=== PATIENT | female | born 1940 | race Caucasian/White ===

== ENCOUNTER 2016-09-27 17:09 | Outpatient (CLI) | payer MEDICARE | END 2016-09-27 17:10 | disposition home or self-care (01) | DX: R10.11 Right upper quadrant pain (principal) ==

== ENCOUNTER 2017-04-04 08:55 | Outpatient (CLI) | payer MEDICARE | END 2017-04-04 08:56 | disposition home or self-care (01) | LOC: LAB.F 08:55 | PROVIDERS: ATTEND Internal Medicine | DX: E03.9 Hypothyroidism, unspecified (principal) | CPT/HCPCS: 36415; 84443 ==

== ENCOUNTER 2017-06-01 09:09 | Outpatient (CLI) | payer MEDICARE | END 2017-06-01 09:10 | disposition home or self-care (01) | LOC: LAB.F 09:09 | PROVIDERS: ATTEND Internal Medicine | DX: E03.9 Hypothyroidism, unspecified (principal) | CPT/HCPCS: 36415; 84443 ==

== ENCOUNTER 2018-04-18 08:04 | Outpatient (CLI) | payer MEDICARE ==
[2018-04-18 11:10] LABS: BASOPHILS % (AUTO) 0.8 %; EOSINOPHILS # (AUTO) 0.1 10^3/uL (0.0-0.7); EOSINOPHILS % (AUTO) 2.4 %; HGB - HEMOGLOBIN 14.5 g/dL (12.0-16.0); LYMPHOCYTES # (AUTO) 1.8 10^3/uL (1.5-3.5); LYMPHOCYTES % (AUTO) 31.8 %; MEAN CORPUSCULAR HEMOGLOBIN 30.2 pg (27.0-31.0); MEAN CORPUSCULAR HGB CONC 33.9 g/dL (32.0-36.0); MEAN PLATELET VOLUME 10.5 fL (7.9-10.8); MONOCYTES # (AUTO) 0.4 10^3/uL (0.0-1.0); MONOCYTES % (AUTO) 7.5 %; NEUTROPHILS # (AUTO) 3.3 10^3/uL (1.5-6.6); NEUTROPHILS % (AUTO) 57.5 %; PLT - PLATELET COUNT 142 10^3/uL (130-450); RED BLOOD COUNT 4.82 10^6/uL (4.20-5.40); WHITE BLOOD COUNT 5.7 x10^3/uL (4.8-10.8)
[2018-04-18 11:23] LABS: ALBUMIN/GLOBULIN RATIO 1.4 (1.0-2.2); ALKALINE PHOSPHATASE 58 IU/L (42-121); ALT ALANINE AMINOTRANSFERASE 12 IU/L (10-60); AST ASPARTATE AMINOTRANSFERASE 17 IU/L (10-42); BILIRUBIN,TOTAL 0.7 mg/dL (0.2-1.0); BUN - BLOOD UREA NITROGEN 16 mg/dL (6-20); CARBON DIOXIDE - CO2 26 mmol/L (21-32); CHLORIDE 107 mmol/L (101-111); CREATININE 0.8 mg/dL (0.4-1.0); GFR - MDRD 70 (>89); GLUCOSE 101 mg/dL (70-100); SODIUM 141 mmol/L (135-145); TOTAL PROTEIN 6.8 g/dL (6.7-8.2)
[2018-04-18 11:24] LABS: CRP - C-REACTIVE PROTEIN < 1.0 mg/dL (0-1.0)
== END 2018-04-18 08:05 | disposition home or self-care (01) ==
LOC: LAB.F 08:04
PROVIDERS: ATTEND Internal Medicine
DX: R42 Dizziness and giddiness (principal); F17.200 Nicotine dependence, unspecified, uncomplicated; K21.9 Gastro-esophageal reflux disease without esophagitis; E03.9 Hypothyroidism, unspecified; Z79.899 Other long term (current) drug therapy
CPT/HCPCS: 36415; 80053; 84443; 85025; 85651; 86140

== ENCOUNTER 2018-07-03 13:16 | Outpatient (CLI) | payer MEDICARE | END 2018-07-03 13:17 | disposition home or self-care (01) | LOC: LAB.F 13:16 | PROVIDERS: ATTEND Internal Medicine | DX: E03.9 Hypothyroidism, unspecified (principal) | CPT/HCPCS: 36415; 84443 ==

== ENCOUNTER 2018-08-31 14:38 | Outpatient (CLI) | payer MEDICARE | END 2018-08-31 14:39 | disposition home or self-care (01) | LOC: LAB.F 14:38 | PROVIDERS: ATTEND Internal Medicine | DX: E03.9 Hypothyroidism, unspecified (principal) | CPT/HCPCS: 36415; 84443 ==

== ENCOUNTER 2018-10-10 10:15 | Emergency (ER) | payer MEDICARE ==
[2018-10-10 10:47] LABS: BILIRUBIN,URINE NEGATIVE (NEGATIVE); GLUCOSE, URINE (UA) NEGATIVE (NEGATIVE); KETONES,URINE (UA) NEGATIVE (NEGATIVE); LEUKOCYTE ESTERASE, URINE NEGATIVE (NEGATIVE); NITRITE,URINE NEGATIVE (NEGATIVE); OCCULT BLOOD,URINE SMALL (NEGATIVE); PH,URINE 5.5 PH (5.0-7.5); PROTEIN,URINE NEGATIVE (NEGATIVE); UROBILINOGEN,URINE 0.2 (NORMAL) E.U./dL (NORMAL)
[2018-10-10 10:49] LABS: CLARITY,URINE CLEAR (CLEAR)
[2018-10-10 11:01] LABS: BACTERIA,URINE Few /HPF (None Seen); RBC,URINE 0-5 /HPF (0-5); SQUAMOUS EPITHELIAL CELL,UR FEW Squamous (<= Few)
[2018-10-10 11:05] LABS: BASOPHILS # (AUTO) 0.1 10^3/uL (0.0-0.1); BASOPHILS % (AUTO) 1.2 %; EOSINOPHILS # (AUTO) 0.1 10^3/uL (0.0-0.7); HGB - HEMOGLOBIN 14.1 g/dL (12.0-16.0); LYMPHOCYTES # (AUTO) 1.9 10^3/uL (1.5-3.5); LYMPHOCYTES % (AUTO) 19.7 %; MEAN CORPUSCULAR HEMOGLOBIN 29.4 pg (27.0-31.0); MEAN CORPUSCULAR VOLUME 86.5 fL (81.0-99.0); MEAN PLATELET VOLUME 9.5 fL (7.9-10.8); MONOCYTES # (AUTO) 0.6 10^3/uL (0.0-1.0); MONOCYTES % (AUTO) 5.8 %; NEUTROPHILS % (AUTO) 72.3 %; PLT - PLATELET COUNT 177 10^3/uL (130-450); RED BLOOD COUNT 4.81 10^6/uL (4.20-5.40); RED CELL DISTRIBUTION WIDTH 13.4 % (12.0-15.0); WHITE BLOOD COUNT 9.6 x10^3/uL (4.8-10.8)
--- NOTE | 2018-10-10 11:09 | XRAY Report ---
Reason: cough Procedure Date: 10/10/2018 Accession Number: [id number] / [id number] Procedure: XR - Chest 2 View X-Ray CPT Code: 04475 FULL RESULT: EXAM: CHEST RADIOGRAPHY EXAM DATE: 10/10/2018 10:49 AM. CLINICAL HISTORY: Cough. COMPARISON: XR CHEST PA AND LAT 01/30/2009 1:11 PM. TECHNIQUE: 2 views. FINDINGS: Lungs/Pleura: Biapical pleural thickening. Biapical scarring. Linear atelectasis or scarring in the lung bases No focal opacities evident. No pleural effusion. No pneumothorax. Hyperlucent lung dawkins with increased AP diameter, flattened hemidiaphragms Mediastinum: Heart and mediastinal contours are unremarkable. Other: Chronic compressions mid and lower vertebral bodies. DJD IMPRESSION: 1. COPD RADIA
[2018-10-10 11:20] LABS: ALBUMIN 3.8 g/dL (3.2-5.5); ALBUMIN/GLOBULIN RATIO 1.1 (1.0-2.2); BILIRUBIN,TOTAL 0.9 mg/dL (0.2-1.0); CALCIUM 9.1 mg/dL (8.5-10.3); CREATININE 0.7 mg/dL (0.4-1.0); TOTAL PROTEIN 7.2 g/dL (6.7-8.2)
--- NOTE | 2018-10-10 12:02 | ED Physician Documentation ---
PD HPI URI - Stated complaint Stated Complaint: FLU LIKE SYMPTOMS - Chief complaint Chief Complaint: Resp - History obtained from History obtained from: Patient - History of Present Illness Timing - onset: How many days ago (9) Timing duration: Days (9) Timing details: Gradual onset, Still present Associated symptoms: Chills, Ear pain (for few days), Nasal congestion, Sore throat, Dry cough Contributing factors: No: Travel, COPD / asthma Recently seen: Not recently seen Review of Systems Constitutional: reports: Chills, Myalgias. 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 HEENT: Cataracts - Present Medications Home Medications: Ambulatory Orders Medication Instructions Recorded Confirmed Levothyroxine [Synthroid] 150 mcg PO QDAC 11/15/12 03/01/15 Sertraline [Zoloft] 25 mg PO DAILY 11/15/12 03/01/15 Amoxicillin/Potassium Clav 1 each PO BID #20 tablet 03/01/15 [Augmentin 875-125 Tablet] Albuterol Sulf [Ventolin Hfa 2 - 3 puffs INH Q4HR PRN #1 inhaler 10/10/18 Inhaler] Benzonatate [Tessalon Perle] 100 mg PO TID PRN #30 capsule 10/10/18 Dexamethasone [Decadron] 4 mg PO DAILY #5 tablet 10/10/18 Doxycycline Hyclate 100 mg PO BID #14 capsule 10/10/18 - Allergies Allergies/Adverse Reactions: Allergies Allergy/AdvReac Type Severity Reaction Status Date / Time No Known Drug Allergies Allergy Verified 10/10/18 10:30 - Living Situation Living Arrangement: reports: Assisted living - Social History Does the pt smoke?: Yes Smoking Status: Current every day smoker Does the pt drink ETOH?: No Does the pt have substance abuse?: No - Immunizations Immunizations are current?: Yes - POLST Patient has POLST: No PD ED PE NORMAL - Vitals Vital signs reviewed: Yes - General General: Alert and oriented X 3, No acute distress, Well developed/nourished - HEENT HEENT: Pharynx benign - Neck Neck: Supple, no meningeal sign, No adenopathy - Cardiac Cardiac: RRR, No murmur - Respiratory Respiratory: Clear bilaterally - Abdomen Abdomen: Soft, Non tender - Derm Derm: Normal color, Warm and dry - Extremities Extremities: No edema, No calf tenderness / cord Results - Vitals Vitals: Oxygen O2 Source Room air - Labs Labs: Laboratory Tests 10/10/18 10/10/18 10/10/18 10:39 10:53 10:53 WBC 9.6 RBC 4.81 Hgb 14.1 Hct 41.6 MCV 86.5 MCH 29.4 MCHC 34.0 RDW 13.4 Plt Count 177 MPV 9.5 Neut # (Auto) 7.0 H Lymph # (Auto) 1.9 [place] # (Auto) 0.6 Eos # (Auto) 0.1 Baso # (Auto) 0.1 Absolute Nucleated RBC 0.00 Nucleated RBC % 0.0 Sodium 137 Potassium 3.7 Chloride 106 Carbon Dioxide 23 Anion Gap 8.0 BUN 16 Creatinine 0.7 Estimated GFR (MDRD) 81 L Glucose 119 H Calcium 9.1 Total Bilirubin 0.9 AST 21 ALT 14 Alkaline Phosphatase 78 Total Protein 7.2 Albumin 3.8 Globulin 3.4 Albumin/Globulin Ratio 1.1 Lipase 26 Urine Color YELLOW Urine Clarity CLEAR Urine pH 5.5 Ur Specific [place] 1.015 Urine Protein NEGATIVE Urine Glucose (UA) NEGATIVE Urine Ketones NEGATIVE Urine Occult Blood SMALL H Urine Nitrite NEGATIVE Urine Bilirubin NEGATIVE Urine Urobilinogen 0.2 (NORMAL) Ur Leukocyte Esterase NEGATIVE Urine RBC 0-5 Urine WBC 4-5 Ur Squamous Epith Cells FEW Squamous Urine Bacteria Few Ur Microscopic Review INDICATED Urine Culture Comments NOT INDICATED - Rads (name of study) chest xray Radiology: Prelim report reviewed (hyperinflated c/w COPD; no infiltrates) PD MEDICAL DECISION MAKING - ED course Complexity details: considered differential, d/w patient Departure - Departure Disposition: 01 Home, Self Care Clinical Impression: Upper respiratory infection Qualifiers: URI type: unspecified URI Qualified Code(s): J06.9 - Acute upper respiratory infection, unspecified Condition: Stable Record reviewed to determine appropriate education?: Yes Instructions: ED Upper Resp Infec No Abx Tx Follow-Up: Demmler,Rene W, MD [Primary Care Provider] - Prescriptions: Albuterol Sulf [Ventolin Hfa Inhaler] 2 - 3 puffs INH Q4HR PRN #1 inhaler PRN Reason: Shortness Of Air/Wheezing Benzonatate [Tessalon Perle] 100 mg PO TID PRN #30 capsule PRN Reason: Cough Dexamethasone [Decadron] 4 mg PO DAILY #5 tablet Doxycycline Hyclate 100 mg PO BID #14 capsule Comments: stay well hydrated. Use the albuterol inhaler 2-3 puffs 4 times daily for the next week or so. Decadron steroid daily as directed. Tessalon for cough. If not improving over the next few days, then could add antibiotic. Discharge Date/Time: 10/10/18 12:46
[2018-10-10 12:32] VITALS: BP 152/109
== END 2018-10-10 12:46 | disposition home or self-care (01) ==
LOC: ED 10:15
DX: J06.9 Acute upper respiratory infection, unspecified (principal); F17.200 Nicotine dependence, unspecified, uncomplicated
CPT/HCPCS: 36415; 71046; 80053; 81001; 81003; 83690; 85025; 87086; 99283

== ENCOUNTER 2018-11-06 09:29 | Outpatient (CLI) | payer MEDICARE ==
[2018-11-06 17:59] LABS: THYROID STIMULATING HORMONE 4.8 uIU/mL (0.34-5.60)
[2018-11-06 18:01] LABS: FREE T4 (FREE THYROXINE) 1.09 ng/dL (0.58-1.64)
== END 2018-11-06 09:30 | disposition home or self-care (01) ==
LOC: LAB.F 09:29
PROVIDERS: ATTEND Family Medicine
DX: E03.9 Hypothyroidism, unspecified (principal)
CPT/HCPCS: 36415; 84439; 84443; 84481

== ENCOUNTER 2019-01-21 08:00 | Outpatient (CLI) | payer MEDICARE | END 2019-01-21 23:59 | disposition home or self-care (01) | LOC: LAB.R 08:00 | PROVIDERS: ATTEND Physician Assistant Medical | DX: N39.0 Urinary tract infection, site not specified (principal) | CPT/HCPCS: 81002; 87086; 87181 ==

== ENCOUNTER 2019-01-22 14:06 | Outpatient (CLI) | payer MEDICARE ==
[2019-01-22 18:16] LABS: BASOPHILS # (AUTO) 0.1 10^3/uL (0.0-0.1); EOSINOPHILS # (AUTO) 0.2 10^3/uL (0.0-0.7); EOSINOPHILS % (AUTO) 1.9 %; HGB - HEMOGLOBIN 14.2 g/dL (12.0-16.0); LYMPHOCYTES # (AUTO) 2.6 10^3/uL (1.5-3.5); LYMPHOCYTES % (AUTO) 32.8 %; MEAN CORPUSCULAR HEMOGLOBIN 29.9 pg (27.0-31.0); MEAN CORPUSCULAR HGB CONC 33.2 g/dL (32.0-36.0); MEAN CORPUSCULAR VOLUME 90.1 fL (81.0-99.0); MEAN PLATELET VOLUME 13.4 fL (7.9-10.8); MONOCYTES # (AUTO) 0.5 10^3/uL (0.0-1.0); MONOCYTES % (AUTO) 6.2 %; NEUTROPHILS # (AUTO) 4.6 10^3/uL (1.5-6.6); NEUTROPHILS % (AUTO) 57.7 %; PLT - PLATELET COUNT 181 10^3/uL (130-450); RED BLOOD COUNT 4.75 10^6/uL (4.20-5.40); RED CELL DISTRIBUTION WIDTH 13.2 % (12.0-15.0)
[2019-01-22 19:05] LABS: T4 (THYROXINE) 12.3 ug/dL (6.09-12.23)
[2019-01-22 19:08] LABS: THYROID STIMULATING HORMONE 0.08 uIU/mL (0.34-5.60)
[2019-01-22 21:14] LABS: PLATELET ESTIMATE, MANUAL NORMAL (130-450,000) (NORMAL); PLATELET MORPHOLOGY 1+ LARGE PLATELETS (NORMAL); RBC MORPHOLOGY (MULTIPLE) NORMAL APPEARANCE (NORMAL)
== END 2019-01-22 14:07 | disposition home or self-care (01) ==
LOC: LAB.S 14:06
PROVIDERS: ATTEND Physician Assistant Medical
DX: E03.9 Hypothyroidism, unspecified (principal); R68.83 Chills (without fever); N39.0 Urinary tract infection, site not specified
CPT/HCPCS: 36415; 84436; 84443; 84481; 85025

== ENCOUNTER 2019-03-14 09:53 | Outpatient (CLI) | payer MEDICARE ==
--- NOTE | 2019-03-15 08:37 | Mammography Report ---
Reason: SCREENING MAMMOGRAM Procedure Date: 03/14/2019 Accession Number: [id number] / [id number] Procedure: MGS - Screening Mammo Dig Bilat CPT Code: FULL RESULT: EXAM: Screening Mammo Dig Bilat DATE: 03/14/2019 10:21 AM CLINICAL HISTORY: Screening encounter. History of early menses. TECHNIQUE: (B) - Bilateral CC, laterally exaggerated CC, MLO views were obtained. COMPARISON: None PARENCHYMAL PATTERN: (D) - The breast(s) demonstrate(s) heterogeneously dense fibroglandular parenchyma. FINDINGS: There are no suspicious masses, calcifications, or areas of distortion. IMPRESSION: Negative examination. BI-RADS category 1. RECOMMENDATION: (ANNUAL) - Recommend routine annual screening mammography. BI-RADS CATEGORY: (1) - Negative. STANDARD QUALIFYING STATEMENTS: 1. This examination was reviewed with the aid of Computer-Aided Detection (CAD). 2. A negative or benign imaging report should not preclude biopsy if clinically suspicious findings are present. 3. Dense breasts may obscure an underlying neoplasm. 4. This examination was reviewed without the aid of 3D breast imaging (tomosynthesis).
== END 2019-03-14 09:54 | disposition home or self-care (01) ==
LOC: DI.S 09:53
PROVIDERS: ATTEND Physician Assistant Medical
DX: Z12.31 Encounter for screening mammogram for malignant neoplasm of breast (principal)
CPT/HCPCS: 77067

== ENCOUNTER 2019-04-19 11:37 | Outpatient (CLI) | payer MEDICARE ==
[2019-04-19 18:31] LABS: THYROID STIMULATING HORMONE 0.23 uIU/mL (0.34-5.60)
[2019-04-19 18:35] LABS: FREE T4 (FREE THYROXINE) 1.32 ng/dL (0.58-1.64)
== END 2019-04-19 11:38 | disposition home or self-care (01) ==
LOC: LAB.S 11:37
PROVIDERS: ATTEND Physician Assistant Medical
DX: E03.9 Hypothyroidism, unspecified (principal)
CPT/HCPCS: 36415; 84439; 84443; 84481

== ENCOUNTER 2019-06-28 08:58 | Outpatient (CLI) | payer MEDICARE ==
--- NOTE | 2019-06-28 10:50 | CT Report ---
Reason: HX OF SMOKING Procedure Date: 06/28/2019 Accession Number: [id number] / [id number] Procedure: CT - Low Dose Lung Cancer Screen CPT Code: Final Report FULL RESULT: EXAM CT LUNG SCREEN EXAM DATE: 06/28/2019 09:22 AM. HISTORY: 78-year-old patient with [id number] smoking history. Currently smoking: Yes. COMPARISON: CHEST 02/03/2009 8:34 AM. TECHNIQUE: CT examination of the entire thorax without contrast was performed using low-dose technique. Thin section coronal, axial, sagittal and MIP axial images were obtained. In accordance with CT protocol optimization, one or more of the following dose reduction techniques were utilized for this exam: automated exposure control, adjustment of mA and/or KV based on patient size, or use of iterative reconstructive technique. FINDINGS: Nodules: Right upper lobe: 2 mm nodule image 52 series 4. 2 mm nodule image 54. Right middle lobe: None. Right lower lobe: 3 mm nodule image 71. Left upper lobe: 3 mm nodule image 32. 2 mm nodule image 53. Two nodules on image 57, 3 mm and 2 mm, respectively. Left lower lobe: 4 mm nodule image 132. 2 mm nodule image 129. Two nodules on image 93 measuring 2 and 3 mm, respectively. Emphysema: Mild Pleura: Unremarkable. Aorta: Mild calcifications. Mediastinum: Unremarkable. Coronary calcifications: None. Other pulmonary findings: Mild linear changes at lung bases, scarring versus minimal atelectasis. Other extrapulmonary findings: None. IMPRESSION: Lung-RADS ASSESSMENT CATEGORY: 2 - benign-appearance or behavior. Probability of malignancy: Less than 1%. RECOMMENDATION: Continue annual low-dose chest CT. RADIA
== END 2019-06-28 08:59 | disposition home or self-care (01) ==
LOC: DI 08:58
PROVIDERS: ATTEND Physician Assistant Medical
DX: Z12.2 Encounter for screening for malignant neoplasm of respiratory organs (principal); J43.9 Emphysema, unspecified; F17.210 Nicotine dependence, cigarettes, uncomplicated

== ENCOUNTER 2019-07-05 09:22 | Outpatient (CLI) | payer MEDICARE ==
--- NOTE | 2019-07-08 10:11 | DEXA Report ---
Reason: POSTMENOPAUSAL Procedure Date: 07/05/2019 Accession Number: [id number] / [id number] Procedure: DEX - Dexa Spine and/or Hip CPT Code: Final Report FULL RESULT: EXAM: Dexa Spine and/or Hip DATE: 07/05/2019 10:01 AM CLINICAL HISTORY: POSTMENOPAUSAL TECHNIQUE: Dual energy x-ray absorptiometry (DXA) was performed on a [employer] System. Regions measured are the AP Spine, femoral neck, and if needed forearm. COMPARISON: None. In accordance with the International Society for Clinical Densitometry (ISCD) guidelines, data from previous exams may be reanalyzed using current recommendations and techniques. This is done to allow a more accurate basis for comparison with the current study. FINDINGS: The data for the lumbar spine is as follows: BMD (g/cm/cm) T-SCORE Z-SCORE REGION L1 0.890 -2.0 -0.5 L2 0.878 -2.7 -1.1 L3 0.862 -2.8 -1.3 L4 0.891 -2.6 -1.0 TOTAL 0.882 -2.5 -0.9 NOTE: All evaluable vertebrae are used for classification The data for the hip is as follows: BMD (g/cm/cm) T-SCORE Z-SCORE REGION Neck 0.712 -2.3 -0.5 TOTAL 0.746 -2.1 -0.4 NOTE: The femoral neck or total proximal femur, whichever is lowest, is used for classification. IMPRESSION: THE WHO CLASSIFICATION BASED ON THE INTERNATIONAL REFERENCE STANDARD IS OSTEOPOROSIS. THE FRACTURE RISK IS HIGH. RECOMMENDATION: Patients with diagnosis of osteoporosis or osteopenia should have regular bone mineral density assessment. For those eligible for Medicare, routine testing is allowed once every 2 years. Testing frequency can be increased for patients who have rapidly progressing disease or for those who are receiving medical therapy to restore bone mass. COMMENT: World Health Organization (WHO) definitions for osteoporosis and osteopenia: NORMAL BMD: T-score at -1.0 or higher, fracture risk is low OSTEOPENIA BMD: T-score between -1.0 and -2.5, fracture risk is increased. OSTEOPOROSIS BMD: T-score at -2.5 or lower, fracture risk is high. National Osteoporosis Foundation recommends: 1. Obtain adequate dietary calcium (at least 1200 mg per day) and vitamin D (400-800 international units per day). 2. Participate, as appropriate, in regular weightbearing and muscle-strengthening exercise. 3. Avoid tobacco use and reduce alcohol and caffeine intake. 4. For more detailed information see the website at www.NOF.org.
== END 2019-07-05 09:23 | disposition home or self-care (01) ==
LOC: DI 09:22
PROVIDERS: ATTEND Physician Assistant Medical
DX: M81.0 Age-related osteoporosis without current pathological fracture (principal); Z78.0 Asymptomatic menopausal state
CPT/HCPCS: 77080

== ENCOUNTER 2019-07-18 07:32 | Outpatient (CLI) | payer MEDICARE ==
[2019-07-18 10:47] LABS: BASOPHILS # (AUTO) 0.1 10^3/uL (0.0-0.1); BASOPHILS % (AUTO) 1.5 %; EOSINOPHILS # (AUTO) 0.2 10^3/uL (0.0-0.7); EOSINOPHILS % (AUTO) 2.1 %; HGB - HEMOGLOBIN 14.9 g/dL (12.0-16.0); LYMPHOCYTES # (AUTO) 2.5 10^3/uL (1.5-3.5); LYMPHOCYTES % (AUTO) 34.2 %; MEAN CORPUSCULAR HGB CONC 32.6 g/dL (32.0-36.0); MEAN CORPUSCULAR VOLUME 92.1 fL (81.0-99.0); MEAN PLATELET VOLUME 12.3 fL (7.9-10.8); MONOCYTES # (AUTO) 0.5 10^3/uL (0.0-1.0); MONOCYTES % (AUTO) 7.1 %; NEUTROPHILS # (AUTO) 3.9 10^3/uL (1.5-6.6); NEUTROPHILS % (AUTO) 54.8 %; PLT - PLATELET COUNT 158 10^3/uL (130-450); RED BLOOD COUNT 4.96 10^6/uL (4.20-5.40); RED CELL DISTRIBUTION WIDTH 13.6 % (12.0-15.0); WHITE BLOOD COUNT 7.2 x10^3/uL (4.8-10.8)
[2019-07-18 11:38] LABS: ALBUMIN 4.1 g/dL (3.2-5.5); ALBUMIN/GLOBULIN RATIO 1.4 (1.0-2.2); ALKALINE PHOSPHATASE 58 IU/L (42-121); ALT ALANINE AMINOTRANSFERASE 12 IU/L (10-60); AST ASPARTATE AMINOTRANSFERASE 16 IU/L (10-42); BILIRUBIN,TOTAL 0.7 mg/dL (0.2-1.0); BUN - BLOOD UREA NITROGEN 17 mg/dL (6-20); CARBON DIOXIDE - CO2 27 mmol/L (21-32); CHLORIDE 104 mmol/L (101-111); CHOL/HDL RATIO 4.2 (<4.4); CHOLESTEROL 240 mg/dL; CREATININE 0.7 mg/dL (0.4-1.0); GFR - MDRD 81 (>89); GLUCOSE 104 mg/dL (70-100); HDL CHOLESTEROL 57 mg/dL; LDL CHOLESTEROL,CALCULATED 160 mg/dL; LDL/HDL RATIO 2.8 (<4.4); SODIUM 138 mmol/L (135-145); VLDL CHOLESTEROL 23 mg/dL
[2019-07-18 11:48] LABS: THYROID STIMULATING HORMONE 8.3 uIU/mL (0.34-5.60)
[2019-07-18 11:51] LABS: FREE T4 (FREE THYROXINE) 1.04 ng/dL (0.58-1.64)
== END 2019-07-18 07:33 | disposition home or self-care (01) ==
LOC: LAB.S 07:32
PROVIDERS: ATTEND Physician Assistant Medical
DX: I10 Essential (primary) hypertension (principal); E78.5 Hyperlipidemia, unspecified; E03.9 Hypothyroidism, unspecified
CPT/HCPCS: 36415; 80053; 80061; 83721; 84439; 84443; 84481; 85025; 86800

== ENCOUNTER 2019-08-12 11:37 | Outpatient (CLI) | payer MEDICARE | END 2019-08-12 11:38 | disposition critical access hospital (66) | LOC: EMS 11:37 | PROVIDERS: ATTEND Surgery | DX: R07.9 Chest pain, unspecified (principal) | CPT/HCPCS: A0425; A0429 ==

== ENCOUNTER 2019-08-12 12:10 | Emergency (ER) | payer MEDICARE ==
--- NOTE | 2019-08-12 12:39 | ED Physician Documentation ---
PD HPI CHEST PAIN - Stated complaint Stated Complaint: CHEST PX - Chief complaint Chief Complaint: Cardiac - History obtained from History obtained from: Patient, Family, EMS - History of Present Illness Timing - onset: Today Timing - onset during: Rest Timing - duration: Minutes (10) Timing - details: Abrupt onset Pain level max: 8 Pain level now: 0 Quality: Sharp Location: Other (center of chest) Radiation: No: Jaw, Neck, Back, Abdominal, Left upper extremity, Right upper extremity Improved by: Nothing. No: Rest, ASA Worsened by: Palpation. No: Exertion, Inspiration, Eating, Movement, Position Associated symptoms: Nausea. No: Shortness of air, Diaphoresis, Vomiting, Feeling faint / dizzy, General Weakness, Palpitations, Cough Similar symptoms before: Diagnosis (States normal cardiac stress test approximately 10 years ago. No history of cardiac disease. Saw her doctor this morning. Started on lisinopril.) - Additional information Additional information: No recent surgeries. No recent trauma. No recent illnesses. Review of Systems Constitutional: denies: Fever, Chills Nose: denies: Rhinorrhea / runny nose, Congestion Throat: denies: Sore throat Cardiac: denies: Palpitations Respiratory: denies: Cough GI: denies: Vomiting Skin: denies: Rash Musculoskeletal: denies: Neck pain, Back pain Neurologic: denies: Focal weakness, Numbness, Headache PD PAST MEDICAL HISTORY - Past Medical History Past Medical History: Yes Cardiovascular: Hypertension Respiratory: None Neuro: Other Endocrine/Autoimmune: HyPOthyroidism GI: None : None HEENT: None Psych: Anxiety, Panic attacks Musculoskeletal: Osteoarthritis Derm: None Other Past Medical History: Vertigo - Past Surgical History 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 HEENT: Cataracts - Present Medications Home Medications: Ambulatory Orders Medication Instructions Recorded Confirmed Levothyroxine [Synthroid] 125 mcg PO QDAC 11/15/12 03/01/15 - Allergies Allergies/Adverse Reactions: Allergies Allergy/AdvReac Type Severity Reaction Status Date / Time No Known Drug Allergies Allergy Verified 08/12/19 12:21 - Social History Does the pt smoke?: Yes Smoking Status: Former smoker Does the pt drink ETOH?: No Does the pt have substance abuse?: No - Immunizations Immunizations are current?: Yes Immunizations: TDAP >10years/unknown - POLST Patient has POLST: No PD ED PE NORMAL - Vitals Vital signs reviewed: Yes - General General: Alert and oriented X 3, No acute distress, Well developed/nourished - HEENT HEENT: Moist mucous membranes - Neck Neck: Supple, no meningeal sign - Cardiac Cardiac: RRR, No murmur, Strong equal pulses - Respiratory Respiratory: No respiratory distress, Clear bilaterally - Abdomen Abdomen: Soft, Non tender, Non distended - Derm Derm: Warm and dry - Extremities Extremities: No edema, No calf tenderness / cord - Neuro 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 - Psych Psych: Normal mood, Normal affect Results - Vitals Vitals: Vital Signs - 24 hr 08/12/19 12:14 Temperature 36.8 C Heart Rate 61 Respiratory 18 Rate Blood Pressure 188/90 H O2 Saturation 97 Oxygen O2 Source Room air - EKG (time done) 1216 Rate: Rate (enter#) (57) Rhythm: NSR [place]: Normal Intervals: Normal DC QRS: Normal Ischemia: Normal ST segments Compare to prior EKG: Unchanged from prior EKG - Labs Labs: Laboratory Tests 08/12/19 08/12/19 08/12/19 12:41 12:41 12:41 WBC 8.7 RBC 4.87 Hgb 14.7 Hct 44.1 MCV 90.6 MCH 30.2 MCHC 33.3 RDW 13.2 Plt Count 183 MPV 11.9 H Neut # (Auto) 5.0 Lymph # (Auto) 2.9 [place] # (Auto) 0.5 Eos # (Auto) 0.2 Baso # (Auto) 0.1 Absolute Nucleated RBC 0.00 Nucleated RBC % 0.0 Sodium 139 Potassium 4.2 Chloride 100 L Carbon Dioxide 26 Anion Gap 13.0 BUN 20 Creatinine 0.8 Estimated GFR (MDRD) 70 L Glucose 86 Calcium 9.8 Total Bilirubin 0.5 AST 16 ALT 12 Alkaline Phosphatase 55 Troponin I High Sens 3.7 Total Protein 7.1 Albumin 4.1 Globulin 3.0 Albumin/Globulin Ratio 1.4 Lipase 27 - Rads (name of study) Chest x-ray Radiology: Prelim report reviewed, EMP read contemporaneously, See rad report (1. Mild hazy bibasilar pulmonary opacities are new and could reflect atelectasis or mild infection. ) PD MEDICAL DECISION MAKING - ED course Complexity details: reviewed results, re-evaluated patient, considered differential (No ST elevation [place], no aortic dissection, no PE, no tension pneumothorax, no aortic aneurysm), d/w patient, d/w family ED course: Patient with chest wall tenderness on examination, reproduces her pain. Appears consistent with a costochondritis at this time. No symptoms consistent with a pulmonary embolus. No hypoxia or tachycardia. No recent surgery. No evidence of acute coronary syndrome. No evidence of aortic dissection. No changes on EKG. She is well-appearing, nontoxic. No evidence of infection. We will treat symptomatically and have her follow-up with her doctor for cardiac stress test. Patient counseled regarding signs and symptoms for which I believe and urgent re-evaluation would be necessary. Patient with good understanding of and agreement to plan and is comfortable going home at this time This document was made in part using voice recognition software. While efforts are made to proofread this document, sound alike and grammatical errors may occur. Departure - Departure Disposition: 01 Home, Self Care Clinical Impression: Chest wall pain, Costochondritis, acute Condition: Good Instructions: ED Chest Pain Costochondritis, ED Chest Pain Atypical Unkn Cause Follow-Up: Marlene Rapp PA-C [Primary Care Provider] - Within 1 week Comments: You can use Motrin, Tylenol or Aleve as needed for pain. Return if you worsen. You should follow-up with your doctor within the next week for a cardiac stress test. Your testing is normal today.
[2019-08-12 12:45] LABS: BASOPHILS # (AUTO) 0.1 10^3/uL (0.0-0.1); BASOPHILS % (AUTO) 0.8 %; EOSINOPHILS # (AUTO) 0.2 10^3/uL (0.0-0.7); EOSINOPHILS % (AUTO) 1.8 %; HGB - HEMOGLOBIN 14.7 g/dL (12.0-16.0); LYMPHOCYTES # (AUTO) 2.9 10^3/uL (1.5-3.5); LYMPHOCYTES % (AUTO) 33.1 %; MEAN CORPUSCULAR HEMOGLOBIN 30.2 pg (27.0-31.0); MEAN CORPUSCULAR HGB CONC 33.3 g/dL (32.0-36.0); MEAN CORPUSCULAR VOLUME 90.6 fL (81.0-99.0); MEAN PLATELET VOLUME 11.9 fL (7.9-10.8); MONOCYTES # (AUTO) 0.5 10^3/uL (0.0-1.0); MONOCYTES % (AUTO) 5.9 %; NEUTROPHILS % (AUTO) 58.1 %; PLT - PLATELET COUNT 183 10^3/uL (130-450); RED BLOOD COUNT 4.87 10^6/uL (4.20-5.40); RED CELL DISTRIBUTION WIDTH 13.2 % (12.0-15.0); WHITE BLOOD COUNT 8.7 x10^3/uL (4.8-10.8)
--- NOTE | 2019-08-12 12:59 | XRAY Report ---
Reason: Chest pain Procedure Date: 08/12/2019 Accession Number: [id number] / [id number] Procedure: XR - Chest 1 View X-Ray CPT Code: 76374 Final Report FULL RESULT: EXAM: CHEST RADIOGRAPHY EXAM DATE: 08/12/2019 12:32 PM. CLINICAL HISTORY: Chest pain. COMPARISON: CHEST 2 VIEW 10/10/2018 10:42 AM. TECHNIQUE: 1 view. FINDINGS: Lungs/Pleura: Mild hazy right basilar opacities could reflect atelectasis or mild infection. Left lung shows no focal consolidation. No pleural effusion or pneumothorax. Mediastinum: Within exam limitations, the cardiomediastinal contour is normal. Other: None. IMPRESSION: 1. Mild hazy bibasilar pulmonary opacities are new and could reflect atelectasis or mild infection. RADIA
[2019-08-12 13:00] LABS: ALBUMIN 4.1 g/dL (3.2-5.5); ALBUMIN/GLOBULIN RATIO 1.4 (1.0-2.2); BILIRUBIN,TOTAL 0.5 mg/dL (0.2-1.0); CALCIUM 9.8 mg/dL (8.5-10.3); CREATININE 0.8 mg/dL (0.4-1.0); TOTAL PROTEIN 7.1 g/dL (6.7-8.2)
[2019-08-12 14:13] VITALS: BP 172/95
== END 2019-08-12 14:28 | disposition home or self-care (01) ==
LOC: EDUNIT# → ED 12:10
DX: M94.0 Chondrocostal junction syndrome [Tietze] (principal); I10 Essential (primary) hypertension; Z87.891 Personal history of nicotine dependence
CPT/HCPCS: 36415; 71045; 80053; 83690; 84484; 85025; 93005; 99284

== ENCOUNTER 2020-08-14 09:28 | Outpatient (CLI) | payer MEDICARE ==
[2020-08-14 14:46] LABS: BASOPHILS # (AUTO) 0.1 10^3/uL (0.0-0.1); BASOPHILS % (AUTO) 1.1 %; EOSINOPHILS # (AUTO) 0.1 10^3/uL (0.0-0.7); EOSINOPHILS % (AUTO) 1.7 %; HGB - HEMOGLOBIN 14.7 g/dL (12.0-16.0); LYMPHOCYTES # (AUTO) 2.4 10^3/uL (1.5-3.5); LYMPHOCYTES % (AUTO) 33.1 %; MEAN CORPUSCULAR HEMOGLOBIN 30.7 pg (27.0-31.0); MEAN CORPUSCULAR HGB CONC 32.2 g/dL (32.0-36.0); MEAN CORPUSCULAR VOLUME 95.2 fL (81.0-99.0); MEAN PLATELET VOLUME 12.6 fL (7.9-10.8); MONOCYTES # (AUTO) 0.4 10^3/uL (0.0-1.0); MONOCYTES % (AUTO) 5.7 %; NEUTROPHILS # (AUTO) 4.2 10^3/uL (1.5-6.6); NEUTROPHILS % (AUTO) 58.1 %; PLT - PLATELET COUNT 140 10^3/uL (130-450); RED BLOOD COUNT 4.79 10^6/uL (4.20-5.40); RED CELL DISTRIBUTION WIDTH 13.9 % (12.0-15.0); WHITE BLOOD COUNT 7.1 x10^3/uL (4.8-10.8)
[2020-08-14 15:36] LABS: ALBUMIN 4.3 g/dL (3.2-5.5); ALBUMIN/GLOBULIN RATIO 1.6 (1.0-2.2); ALKALINE PHOSPHATASE 53 IU/L (42-121); ALT ALANINE AMINOTRANSFERASE 13 IU/L (10-60); AST ASPARTATE AMINOTRANSFERASE 18 IU/L (10-42); BILIRUBIN,TOTAL 0.6 mg/dL (0.2-1.0); BUN - BLOOD UREA NITROGEN 19 mg/dL (6-20); CALCIUM 9.2 mg/dL (8.5-10.3); CARBON DIOXIDE - CO2 26 mmol/L (21-32); CHLORIDE 107 mmol/L (101-111); CHOL/HDL RATIO 3.7 (<4.4); CHOLESTEROL 205 mg/dL; GLUCOSE 100 mg/dL (70-100); HDL CHOLESTEROL 56 mg/dL; LDL CHOLESTEROL,CALCULATED 118 mg/dL; LDL/HDL RATIO 2.1 (<4.4); VLDL CHOLESTEROL 31 mg/dL
[2020-08-14 16:24] LABS: FREE T4 (FREE THYROXINE) 0.72 ng/dL (0.58-1.64)
== END 2020-08-14 09:29 | disposition home or self-care (01) ==
LOC: LAB.S 09:28
PROVIDERS: ATTEND Physician Assistant
DX: Z00.00 Encounter for general adult medical examination without abnormal findings (principal); E78.5 Hyperlipidemia, unspecified; E03.9 Hypothyroidism, unspecified; I10 Essential (primary) hypertension
CPT/HCPCS: 36415; 80053; 80061; 83721; 84439; 84443; 85025

== ENCOUNTER 2020-09-10 14:41 | Outpatient (CLI) | payer MEDICARE ==
--- NOTE | 2020-09-10 16:29 | CT Report ---
PROCEDURE: CHEST WO INDICATIONS: MULT NODULES OF LUNG TECHNIQUE: Noncontrast 5 mm thick sections acquired from the pulmonary apices to the posterior costophrenic angl es. 7 mm thick coronal and sagittal MIP reformats were then acquired. For radiation dose reduction, the following was used: automated exposure control, adjustment of mA and/or kV according to patient size. COMPARISON: 06/28/2019 CT examination FINDINGS: Image quality: Excellent. Lungs and pleura: No acute air space opacities. Previously seen small bilateral pulmonary nodules w ithin the right upper and lower lobes as well as the left upper and lower lobes are unchanged. No new pulmonary nodules are present. Mild bibasilar scarring is present. Calcified granuloma within the le ft upper lobe. No pleural effusions or pneumothorax. Central and peripheral airways are patent and n ormal in caliber. Mediastinum: Heart size is normal. No pericardial effusion. No mediastinal adenopathy by size crit eria. Thoracic aorta and central pulmonary arteries are normal in size. Esophagus is normal in alexi brittney. No change in small hiatal hernia. Bones and chest wall: Moderate diffuse thoracic kyphosis. No suspicious bony lesions. No vertebral b gwen compression fractures. No axillary or supraclavicular adenopathy by size criteria. The thyroid is normal in size. Abdomen: Visualized upper abdominal solid organs and bowel loops appear normal in the absence of con trast. IMPRESSION: 1. No change in small bilateral pulmonary nodules. Lung RADS2. Repeat screening chest CT in one year is recommended. 2. No change in small hiatal hernia. Reviewed by: Rhys Madison MD on 09/10/2020 4:28 PM PST Approved by: Rhys Madison MD on 09/10/2020 4:28 PM PST Station ID: [id number]
== END 2020-09-10 14:42 | disposition home or self-care (01) ==
LOC: DI 14:41
PROVIDERS: ATTEND Physician Assistant
DX: R91.8 Other nonspecific abnormal finding of lung field (principal)

== ENCOUNTER 2020-09-10 14:42 | Outpatient (CLI) | payer MEDICARE ==
--- NOTE | 2020-09-15 14:31 | Mammography Report ---
BILATERAL DIGITAL SCREENING MAMMOGRAM 3D/2D: 09/10/2020 CLINICAL: Routine screening. Comparison is made to exams dated: 12/08/2015 mammogram, 10/17/2013 mammogram, and 03/14/2019 mammogram - [facility]. The tissue of both breasts is extremely dense, which lowers the sens itivity of mammography. No significant masses, calcifications, or other findings are seen in either breast. There has been no significant interval change. IMPRESSION: NEGATIVE There is no mammographic evidence of malignancy. A 1 year screening mammogram is recommended. This exam was interpreted at Station ID: [id number]. NOTE: For mammograms, a report in lay terms will be sent to the patient. Approximately 15% of breast malignancies will not be visualized mammographically. In the management of a palpable breast mass, a negative mammogram must not discourage biopsy of a clinically suspicious lesion. Electronically Signed By: Bassam Call M.D. slc/penrad:09/15/2020 14:05:17 ACR BI-RADS Category 1: Negative 3341F PARENCHYMAL PATTERN: (VD) - The breast(s) demonstrate(s) extremely dense parenchyma, limiting the sen sitivity of mammography. BI-RADS CATEGORY: (1) - 1 RECOMMENDATION: (ANNUAL) - Recommend routine annual screening mammography. [id number] 1 year screening LATERALITY: (B)
== END 2020-09-10 14:43 | disposition home or self-care (01) ==
LOC: DI 14:42
DX: Z12.31 Encounter for screening mammogram for malignant neoplasm of breast (principal)

== ENCOUNTER 2020-10-09 10:50 | Outpatient (CLI) | payer MEDICARE ==
[2020-10-09 15:59] LABS: THYROID STIMULATING HORMONE 0.44 uIU/mL (0.34-5.60)
== END 2020-10-09 10:51 | disposition home or self-care (01) ==
LOC: LAB.S 10:50
PROVIDERS: ATTEND Physician Assistant
DX: E03.9 Hypothyroidism, unspecified (principal)
CPT/HCPCS: 36415; 84443

== ENCOUNTER 2020-12-23 10:19 | Outpatient (CLI) | payer MEDICARE ==
[2020-12-23 15:52] LABS: THYROID STIMULATING HORMONE 0.92 uIU/mL (0.34-5.60)
[2020-12-25 21:37] LABS: THYROID PEROXIDASE ANTIBODIES 107 IU/mL (<9)
== END 2020-12-23 10:20 | disposition home or self-care (01) ==
LOC: LAB.S 10:19
PROVIDERS: ATTEND Internal Medicine
DX: E03.9 Hypothyroidism, unspecified (principal)
CPT/HCPCS: 36415; 84443; 86376; 86800

== ENCOUNTER 2021-02-08 09:30 | Outpatient (CLI) | payer MEDICARE ==
[2021-02-08 16:02] LABS: THYROID STIMULATING HORMONE 2.53 uIU/mL (0.34-5.60)
== END 2021-02-08 09:31 | disposition home or self-care (01) ==
LOC: LAB.S 09:30
PROVIDERS: ATTEND Internal Medicine
DX: E03.9 Hypothyroidism, unspecified (principal); R29.898 Other symptoms and signs involving the musculoskeletal system
CPT/HCPCS: 36415; 84443; 85651; 86140

== ENCOUNTER 2021-05-06 08:16 | Outpatient (CLI) | payer MEDICARE | END 2021-05-06 23:59 | disposition home or self-care (01) | LOC: LAB 08:16 | PROVIDERS: ATTEND Internal Medicine | DX: R42 Dizziness and giddiness (principal); H69.90 Unspecified Eustachian tube disorder, unspecified ear; J01.00 Acute maxillary sinusitis, unspecified; Z20.822 Contact with and (suspected) exposure to COVID-19 ==

== ENCOUNTER 2021-08-19 08:33 | Outpatient (CLI) | payer MEDICARE ==
[2021-08-19 15:12] LABS: BASOPHILS # (AUTO) 0.1 10^3/uL (0.0-0.1); BASOPHILS % (AUTO) 1.2 %; EOSINOPHILS # (AUTO) 0.1 10^3/uL (0.0-0.7); EOSINOPHILS % (AUTO) 2.2 %; HCT - HEMATOCRIT 45.7 % (37.0-47.0); HGB - HEMOGLOBIN 14.9 g/dL (12.0-16.0); LYMPHOCYTES # (AUTO) 2.3 10^3/uL (1.5-3.5); LYMPHOCYTES % (AUTO) 34.9 %; MEAN CORPUSCULAR HEMOGLOBIN 30.2 pg (27.0-31.0); MEAN CORPUSCULAR HGB CONC 32.6 g/dL (32.0-36.0); MEAN CORPUSCULAR VOLUME 92.7 fL (81.0-99.0); MEAN PLATELET VOLUME 12.4 fL (7.9-10.8); MONOCYTES # (AUTO) 0.4 10^3/uL (0.0-1.0); MONOCYTES % (AUTO) 6.6 %; NEUTROPHILS # (AUTO) 3.6 10^3/uL (1.5-6.6); NEUTROPHILS % (AUTO) 54.8 %; PLT - PLATELET COUNT 165 10^3/uL (130-450); RED BLOOD COUNT 4.93 10^6/uL (4.20-5.40); RED CELL DISTRIBUTION WIDTH 13.8 % (12.0-15.0); WHITE BLOOD COUNT 6.5 x10^3/uL (4.8-10.8)
[2021-08-19 15:37] LABS: ALBUMIN 4.1 g/dL (3.2-5.5); ALBUMIN/GLOBULIN RATIO 1.4 (1.0-2.2); ALKALINE PHOSPHATASE 59 IU/L (42-121); ALT ALANINE AMINOTRANSFERASE 13 IU/L (10-60); AST ASPARTATE AMINOTRANSFERASE 15 IU/L (10-42); BUN - BLOOD UREA NITROGEN 19 mg/dL (6-20); CALCIUM 8.9 mg/dL (8.5-10.3); CARBON DIOXIDE - CO2 27 mmol/L (21-32); CHLORIDE 107 mmol/L (101-111); CHOL/HDL RATIO 4.8 (<4.4); CHOLESTEROL 252 mg/dL; CREATININE 0.8 mg/dL (0.4-1.0); GFR - MDRD 69 (>89); GLUCOSE 102 mg/dL (70-100); HDL CHOLESTEROL 52 mg/dL; LDL CHOLESTEROL,CALCULATED 174 mg/dL; LDL/HDL RATIO 3.3 (<4.4); SODIUM 141 mmol/L (135-145); TOTAL PROTEIN 7.1 g/dL (6.7-8.2); TRIGLYCERIDES 132 mg/dL; VLDL CHOLESTEROL 26 mg/dL
[2021-08-19 16:16] LABS: THYROID STIMULATING HORMONE 8.72 uIU/mL (0.34-5.60)
[2021-08-19 16:54] LABS: FREE T4 (FREE THYROXINE) 1.05 ng/dL (0.58-1.64)
== END 2021-08-19 08:34 | disposition home or self-care (01) ==
LOC: LAB.S 08:33
PROVIDERS: ATTEND Internal Medicine
DX: I10 Essential (primary) hypertension (principal); E78.5 Hyperlipidemia, unspecified; E03.9 Hypothyroidism, unspecified
CPT/HCPCS: 36415; 80053; 80061; 83721; 84439; 84443; 85025

== ENCOUNTER 2021-09-20 09:08 | Outpatient (CLI) | payer MEDICARE ==
--- NOTE | 2021-09-20 10:35 | CT Report ---
PROCEDURE: CHEST WO INDICATIONS: MULTIPLE LUNG NODULES TECHNIQUE: Noncontrast 1mm axial images were acquired from the pulmonary apices to the posterior costophrenic an gles. Axial 5 mm soft tissue kernel reconstructions were performed as well as 8 mm axial MIP and cor onal and sagittal 5 mm reformations. For radiation dose reduction, the following was used: automate d exposure control, adjustment of mA and/or kV according to patient size. COMPARISON: Chest CT 09/10/2020, 06/28/2019 FINDINGS: Image quality: Excellent. Lungs and pleura: There are a few pulmonary nodules including: -Right upper lobe 0.3 cm nodule (4/127), new from prior studies. -Right lower lobe 0.2 cm nodule (4/218), stable. There is a nodular focus of mucus plugging on series 4 image 121 in the right lower lobe. There is mi ld scarring in the lung apices and bases. No acute consolidation. No pleural effusions or pneumothora x. The trachea and central airways appear patent. Mediastinum: Heart size is normal. No pericardial effusion. No mediastinal adenopathy by size crit eria. Thoracic aorta and central pulmonary arteries are normal in size. Esophagus is normal in alexi brittney. There is a small hiatal hernia. Bones and chest wall: No suspicious bony lesions. No vertebral body compression fractures. No axil lisa or supraclavicular adenopathy by size criteria. The thyroid demonstrates no discrete nodules. Abdomen: Visualized upper abdominal solid organs and bowel loops appear normal in the absence of con trast. IMPRESSION: 1. New small 0.3 cm nodule in the right upper lobe. 2. A follow-up study maybe performed in 12 months to demonstrate stability if clinically indicated. Reviewed by: Shmuel Patterson MD on 09/20/2021 10:34 AM PST Approved by: Shmuel Patterson MD on 09/20/2021 10:34 AM PST Station ID: [id number]
== END 2021-09-20 09:09 | disposition home or self-care (01) ==
LOC: DI 09:08
PROVIDERS: ATTEND Nurse Practitioner Family
DX: R91.1 Solitary pulmonary nodule (principal); M81.0 Age-related osteoporosis without current pathological fracture

== ENCOUNTER 2021-09-20 09:37 | Outpatient (CLI) | payer MEDICARE ==
--- NOTE | 2021-09-20 10:04 | DEXA Report ---
PROCEDURE: Dexa Spine and/or Hip INDICATIONS: OSTEOPOROSIS TECHNIQUE: Dual energy x-ray absorptiometry (DXA) was performed on a [employer] System. Regions measur ed are the AP Spine, femoral neck, and if needed forearm. COMPARISON: 07/05/2019 FINDINGS: Lumbar Spine: Bone Mineral Density 0.868 g/cm/cm,T score -2.8, osteoporosis Left Hip: Bone Mineral Density 0.760 g/cm/cm,T score -2.0, osteopenia Left Femoral Neck: Bone Mineral Density 0.724 g/cm/cm, T score -2.3, osteopenia (T score greater or equal to -1.0: NORMAL) (T score from -1.1 to -2.4: OSTEOPENIA) (T score less than or equal to -2.5 to: OSTEOPOROSIS) Impression: OSTEOPOROSIS. Patient is at high risk for fracture. There has been a 1.3% decrease in bone mineral de nsity compared to 2019 exam. Patients with diagnosis of osteoporosis or osteopenia should have regular bone mineral density assess ment. For those eligible for Medicare, routine testing is allowed once every 2 years. Testing frequ ency can be increased for patients who have rapidly progressing disease or for those who are receivin g medical therapy to restore bone mass. Reviewed by: Russell Her MD on 09/20/2021 10:02 AM PST Approved by: Russell Her MD on 09/20/2021 10:02 AM PST Station ID: [id number]
== END 2021-09-20 09:38 | disposition home or self-care (01) ==
LOC: DI 09:37
PROVIDERS: ATTEND Nurse Practitioner Family
DX: M81.0 Age-related osteoporosis without current pathological fracture (principal)

== ENCOUNTER 2021-09-28 07:45 | Outpatient (CLI) | payer MEDICARE ==
--- NOTE | 2021-10-05 10:25 | Mammography Report ---
BILATERAL DIGITAL SCREENING MAMMOGRAM 3D/2D: 09/28/2021 CLINICAL: Routine screening. Comparison is made to exams dated: 09/28/2021 mammogram, 03/14/2019 mammogram, 09/10/2020 mammogram, an d 12/08/2015 mammogram - [facility]. The tissue of both breasts is extremely dense, which lowers the sensitivity of mammography. No significant masses, calcifications, or other findings are seen in either breast. There has been no significant interval change. IMPRESSION: NEGATIVE There is no mammographic evidence of malignancy. A 1 year screening mammogram is recommended. This exam was interpreted at Station ID: [id number]. NOTE: For mammograms, a report in lay terms will be sent to the patient. Approximately 15% of breast malignancies will not be visualized mammographically. In the management of a palpable breast mass, a negative mammogram must not discourage biopsy of a clinically suspicious lesion. Electronically Signed By: Bassam Call M.D. slc/penrad:10/04/2021 07:51:43 ACR BI-RADS Category 1: Negative 3341F PARENCHYMAL PATTERN: (VD) - The breast(s) demonstrate(s) extremely dense parenchyma, limiting the sen sitivity of mammography. BI-RADS CATEGORY: (1) - 1 RECOMMENDATION: (ANNUAL) - Recommend routine annual screening mammography. 20221004 1 year screening LATERALITY: (B)
== END 2021-09-28 07:46 | disposition home or self-care (01) ==
LOC: DI.S 07:45
PROVIDERS: ATTEND Nurse Practitioner Family
DX: Z12.31 Encounter for screening mammogram for malignant neoplasm of breast (principal)

== ENCOUNTER 2021-11-25 09:13 | Outpatient (CLI) | payer MEDICARE ==
[2021-11-25] MEDS ORDERED: ALBUTEROL 1 PUFF INH STA (10:45)
== END 2021-11-25 09:14 | disposition home or self-care (01) ==
LOC: RT 09:13
PROVIDERS: ATTEND Nurse Practitioner Family
DX: J44.9 Chronic obstructive pulmonary disease, unspecified (principal)
CPT/HCPCS: 94060

== ENCOUNTER 2022-04-16 12:49 | Outpatient (CLI) | payer MEDICARE | END 2022-04-16 12:50 | disposition critical access hospital (66) | LOC: EMS 12:49 | DX: R55 Syncope and collapse (principal); I10 Essential (primary) hypertension; R42 Dizziness and giddiness; R20.2 Paresthesia of skin | CPT/HCPCS: A0425; A0429 ==

== ENCOUNTER 2022-04-16 13:19 | Emergency (ER) | payer MEDICARE ==
[2022-04-16] MEDS ORDERED: lisinopriL 5 MG TABLET PO STA (14:02)
--- NOTE | 2022-04-16 14:02 | ED Physician Documentation ---
History of Present Illness - Stated complaint Stated Complaint: NEAR SYNCOPAL EPISODE - Chief complaint Chief Complaint: Neuro - Additonal information Additional information: 81-year-old female presents emergency department for evaluation of near syncope. She reports that she was eating lunch with a bunch of her friends when she began to feel suddenly lightheaded, she began to feel like her vision was going black and she felt a sudden rushing in her ears. She was assisted to the ground and did not fully lose consciousness. She states that over the last year this is her fourth episode though they have never previously been with the symptom of a rushing in her ears. She was seen here in early December for similar. 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 She has been advised to obtain physical therapy for her episodic vertigo. She is being followed by an ENT. She denies chest pain or shortness of air. She is not having chest pain or shortness of air at this time. She is modestly hypertensive. She admits to not taking her losartan today. Review of Systems Constitutional: denies: Fever, Chills Eyes: reports: Reviewed and negative Throat: reports: Reviewed and negative Cardiac: reports: Reviewed and negative Respiratory: reports: Reviewed and negative GI: reports: Reviewed and negative : denies: Dysuria, Frequency, Hesitancy Skin: denies: Rash, Lesions Musculoskeletal: reports: Reviewed and negative Neurologic: reports: Near syncope. 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 HEENT: Cataracts - Present Medications Home Medications: Ambulatory Orders Medication Instructions Recorded Confirmed Levothyroxine [Synthroid] 125 mcg PO QDAC 11/15/12 12/18/21 Cetirizine [ZyrTEC] 10 mg PO DAILY #15 tablet 12/18/21 dexAMETHasone [Decadron] 4 mg PO DAILY #5 tablet 12/18/21 Losartan Potassium 25 mg PO DAILY #30 tablet 04/16/22 - Allergies Allergies/Adverse Reactions: Allergies Allergy/AdvReac Type Severity Reaction Status Date / Time No Known Drug Allergies Allergy Verified 12/18/21 11:08 - Social History Does the pt smoke?: Yes Smoking Status: Current every day smoker Does the pt drink ETOH?: No Does the pt have substance abuse?: No - Immunizations Immunizations are current?: Yes Immunizations: TDAP >10years/unknown - POLST Patient has POLST: No PD ED PE NORMAL - General General: Alert and oriented X 3, No acute distress, Well developed/nourished - HEENT HEENT: Atraumatic, Moist mucous membranes - Neck Neck: Supple, no meningeal sign, No adenopathy - Cardiac Cardiac: RRR, No murmur, No gallop - Respiratory Respiratory: No respiratory distress, Clear bilaterally - Abdomen Abdomen: Normal bowel sounds, Soft - Back Back: No CVA TTP, No spinal TTP - Derm Derm: Normal color, Warm and dry, No rash - Extremities Extremities: No deformity, No tenderness to palpate, Normal ROM s pain, No edema - Neuro 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, 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 Eye Opening: Spontaneous Motor: Obeys Commands Verbal: Oriented GCS Score: 15 Results - Vitals Vitals: Vital Signs - 24 hr 04/16/22 04/16/22 04/16/22 13:24 14:27 15:29 Temperature 36.3 C L Heart Rate 65 67 Heart Rate [ 68 Sitting] Heart Rate [ 71 Standing] Heart Rate [ 62 Supine] Respiratory 14 16 Rate Blood Pressure 187/96 H 185/81 H Blood Pressure 191/93 H [Sitting] Blood Pressure 192/98 H [Standing] Blood Pressure 177/86 H [Supine] O2 Saturation 98 Oxygen O2 Source Room air - EKG (time done) 1401 Rate: Rate (enter#) (61) Rhythm: NSR [place]: LAD Intervals: Normal TX, Prolonged QT QRS: Normal Compare to prior EKG: Old EKG unavailable Computer interpretation: Agree with computer - Labs Labs: Laboratory Tests 04/16/22 04/16/22 04/16/22 14:00 14:00 14:00 WBC 6.8 RBC 4.79 Hgb 14.5 Hct 43.8 MCV 91.4 MCH 30.3 MCHC 33.1 RDW 13.4 Plt Count 151 MPV 11.8 H Neut # (Auto) 3.9 Lymph # (Auto) 2.3 [place] # (Auto) 0.4 Eos # (Auto) 0.1 Baso # (Auto) 0.1 Absolute Nucleated RBC 0.00 Nucleated RBC % 0.0 Sodium 142 Potassium 3.7 Chloride 108 Carbon Dioxide 26 Anion Gap 8.0 BUN 18 Creatinine 0.8 Estimated GFR (MDRD) 69 L Glucose 90 Calcium 9.3 Total Bilirubin 0.3 AST 16 ALT 14 Alkaline Phosphatase 54 Troponin I High Sens 11.6 B-Natriuretic Peptide Total Protein 7.0 Albumin 4.1 Globulin 2.9 Albumin/Globulin Ratio 1.4 Lipase 28 04/16/22 14:00 WBC RBC Hgb Hct MCV MCH MCHC RDW Plt Count MPV Neut # (Auto) Lymph # (Auto) [place] # (Auto) Eos # (Auto) Baso # (Auto) Absolute Nucleated RBC Nucleated RBC % Sodium Potassium Chloride Carbon Dioxide Anion Gap BUN Creatinine Estimated GFR (MDRD) Glucose Calcium Total Bilirubin AST ALT Alkaline Phosphatase Troponin I High Sens B-Natriuretic Peptide 39 Total Protein Albumin Globulin Albumin/Globulin Ratio Lipase - Rads (name of study) cxr Radiology: Final report received (No acute cardiopulmonary findings) CT head Radiology: Final report received (Atrophy and chronic ischemic changes without acute hemorrhage or mass-effect) PD MEDICAL DECISION MAKING - ED course Complexity details: reviewed results, re-evaluated patient, considered differential, d/w patient ED course: 81-year-old female presents emergency department for evaluation of a near syncopal episode. This is the fourth episode over the last year. She was simply eating lunch began to feel lightheaded had a rushing sensation in her chest and a muffled hearing in both of her ears. She reports that she was recently diagnosed with right ear vestibular dysfunction. Her ENT is making a referral for her for vestibular rehabilitation. She denies chest pain or shortness of air. Her screening EKG was nonischemic. CBC electrolytes and troponin were all without acute worrisome abnormalities. A CT of the head did not show any obvious focal findings. Her orthostatics here in the emergency department were unremarkable. I discussed with the patient that the cause of the near syncope could have been attributed to her vestibular dysfunction. She is encouraged to continue follow- up with ENT for her vestibular rehab. I am also encouraging her to follow-up with primary care provider to obtain referral for a Holter monitor and outpatient echocardiogram. Emergent return precautions were discussed for worsening symptoms and or fainting/stroke symptoms. Departure - Departure Disposition: Home, Self Care Clinical Impression: Near syncope, Elevated blood pressure reading Condition: Stable Record reviewed to determine appropriate education?: Yes Prescriptions: Losartan Potassium 25 mg PO DAILY #30 tablet Comments: Tiffany zazueta are seen today in the emergency department for near syncope. You had a rushing sensation in your chest and in your ears. You have also recently been diagnosed with right ear vestibular dysfunction. Here in the emergency department your head CT was normal. Your EKG and labs were all essentially normal. I suspect that the cause of your symptoms today may have been from vestibular disturbance or coming from the inner ear. It is important that you continue to follow-up with the ENT doctors for the referral for vestibular rehabilitation. However it is very important that you also discuss with your primary doctor the need for a Holter monitor. This is a patch that you would wear for a few weeks that can monitor your heart rate and heart rhythms throughout the day and when you are having symptoms we can determine if there is any abnormal arrhythmia contributing to your near fainting. If at any point you develop slurred speech, have facial droop, sudden weakness in your arms or legs you should return immediately to the ER for a second evaluation
[2022-04-16 14:08] LABS: BASOPHILS # (AUTO) 0.1 10^3/uL (0.0-0.1); BASOPHILS % (AUTO) 1.3 %; EOSINOPHILS # (AUTO) 0.1 10^3/uL (0.0-0.7); EOSINOPHILS % (AUTO) 1.9 %; HCT - HEMATOCRIT 43.8 % (37.0-47.0); HGB - HEMOGLOBIN 14.5 g/dL (12.0-16.0); LYMPHOCYTES # (AUTO) 2.3 10^3/uL (1.5-3.5); LYMPHOCYTES % (AUTO) 33.4 %; MEAN CORPUSCULAR HEMOGLOBIN 30.3 pg (27.0-31.0); MEAN CORPUSCULAR HGB CONC 33.1 g/dL (32.0-36.0); MEAN CORPUSCULAR VOLUME 91.4 fL (81.0-99.0); MEAN PLATELET VOLUME 11.8 fL (7.9-10.8); MONOCYTES # (AUTO) 0.4 10^3/uL (0.0-1.0); MONOCYTES % (AUTO) 5.9 %; NEUTROPHILS # (AUTO) 3.9 10^3/uL (1.5-6.6); NEUTROPHILS % (AUTO) 57.4 %; PLT - PLATELET COUNT 151 10^3/uL (130-450); RED BLOOD COUNT 4.79 10^6/uL (4.20-5.40); RED CELL DISTRIBUTION WIDTH 13.4 % (12.0-15.0); WHITE BLOOD COUNT 6.8 x10^3/uL (4.8-10.8)
--- NOTE | 2022-04-16 14:26 | XRAY Report ---
PROCEDURE: Chest 1 View X-Ray INDICATIONS: Chest Pain TECHNIQUE: One view of the chest was acquired. COMPARISON: None FINDINGS: Surgical changes and devices: None. Lungs and pleura: There is hyperinflation and chronic interstitial changes without focal infiltrate, pneumothorax or pleural effusion. Mediastinum: Mediastinal contours appear normal. Heart size is normal. Bones and chest wall: No suspicious bony lesions. Overlying soft tissues appear unremarkable. IMPRESSION: No acute cardiopulmonary findings Reviewed by: Thomas Rosado MD on 04/16/2022 1:25 PM AKDT Approved by: Thomas Rosado MD on 04/16/2022 1:25 PM AKDT Station ID: [id number]
[2022-04-16 14:31] LABS: ALBUMIN 4.1 g/dL (3.2-5.5); ALBUMIN/GLOBULIN RATIO 1.4 (1.0-2.2); BILIRUBIN,TOTAL 0.3 mg/dL (0.2-1.0); CALCIUM 9.3 mg/dL (8.5-10.3); CREATININE 0.8 mg/dL (0.4-1.0); POTASSIUM 3.7 mmol/L (3.5-5.0)
[2022-04-16 15:34] VITALS: BP 185/81
--- NOTE | 2022-04-16 15:45 | CT Report ---
PROCEDURE: CT brain without contrast INDICATIONS: near syncope TECHNIQUE: Noncontrast 5 mm thick angled axial sections acquired from the foramen magnum to the vertex. For rad iation dose reduction, the following was used: automated exposure control, adjustment of mA and/or k V according to patient size. COMPARISON: None. FINDINGS: Image quality: Excellent. CSF spaces: Basal cisterns are patent. No extra-axial fluid collections. Ventricles are normal in size and shape. Brain: No midline shift. No intracranial masses or hemorrhage. Reyna-white matter interface is norm al. Moderate atrophy and multifocal white matter chronic ischemic change noted. Atherosclerotic vascular calcification noted in the cavernous segments of both internal carotid arteries as well as the intrad ural vertebral arteries. Skull and face: Calvarium and visualized facial bones are intact, without suspicious lesions. Sinuses: Visualized sinuses and mastoids are clear. IMPRESSION: Atrophy and chronic ischemic change without acute hemorrhage or mass effect Reviewed by: Thomas Rosado MD on 04/16/2022 2:43 PM AKDT Approved by: Thomas Rosado MD on 04/16/2022 2:43 PM AKDT Station ID: [id number]
[2022-04-17] MEDS ORDERED: LOSARTAN 50 MG TABLET PO SCH (09:00)
== END 2022-04-16 16:19 | disposition home or self-care (01) ==
LOC: EDUNIT# → ED 13:19
DX: R55 Syncope and collapse (principal); I10 Essential (primary) hypertension; F17.200 Nicotine dependence, unspecified, uncomplicated
CPT/HCPCS: 36415; 70450; 71045; 80053; 83690; 83880; 84484; 85025; 93005; 99284; A9270

== ENCOUNTER 2022-06-04 12:36 | Emergency (ER) | payer MEDICARE ==
--- OUTSIDE RECORDS SUMMARY | 2022-06-04 13:14 | EXTERNAL MEDICAL SUMMARY RPT | Continuity of Care Document ---
:1940 Author Organization [facility] Address [address] [place] [address] Phone Care Team Providers Name Role Phone Unavailable Unavailable Unavailable Fox Shaikh Pa-C Unavailable Unavailable Allergies and Intolerances date description facility type (no date) No Known Drug Allergies [facility] (unkn own) Encounters No information. Functional Status No information. Immunizations No information. Medications date description facility +0000 CALCIUM CARBONATE-VITAMIN D [facility] [id number] CALCIUM CARBONATE-VITAMIN D [facility] [id number] CALCIUM CARBONATE-VITAMIN D [facility] Problems No information. Procedures date description facility [id number] Visit Code Hold [facility] Pep Results/Labs test date author facility value unit interpret ation Result panel 1 (unknown) (no date) (unknown) (unknown) (no value) (units (un known) unknown) (unknown) (no date) (unknown) (unknown) 04/20/22 (units (unkn own) unknown) (unknown) (no date) (unknown) (unknown) [address]units (unk nown) [address] unknown) (unknown) (no date) (unknown) (unknown) [id number] (units (unkn own) unknown) (unknown) (no date) (unknown) (unknown) Accession (units (unk nown) Number: unknown) [id number] (unknown) (no date) (unknown) (unknown) Age/Sex: 81 / (units (unknown) F Date of unknown) Service: (unknown) (no date) (unknown) (unknown) [place] (units (unknown) [id number] unknown) (unknown) (no date) (unknown) (unknown) Approved by: (units ( unknown) joshua Valdez M.D. on 04/20/2022 at 16:39 (unknown) (no date) (unknown) (unknown) Bones and (units (unk nown) chest wall: No unknown) suspicious bony lesions. Overlying soft tissues (unknown) (no date) (unknown) (unknown) COMPARISON: (units (u nknown) None. unknown) (unknown) (no date) (unknown) (unknown) : (units (unkn own) 1940 unknown) Acct:[id number] (unknown) (no date) (unknown) (unknown) Dictated by: (units ( unknown) Zulema Oquendo unknownPipe Garcia on 04/20/2022 at 16:39 (unknown) (no date) (unknown) (unknown) FINDINGS: (units (unk nown) unknown) (unknown) (no date) (unknown) (unknown) IMPRESSION: No (units (unknown) acute pulmonary unknown) process. (unknown) (no date) (unknown) (unknown) INDICATIONS: (units ( unknown) chest pain unknown) (unknown) (no date) (unknown) (unknown) [facility] (unknown) (no date) (unknown) (unknown) Loc: ED (units (unkn own) unknown) (unknown) (no date) (unknown) (unknown) Lungs and (units (unk nown) pleura: Lungs unknown) are clear. No pleural effusions or pneumothorax. (unknown) (no date) (unknown) (unknown) Mediastinum: (units ( unknown) Mediastinal unknown) contours appear normal. Heart size is enlarged. (unknown) (no date) (unknown) (unknown) Ordering (units (unkn own) Provider: unknown) Jurgen Samuels MD (unknown) (no date) (unknown) (unknown) PROCEDURE: XR (units (unknown) CHEST 1V unknown) (unknown) (no date) (unknown) (unknown) Patient: (units (unkn own) Tiffany Alfaro unknown) MR#: [id number] (unknown) (no date) (unknown) (unknown) Procedure: XR (units (unknown) chest 1V unknown) (unknown) (no date) (unknown) (unknown) Signed (units (unkn own) unknown) (unknown) (no date) (unknown) (unknown) Surgical (units (unkn own) changes and unknown) devices: None. (unknown) (no date) (unknown) (unknown) TECHNIQUE: One (units (unknown) view of the unknown) chest was acquired. (unknown) (no date) (unknown) (unknown) XRay Report (units (u nknown) unknown) (unknown) (no date) (unknown) (unknown) appear (units (unkn own) unknown) (unknown) (no date) (unknown) (unknown) unremarkable. (units (unknown) unknown) Result panel 2 (unknown) (no date) (unknown) (unknown) 1.1 % (unkn own) (unknown) (no date) (unknown) (unknown) 1.5 % (unkn own) (unknown) (no date) (unknown) (unknown) 100 /ul (unkn own) (unknown) (no date) (unknown) (unknown) 100 /ul (unkn own) (unknown) (no date) (unknown) (unknown) 14.3 % (unkn own) (unknown) (no date) (unknown) (unknown) 15.2 g/dl (unkn own) (unknown) (no date) (unknown) (unknown) 169 x10 3/ul (unkn own) (unknown) (no date) (unknown) (unknown) 30.0 pg (unkn own) (unknown) (no date) (unknown) (unknown) 3100 /ul (unkn own) (unknown) (no date) (unknown) (unknown) 33.3 % (unkn own) (unknown) (no date) (unknown) (unknown) 33.4 % (unkn own) (unknown) (no date) (unknown) (unknown) 45.6 % (unkn own) (unknown) (no date) (unknown) (unknown) 5.08 x10 6/ul (unkn own) (unknown) (no date) (unknown) (unknown) 5.5 % (unkn own) (unknown) (no date) (unknown) (unknown) 500 /ul (unkn own) (unknown) (no date) (unknown) (unknown) 5400 /ul (unkn own) (unknown) (no date) (unknown) (unknown) 58.6 % (unkn own) (unknown) (no date) (unknown) (unknown) 89.7 fl (unkn own) (unknown) (no date) (unknown) (unknown) 9.3 x10 3/ul (unkn own) Result panel 3 (unknown) (no date) (unknown) (unknown) 1.1 (units unknown) (unknown) (unknown) (no date) (unknown) (unknown) 12.2 seconds (unkn own) (unknown) (no date) (unknown) (unknown) 28 seconds (unkn own) (unknown) (no date) (unknown) (unknown) 28 seconds (unkn own) Result panel 4 (unknown) (no (unknown) (unknown) (no value) (units (unk nown) date) unknown) (unknown) (no (unknown) (unknown) 04/20/22 16:18 (units (unknown) date) unknown) (unknown) (no (unknown) (unknown) 04/20/22 16:22 (units (unknown) date) unknown) (unknown) (no (unknown) (unknown) 04/20/22 (units (unkno wn) date) Range/Units unknown) (unknown) (no (unknown) (unknown) 04/20/22 (units (unkno wn) date) unknown) (unknown) (no (unknown) (unknown) 16:15 04/20/22 (units (unknown) date) unknown) (unknown) (no (unknown) (unknown) 16:22 (units (unkno wn) date) unknown) (unknown) (no (unknown) (unknown) 16:43 (units (unkno wn) date) unknown) (unknown) (no (unknown) (unknown) 4900 (units (unkno wn) date) unknown) (unknown) (no (unknown) (unknown) Age/Sex: 81 / F (units (unknown) date) unknown) (unknown) (no (unknown) (unknown) Allergies (units (unkn own) date) unknown) (unknown) (no (unknown) (unknown) Allergy/AdvReac (units (unknown) date) Type Severity unknown) Reaction Status Date / Time (unknown) (no (unknown) (unknown) Baso # (Auto) (units ( unknown) date) 100 (0-100) /uL unknown) (unknown) (no (unknown) (unknown) Baso % (Auto) (units ( unknown) date) 1.5 (0-2) % unknown) (unknown) (no (unknown) (unknown) Blood Pressure (units (unknown) date) 183/103 H unknown) 04/20/22 16:15 (unknown) (no (unknown) (unknown) Blood Pressure (units (unknown) date) 183/103 H 208/101 unknown) H (unknown) (no (unknown) (unknown) Chief Complaint: (units (unknown) date) Dizziness unknown) (unknown) (no (unknown) (unknown) Complete Blood (units (unknown) date) Count AUTO DIFF unknown) Stat (unknown) (no (unknown) (unknown) Comprehensive (units ( unknown) date) Metabolic Panel unknown) Stat (unknown) (no (unknown) (unknown) Course (units (unkno wn) date) unknown) (unknown) (no (unknown) (unknown) : 1940 (units (unknown) date) Acct:[id number] unknown) (unknown) (no (unknown) (unknown) Date of Service: (units (unknown) date) 04/20/22 unknown) (unknown) (no (unknown) (unknown) Departure (units (unkn own) date) unknown) (unknown) (no (unknown) (unknown) Discharge Plan (units (unknown) date) unknown) (unknown) (no (unknown) (unknown) ED Orders (units (unkn own) date) unknown) (unknown) (no (unknown) (unknown) EKG-12 Lead Stat (units (unknown) date) unknown) (unknown) (no (unknown) (unknown) ER Physician: (units ( unknown) date) Joseph Samuels unknown) (unknown) (no (unknown) (unknown) Emergency Report (units (unknown) date) unknown) (unknown) (no (unknown) (unknown) Eos # (Auto) 100 (units (unknown) date) (0-450) /uL unknown) (unknown) (no (unknown) (unknown) Eos % (Auto) 1.1 (units (unknown) date) L (2-4) % unknown) (unknown) (no (unknown) (unknown) Exam (units (unkno wn) date) unknown) (unknown) (no (unknown) (unknown) General (units (unkno wn) date) unknown) (unknown) (no (unknown) (unknown) HPI - Syncope (units ( unknown) date) unknown) (unknown) (no (unknown) (unknown) Hct 45.6 (36-46) (units (unknown) date) % unknown) (unknown) (no (unknown) (unknown) Hgb 15.2 (units (unkno wn) date) (12.0-16.0) g/dL unknown) (unknown) (no (unknown) (unknown) Initial Vital (units ( unknown) date) Signs unknown) (unknown) (no (unknown) (unknown) Initial Vital (units ( unknown) date) Signs: unknown) (unknown) (no (unknown) (unknown) [facility] (units (unknown) date) [address] unknown) [place] [address] (unknown) (no (unknown) (unknown) Lab Data (units (unkno wn) date) unknown) (unknown) (no (unknown) (unknown) Lab Results (units (un known) date) unknown) (unknown) (no (unknown) (unknown) Labs: (units (unkno wn) date) unknown) (unknown) (no (unknown) (unknown) Limitations: no (units (unknown) date) limitations unknown) (unknown) (no (unknown) (unknown) Lipase Stat (units (un known) date) unknown) (unknown) (no (unknown) (unknown) Lymph # (Auto) (units (unknown) date) 3100 (6225-9674) unknown) /uL (unknown) (no (unknown) (unknown) Lymph % (Auto) (units (unknown) date) 33.3 (25-40) % unknown) (unknown) (no (unknown) (unknown) MCH 30.0 (26-34) (units (unknown) date) PG unknown) (unknown) (no (unknown) (unknown) MCHC 33.4 (units (unkn own) date) (30-36) % unknown) (unknown) (no (unknown) (unknown) MCV 89.7 (units (unkno wn) date) (80-100) fL unknown) (unknown) (no (unknown) (unknown) MDM - Syncope (units ( unknown) date) unknown) (unknown) (no (unknown) (unknown) Magnesium Stat (units (unknown) date) unknown) (unknown) (no (unknown) (unknown) Mode of arrival: (units (unknown) date) Ambulatory unknown) (unknown) (no (unknown) (unknown) [place] # (Auto) (units ( unknown) date) 500 (0-900) /uL unknown) (unknown) (no (unknown) (unknown) [place] % (Auto) (units ( unknown) date) 5.5 (3-14) % unknown) (unknown) (no (unknown) (unknown) Neut # (Auto) (units ( unknown) date) 5400 (0492-1021) unknown) /uL (unknown) (no (unknown) (unknown) Neut % (Auto) (units ( unknown) date) 58.6 (50-75) % unknown) (unknown) (no (unknown) (unknown) No Known Drug (units ( unknown) date) Allergies Allergy unknown) Verified 04/20/22 16:15 (unknown) (no (unknown) (unknown) Ordered: (units (unkno wn) date) unknown) (unknown) (no (unknown) (unknown) Orders (units (unkno wn) date) unknown) (unknown) (no (unknown) (unknown) Oxygen Delivery (units (unknown) date) Method 04/20/22 unknown) 16:15 (unknown) (no (unknown) (unknown) Oxygen Delivery (units (unknown) date) Method Room Air unknown) Room Air (unknown) (no (unknown) (unknown) Partial (units (unkno wn) date) Thromboplastin unknown) Time Stat (unknown) (no (unknown) (unknown) Patient History (units (unknown) date) unknown) (unknown) (no (unknown) (unknown) Patient: (units (unkno wn) date) Tiffany Alfaro MR#: unknown) [id number] (unknown) (no (unknown) (unknown) Plt Count 169 (units ( unknown) date) (150-400) X103/uL unknown) (unknown) (no (unknown) (unknown) Prothrombin Time (units (unknown) date) INR Stat unknown) (unknown) (no (unknown) (unknown) Pulse Oximetry (units (unknown) date) 97 04/20/22 16:15 unknown) (unknown) (no (unknown) (unknown) Pulse Oximetry (units (unknown) date) 97 99 unknown) (unknown) (no (unknown) (unknown) Pulse Rate 90 (units ( unknown) date) 04/20/22 16:15 unknown) (unknown) (no (unknown) (unknown) Pulse Rate 90 78 (units (unknown) date) unknown) (unknown) (no (unknown) (unknown) RBC 5.08 (units (unkno wn) date) (4.0-5.2) X106/uL unknown) (unknown) (no (unknown) (unknown) RDW 14.3 (units (unkno wn) date) (11.6-14.8) % unknown) (unknown) (no (unknown) (unknown) Referrals: (units (unk nown) date) unknown) (unknown) (no (unknown) (unknown) Related Data (units (u nknown) date) unknown) (unknown) (no (unknown) (unknown) Respiratory Rate (units (unknown) date) 14 04/20/22 16:15 unknown) (unknown) (no (unknown) (unknown) Respiratory Rate (units (unknown) date) 14 22 unknown) (unknown) (no (unknown) (unknown) Result diagrams: (units (unknown) date) unknown) (unknown) (no (unknown) (unknown) Signed By: (units (unk nown) date) unknown) (unknown) (no (unknown) (unknown) Smoking Status: (units (unknown) date) Current every day unknown) smoker (unknown) (no (unknown) (unknown) Social History (units (unknown) date) unknown) (unknown) (no (unknown) (unknown) Source: patient (units (unknown) date) unknown) (unknown) (no (unknown) (unknown) Stated (units (unkno wn) date) Complaint: unknown) cardiac issues (unknown) (no (unknown) (unknown) Substance Use (units ( unknown) date) Type: does not unknown) use (unknown) (no (unknown) (unknown) Temperature 97.1 (units (unknown) date) F L 04/20/22 unknown) 16:15 (unknown) (no (unknown) (unknown) Temperature 97.1 (units (unknown) date) F L unknown) (unknown) (no (unknown) (unknown) Time Seen by (units (u nknown) date) Provider: unknown) 04/20/22 16:48 (unknown) (no (unknown) (unknown) Troponin + CK (units ( unknown) date) Cardiac Panel unknown) Stat (unknown) (no (unknown) (unknown) Vital Signs - 8 (units (unknown) date) hr unknown) (unknown) (no (unknown) (unknown) Vital Signs (units (un known) date) unknown) (unknown) (no (unknown) (unknown) Vital signs: (units (u nknown) date) unknown) (unknown) (no (unknown) (unknown) WBC 9.3 (units (unkno wn) date) (4.5-11.0) unknown) X103/uL (unknown) (no (unknown) (unknown) XR chest 1V Stat (units (unknown) date) unknown) (unknown) (no (unknown) (unknown) Ligia Banerjee, (units (unknown) date) RN [Primary Care unknown) Provider] (unknown) (no (unknown) (unknown) [Embedded Image (units (unknown) date) Not Available] unknown) (unknown) (no (unknown) (unknown) alcohol intake (units (unknown) date) frequency: unknown) holidays/special occasions only Result panel 5 (unknown) (no (unknown) (unknown) (no value) (units (unk nown) date) unknown) (unknown) (no (unknown) (unknown) 04/20/22 16:18 (units (unknown) date) unknown) (unknown) (no (unknown) (unknown) 04/20/22 16:22 (units (unknown) date) unknown) (unknown) (no (unknown) (unknown) 04/20/22 (units (unkno wn) date) Range/Units unknown) (unknown) (no (unknown) (unknown) 04/20/22 (units (unkno wn) date) unknown) (unknown) (no (unknown) (unknown) 16:15 04/20/22 (units (unknown) date) unknown) (unknown) (no (unknown) (unknown) 16:22 (units (unkno wn) date) unknown) (unknown) (no (unknown) (unknown) 16:43 (units (unkno wn) date) unknown) (unknown) (no (unknown) (unknown) 4900 (units (unkno wn) date) unknown) (unknown) (no (unknown) (unknown) Age/Sex: 81 / F (units (unknown) date) unknown) (unknown) (no (unknown) (unknown) Allergies (units (unkn own) date) unknown) (unknown) (no (unknown) (unknown) Allergy/AdvReac (units (unknown) date) Type Severity unknown) Reaction Status Date / Time (unknown) (no (unknown) (unknown) Attestation: I (units (unknown) date) personally unknown) reviewed and interpreted this ECG as follows: (Sinus (unknown) (no (unknown) (unknown) Baso # (Auto) (units ( unknown) date) 100 (0-100) /uL unknown) (unknown) (no (unknown) (unknown) Baso % (Auto) (units ( unknown) date) 1.5 (0-2) % unknown) (unknown) (no (unknown) (unknown) Blood Pressure (units (unknown) date) 183/103 H unknown) 04/20/22 16:15 (unknown) (no (unknown) (unknown) Blood Pressure (units (unknown) date) 183/103 H 208/101 unknown) H (unknown) (no (unknown) (unknown) Chief Complaint: (units (unknown) date) Dizziness unknown) (unknown) (no (unknown) (unknown) Complete Blood (units (unknown) date) Count AUTO DIFF unknown) Stat (unknown) (no (unknown) (unknown) Comprehensive (units ( unknown) date) Metabolic Panel unknown) Stat (unknown) (no (unknown) (unknown) Course (units (unkno wn) date) unknown) (unknown) (no (unknown) (unknown) : 1940 (units (unknown) date) Acct:[id number] unknown) (unknown) (no (unknown) (unknown) Date of Service: (units (unknown) date) 04/20/22 unknown) (unknown) (no (unknown) (unknown) Departure (units (unkn own) date) unknown) (unknown) (no (unknown) (unknown) Discharge Plan (units (unknown) date) unknown) (unknown) (no (unknown) (unknown) ECG Data (units (unkno wn) date) unknown) (unknown) (no (unknown) (unknown) ED Orders (units (unkn own) date) unknown) (unknown) (no (unknown) (unknown) EKG-12 Lead Stat (units (unknown) date) unknown) (unknown) (no (unknown) (unknown) ER Physician: (units ( unknown) date) Joseph Samuels unknown) (unknown) (no (unknown) (unknown) Emergency Report (units (unknown) date) unknown) (unknown) (no (unknown) (unknown) Eos # (Auto) 100 (units (unknown) date) (0-450) /uL unknown) (unknown) (no (unknown) (unknown) Eos % (Auto) 1.1 (units (unknown) date) L (2-4) % unknown) (unknown) (no (unknown) (unknown) Exam (units (unkno wn) date) unknown) (unknown) (no (unknown) (unknown) General (units (unkno wn) date) unknown) (unknown) (no (unknown) (unknown) HPI - Syncope (units ( unknown) date) unknown) (unknown) (no (unknown) (unknown) HPI narrative: (units (unknown) date) unknown) (unknown) (no (unknown) (unknown) Hct 45.6 (36-46) (units (unknown) date) % unknown) (unknown) (no (unknown) (unknown) Hgb 15.2 (units (unkno wn) date) (12.0-16.0) g/dL unknown) (unknown) (no (unknown) (unknown) History of (units (unk nown) date) Present Illness unknown) (unknown) (no (unknown) (unknown) Initial Vital (units ( unknown) date) Signs unknown) (unknown) (no (unknown) (unknown) Initial Vital (units ( unknown) date) Signs: unknown) (unknown) (no (unknown) (unknown) [facility] (units (unknown) date) [address] unknown) [place] [address] (unknown) (no (unknown) (unknown) Lab Data (units (unkno wn) date) unknown) (unknown) (no (unknown) (unknown) Lab Results (units (un known) date) unknown) (unknown) (no (unknown) (unknown) Labs: (units (unkno wn) date) unknown) (unknown) (no (unknown) (unknown) Limitations: no (units (unknown) date) limitations unknown) (unknown) (no (unknown) (unknown) Lipase Stat (units (un known) date) unknown) (unknown) (no (unknown) (unknown) Lymph # (Auto) (units (unknown) date) 3100 (1651-5552) unknown) /uL (unknown) (no (unknown) (unknown) Lymph % (Auto) (units (unknown) date) 33.3 (25-40) % unknown) (unknown) (no (unknown) (unknown) MCH 30.0 (26-34) (units (unknown) date) PG unknown) (unknown) (no (unknown) (unknown) MCHC 33.4 (units (unkn own) date) (30-36) % unknown) (unknown) (no (unknown) (unknown) MCV 89.7 (units (unkno wn) date) (80-100) fL unknown) (unknown) (no (unknown) (unknown) MDM - Syncope (units ( unknown) date) unknown) (unknown) (no (unknown) (unknown) Magnesium Stat (units (unknown) date) unknown) (unknown) (no (unknown) (unknown) Mode of arrival: (units (unknown) date) Ambulatory unknown) (unknown) (no (unknown) (unknown) [place] # (Auto) (units ( unknown) date) 500 (0-900) /uL unknown) (unknown) (no (unknown) (unknown) [place] % (Auto) (units ( unknown) date) 5.5 (3-14) % unknown) (unknown) (no (unknown) (unknown) Neut # (Auto) (units ( unknown) date) 5400 (1148-8400) unknown) /uL (unknown) (no (unknown) (unknown) Neut % (Auto) (units ( unknown) date) 58.6 (50-75) % unknown) (unknown) (no (unknown) (unknown) No Known Drug (units ( unknown) date) Allergies Allergy unknown) Verified 04/20/22 16:15 (unknown) (no (unknown) (unknown) Ordered: (units (unkno wn) date) unknown) (unknown) (no (unknown) (unknown) Orders (units (unkno wn) date) unknown) (unknown) (no (unknown) (unknown) Oxygen Delivery (units (unknown) date) Method 04/20/22 unknown) 16:15 (unknown) (no (unknown) (unknown) Oxygen Delivery (units (unknown) date) Method Room Air unknown) Room Air (unknown) (no (unknown) (unknown) Partial (units (unkno wn) date) Thromboplastin unknown) Time Stat (unknown) (no (unknown) (unknown) Patient History (units (unknown) date) unknown) (unknown) (no (unknown) (unknown) Patient: (units (unkno wn) date) Tiffany Alfaro MR#: unknown) [id number] (unknown) (no (unknown) (unknown) Plt Count 169 (units ( unknown) date) (150-400) X103/uL unknown) (unknown) (no (unknown) (unknown) Prothrombin Time (units (unknown) date) INR Stat unknown) (unknown) (no (unknown) (unknown) Pulse Oximetry (units (unknown) date) 97 04/20/22 16:15 unknown) (unknown) (no (unknown) (unknown) Pulse Oximetry (units (unknown) date) 97 99 unknown) (unknown) (no (unknown) (unknown) Pulse Rate 90 (units ( unknown) date) 04/20/22 16:15 unknown) (unknown) (no (unknown) (unknown) Pulse Rate 90 78 (units (unknown) date) unknown) (unknown) (no (unknown) (unknown) RBC 5.08 (units (unkno wn) date) (4.0-5.2) X106/uL unknown) (unknown) (no (unknown) (unknown) RDW 14.3 (units (unkno wn) date) (11.6-14.8) % unknown) (unknown) (no (unknown) (unknown) Referrals: (units (unk nown) date) unknown) (unknown) (no (unknown) (unknown) Related Data (units (u nknown) date) unknown) (unknown) (no (unknown) (unknown) Respiratory Rate (units (unknown) date) 14 04/20/22 16:15 unknown) (unknown) (no (unknown) (unknown) Respiratory Rate (units (unknown) date) 14 22 unknown) (unknown) (no (unknown) (unknown) Result diagrams: (units (unknown) date) unknown) (unknown) (no (unknown) (unknown) Signed By: (units (unk nown) date) unknown) (unknown) (no (unknown) (unknown) Smoking Status: (units (unknown) date) Current every day unknown) smoker (unknown) (no (unknown) (unknown) Social History (units (unknown) date) unknown) (unknown) (no (unknown) (unknown) Source: patient (units (unknown) date) unknown) (unknown) (no (unknown) (unknown) Stated (units (unkno wn) date) Complaint: unknown) cardiac issues (unknown) (no (unknown) (unknown) Substance Use (units ( unknown) date) Type: does not unknown) use (unknown) (no (unknown) (unknown) Temperature 97.1 (units (unknown) date) F L 04/20/22 unknown) 16:15 (unknown) (no (unknown) (unknown) Temperature 97.1 (units (unknown) date) F L unknown) (unknown) (no (unknown) (unknown) The patient is (units (unknown) date) not feel wall for unknown) about 5 days. She complains of weakness. She (unknown) (no (unknown) (unknown) Time Seen by (units (u nknown) date) Provider: unknown) 04/20/22 16:48 (unknown) (no (unknown) (unknown) Troponin + CK (units ( unknown) date) Cardiac Panel unknown) Stat (unknown) (no (unknown) (unknown) Vital Signs - 8 (units (unknown) date) hr unknown) (unknown) (no (unknown) (unknown) Vital Signs (units (un known) date) unknown) (unknown) (no (unknown) (unknown) Vital signs: (units (u nknown) date) unknown) (unknown) (no (unknown) (unknown) WBC 9.3 (units (unkno wn) date) (4.5-11.0) unknown) X103/uL (unknown) (no (unknown) (unknown) XR chest 1V Stat (units (unknown) date) unknown) (unknown) (no (unknown) (unknown) Ligia Banerjee, (units (unknown) date) RN [Primary Care unknown) Provider] (unknown) (no (unknown) (unknown) [Embedded Image (units (unknown) date) Not Available] unknown) (unknown) (no (unknown) (unknown) alcohol intake (units (unknown) date) frequency: unknown) holidays/special occasions only (unknown) (no (unknown) (unknown) anterior IA. no (units (unknown) date) ectopy. No acute unknown) ST elevation. ) (unknown) (no (unknown) (unknown) bradycardia rate (units (unknown) date) 57 beats per unknown) minute. Left axis deviation. Possible old (unknown) (no (unknown) (unknown) experienced (units (un known) date) chest pain or unknown) back pain. She had an episode 5 days ago where she (unknown) (no (unknown) (unknown) felt like she (units ( unknown) date) would pass out. unknown) She had a similar event today. She was seen at a (unknown) (no (unknown) (unknown) has dyspnea with (units (unknown) date) exertion. She unknown) currently has left shoulder pain. She has not (unknown) (no (unknown) (unknown) nearby hospital, (units (unknown) date) cleared and sent unknown) home. She is referred here today by her PA. Result panel 6 (unknown) (no date) (unknown) (unknown) > 60 ml/min (unkn own) (unknown) (no date) (unknown) (unknown) > 60 ml/min (unkn own) (unknown) (no date) (unknown) (unknown) 0.5 mg/dl (unkn own) (unknown) (no date) (unknown) (unknown) 0.83 mg/dl (unkn own) (unknown) (no date) (unknown) (unknown) 1.3 (units (unkn own) unknown) (unknown) (no date) (unknown) (unknown) 105 mmol/l (unkn own) (unknown) (no date) (unknown) (unknown) 112 u/l (unkn own) (unknown) (no date) (unknown) (unknown) 12 iu/l (unkn own) (unknown) (no date) (unknown) (unknown) 140 mmol/l (unkn own) (unknown) (no date) (unknown) (unknown) 17 mg/dl (unkn own) (unknown) (no date) (unknown) (unknown) 2.0 mg/dl (unkn own) (unknown) (no date) (unknown) (unknown) 20.5 (units (unkn own) unknown) (unknown) (no date) (unknown) (unknown) 25 iu/l (unkn own) (unknown) (no date) (unknown) (unknown) 26 mmol/l (unkn own) (unknown) (no date) (unknown) (unknown) 29 u/l (unkn own) (unknown) (no date) (unknown) (unknown) 3.5 g/dl (unkn own) (unknown) (no date) (unknown) (unknown) 4.3 mmol/l (unkn own) (unknown) (no date) (unknown) (unknown) 4.6 g/dl (unkn own) (unknown) (no date) (unknown) (unknown) 68 u/l (unkn own) (unknown) (no date) (unknown) (unknown) 8.1 g/dl (unkn own) (unknown) (no date) (unknown) (unknown) 85 mg/dl (unkn own) (unknown) (no date) (unknown) (unknown) 85 mg/dl (unkn own) (unknown) (no date) (unknown) (unknown) 9.3 mg/dl (unkn own) (unknown) (no date) (unknown) (unknown) Test not % (unkn own) performed (unknown) (no date) (unknown) (unknown) Test not % (unkn own) performed (unknown) (no date) (unknown) (unknown) Test not ng/ml (unkn own) performed (unknown) (no date) (unknown) (unknown) Test not ng/ml (unkn own) performed Result panel 7 (unknown) (no date) (unknown) (unknown) > 60 ml/min (unkn own) (unknown) (no date) (unknown) (unknown) > 60 ml/min (unkn own) (unknown) (no date) (unknown) (unknown) < 0.012 ng/ml (unkn own) (unknown) (no date) (unknown) (unknown) < 0.012 ng/ml (unkn own) (unknown) (no date) (unknown) (unknown) 0.5 mg/dl (unkn own) (unknown) (no date) (unknown) (unknown) 0.83 mg/dl (unkn own) (unknown) (no date) (unknown) (unknown) 1.3 (units (unkn own) unknown) (unknown) (no date) (unknown) (unknown) 105 mmol/l (unkn own) (unknown) (no date) (unknown) (unknown) 112 u/l (unkn own) (unknown) (no date) (unknown) (unknown) 12 iu/l (unkn own) (unknown) (no date) (unknown) (unknown) 140 mmol/l (unkn own) (unknown) (no date) (unknown) (unknown) 17 mg/dl (unkn own) (unknown) (no date) (unknown) (unknown) 2.0 mg/dl (unkn own) (unknown) (no date) (unknown) (unknown) 20.5 (units (unkn own) unknown) (unknown) (no date) (unknown) (unknown) 25 iu/l (unkn own) (unknown) (no date) (unknown) (unknown) 26 mmol/l (unkn own) (unknown) (no date) (unknown) (unknown) 29 u/l (unkn own) (unknown) (no date) (unknown) (unknown) 3.5 g/dl (unkn own) (unknown) (no date) (unknown) (unknown) 4.3 mmol/l (unkn own) (unknown) (no date) (unknown) (unknown) 4.6 g/dl (unkn own) (unknown) (no date) (unknown) (unknown) 68 u/l (unkn own) (unknown) (no date) (unknown) (unknown) 728 ng/ml (unkn own) (unknown) (no date) (unknown) (unknown) 728 ng/ml (unkn own) (unknown) (no date) (unknown) (unknown) 8.1 g/dl (unkn own) (unknown) (no date) (unknown) (unknown) 85 mg/dl (unkn own) (unknown) (no date) (unknown) (unknown) 85 mg/dl (unkn own) (unknown) (no date) (unknown) (unknown) 9.3 mg/dl (unkn own) (unknown) (no date) (unknown) (unknown) Test not % (unkn own) performed (unknown) (no date) (unknown) (unknown) Test not % (unkn own) performed (unknown) (no date) (unknown) (unknown) Test not ng/ml (unkn own) performed (unknown) (no date) (unknown) (unknown) Test not ng/ml (unkn own) performed Result panel 8 (unknown) (no (unknown) (unknown) (no value) (units (unk nown) date) unknown) (unknown) (no (unknown) (unknown) 1. No acute (units (un known) date) pulmonary embolus. unknown) No acute abnormality is seen in the chest. (unknown) (no (unknown) (unknown) 04/20/22 (units (unkno wn) date) unknown) (unknown) (no (unknown) (unknown) [address] [place] [address] (units (unknown) date) unknown) (unknown) (no (unknown) (unknown) [id number] (units (unkno wn) date) unknown) (unknown) (no (unknown) (unknown) 2. 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 (unknown) (no (unknown) (unknown) Abdomen: (units (unkno wn) date) Visualized upper unknown) abdominal solid organs appear normal in the early (unknown) (no (unknown) (unknown) Accession Number: (units (unknown) date) [id number] unknown) (unknown) (no (unknown) (unknown) After the (units (unkn own) date) administration of unknown) intravenous contrast, 2 mm thick sections acquired (unknown) (no (unknown) (unknown) Age/Sex: 81 / F (units (unknown) date) Date of Service: unknown) (unknown) (no (unknown) (unknown) [place], [place] (units ( unknown) date) [id number] unknown) (unknown) (no (unknown) (unknown) Approved by: (units (u nknown) date) joshua Sawyer M.D. on 04/20/2022 at 18:00 (unknown) (no (unknown) (unknown) Bones and chest (units (unknown) date) wall: No unknown) suspicious bony lesion. Mild degenerative changes (unknown) (no (unknown) (unknown) COMPARISON: (units (un known) date) [facility], unknown) CR, XR CHEST 1V, 04/20/2022, 16:28. (unknown) (no (unknown) (unknown) CT Scan Report (units (unknown) date) unknown) (unknown) (no (unknown) (unknown) : 1940 (units (unknown) date) Acct:[id number] unknown) (unknown) (no (unknown) (unknown) Dictated by: (units (u nknown) date) joshua Sawyer M.D. on 04/20/2022 at 17:50 (unknown) (no (unknown) (unknown) FINDINGS: (units (unkn own) date) unknown) (unknown) (no (unknown) (unknown) Focal (units (unkno wn) date) unknown) (unknown) (no (unknown) (unknown) For radiation (units ( unknown) date) dose reduction, unknown) the following was used: automated exposure (unknown) (no (unknown) (unknown) IMPRESSION: (units (un known) date) unknown) (unknown) (no (unknown) (unknown) INDICATIONS: PE (units (unknown) date) study unknown) (unknown) (no (unknown) (unknown) Image quality: (units (unknown) date) Excellent. unknown) (unknown) (no (unknown) (unknown) [facility] (units (unknown) date) unknown) (unknown) (no (unknown) (unknown) Loc: ED (units (unkno wn) date) unknown) (unknown) (no (unknown) (unknown) Lungs and pleura: (units (unknown) date) Mild posterior unknown) dependent atelectasis in the lung bases. (unknown) (no (unknown) (unknown) Mediastinum: (units (u nknown) date) Heart size is unknown) normal, without pericardial effusion. No (unknown) (no (unknown) (unknown) Ordering (units (unkno wn) date) Provider: unknown) Joseph Samuels MD (unknown) (no (unknown) (unknown) PROCEDURE: CT (units ( unknown) date) ANGIO CHEST PE unknown) PROTOCOL (unknown) (no (unknown) (unknown) Patient: (units (unkno wn) date) LeighannTiffany rangel Juan Carlos MR#: unknown) [id number] (unknown) (no (unknown) (unknown) Procedure: CT (units ( unknown) date) angio chest PE unknown) protocol (unknown) (no (unknown) (unknown) Pulmonary (units (unkn own) date) arteries: unknown) Pulmonary arteries are normal in size, and demonstrate no (unknown) (no (unknown) (unknown) Signed (units (unkno wn) date) unknown) (unknown) (no (unknown) (unknown) TECHNIQUE: (units (unk nown) date) unknown) (unknown) (no (unknown) (unknown) adjustment of mA (units (unknown) date) and/or kV unknown) according to patient size. (unknown) (no (unknown) (unknown) aortic (units (unkno wn) date) unknown) (unknown) (no (unknown) (unknown) are seen in (units (un known) date) unknown) (unknown) (no (unknown) (unknown) arterial (units (unkno wn) date) unknown) (unknown) (no (unknown) (unknown) atherosclerotic (units (unknown) date) calcifications. unknown) Esophagus is normal in caliber, with a (unknown) (no (unknown) (unknown) centrilobular and (units (unknown) date) unknown) (unknown) (no (unknown) (unknown) control, (units (unkno wn) date) unknown) (unknown) (no (unknown) (unknown) from the (units (unkno wn) date) unknown) (unknown) (no (unknown) (unknown) hernia. (units (unkno wn) date) unknown) (unknown) (no (unknown) (unknown) hilar adenopathy. (units (unknown) date) Thoracic aorta is unknown) normal in caliber and enhancement. Mild (unknown) (no (unknown) (unknown) intensity (units (unkn own) date) unknown) (unknown) (no (unknown) (unknown) intraluminal (units (u nknown) date) filling defects to unknown) suggest central pulmonary embolism. (unknown) (no (unknown) (unknown) mediastinal or (units (unknown) date) unknown) (unknown) (no (unknown) (unknown) moderate hiatal (units (unknown) date) unknown) (unknown) (no (unknown) (unknown) or (units (unkno wn) date) unknown) (unknown) (no (unknown) (unknown) paraseptal (units (unk nown) date) emphysema. No unknown) acute pulmonary consolidation. No pleural effusions (unknown) (no (unknown) (unknown) phase of (units (unkno wn) date) enhancement. unknown) (unknown) (no (unknown) (unknown) pneumothorax. (units ( unknown) date) Central and unknown) peripheral airways are patent. (unknown) (no (unknown) (unknown) projection (MIP) (units (unknown) date) coronal and unknown) sagittal reformats were then acquired through the (unknown) (no (unknown) (unknown) pulmonary apices (units (unknown) date) to the posterior unknown) costophrenic angles. 3-dimensional maximum (unknown) (no (unknown) (unknown) scarring and (units (u nknown) date) bronchiectasis is unknown) seen in the lingula. Mild bilateral (unknown) (no (unknown) (unknown) the spine. (units (unk nown) date) Thyroid is unknown) diminutive. No axillary or supraclavicular adenopathy. (unknown) (no (unknown) (unknown) thorax. (units (unkno wn) date) unknown) Result panel 9 (unknown) (no (unknown) (unknown) (no value) (units (unk nown) date) unknown) (unknown) (no (unknown) (unknown) 04/20/22 04/20/22 (units (unknown) date) 04/20/22 unknown) Range/Units (unknown) (no (unknown) (unknown) 04/20/22 16:18 (units (unknown) date) unknown) (unknown) (no (unknown) (unknown) 04/20/22 16:20 (units (unknown) date) unknown) (unknown) (no (unknown) (unknown) 04/20/22 16:22 (units (unknown) date) unknown) (unknown) (no (unknown) (unknown) 04/20/22 17:08 (units (unknown) date) unknown) (unknown) (no (unknown) (unknown) 04/20/22 (units (unkno wn) date) Range/Units unknown) (unknown) (no (unknown) (unknown) 04/20/22 (units (unkno wn) date) unknown) (unknown) (no (unknown) (unknown) 16:15 04/20/22 (units (unknown) date) unknown) (unknown) (no (unknown) (unknown) 16:20 16:22 16:22 (units (unknown) date) unknown) (unknown) (no (unknown) (unknown) 16:22 (units (unkno wn) date) unknown) (unknown) (no (unknown) (unknown) 16:43 04/20/22 (units (unknown) date) unknown) (unknown) (no (unknown) (unknown) 17:15 (units (unkno wn) date) unknown) (unknown) (no (unknown) (unknown) 17:16 04/20/22 (units (unknown) date) unknown) (unknown) (no (unknown) (unknown) 17:35 (units (unkno wn) date) unknown) (unknown) (no (unknown) (unknown) 17:43 04/20/22 (units (unknown) date) unknown) (unknown) (no (unknown) (unknown) 18:00 (units (unkno wn) date) unknown) (unknown) (no (unknown) (unknown) 18:01 04/20/22 (units (unknown) date) unknown) (unknown) (no (unknown) (unknown) 18:01 (units (unkno wn) date) unknown) (unknown) (no (unknown) (unknown) 4900 (units (unkno wn) date) unknown) (unknown) (no (unknown) (unknown) ALT (<35) IU/L (units (unknown) date) unknown) (unknown) (no (unknown) (unknown) ALT 12 (<35) IU/L (units (unknown) date) unknown) (unknown) (no (unknown) (unknown) APTT (26-36) (units (u nknown) date) SECONDS unknown) (unknown) (no (unknown) (unknown) APTT 28 (26-36) (units (unknown) date) SECONDS unknown) (unknown) (no (unknown) (unknown) AST (14-36) IU/L (units (unknown) date) unknown) (unknown) (no (unknown) (unknown) AST 25 (14-36) (units (unknown) date) IU/L unknown) (unknown) (no (unknown) (unknown) Admit Date/Time: (units (unknown) date) 04/20/22 18:22 unknown) (unknown) (no (unknown) (unknown) Age/Sex: 81 / F (units (unknown) date) unknown) (unknown) (no (unknown) (unknown) Albumin (3.5-5.0) (units (unknown) date) g/dL unknown) (unknown) (no (unknown) (unknown) Albumin 4.6 (units (un known) date) (3.5-5.0) g/dL unknown) (unknown) (no (unknown) (unknown) Albumin/Globulin (units (unknown) date) Ratio (1.0-2.8) unknown) (unknown) (no (unknown) (unknown) Albumin/Globulin (units (unknown) date) Ratio 1.3 (1.0-2.8) unknown) (unknown) (no (unknown) (unknown) Alkaline (units (unkno wn) date) Phosphatase unknown) (38-126) U/L (unknown) (no (unknown) (unknown) Alkaline (units (unkno wn) date) Phosphatase 68 unknown) (38-126) U/L (unknown) (no (unknown) (unknown) Allergies (units (unkn own) date) unknown) (unknown) (no (unknown) (unknown) Allergy/AdvReac (units (unknown) date) Type Severity unknown) Reaction Status Date / Time (unknown) (no (unknown) (unknown) Appearance: (units (un known) date) grossly normal unknown) (unknown) (no (unknown) (unknown) Aspirin (Aspirin (units (unknown) date) 81 Mg Chew Tab) 324 unknown) mg PO NOW ONE (unknown) (no (unknown) (unknown) Attestation: I (units (unknown) date) personally reviewed unknown) and interpreted this ECG as follows: (Sinus (unknown) (no (unknown) (unknown) Auscultation: (units ( unknown) date) clear to unknown) auscultation bilaterally (unknown) (no (unknown) (unknown) BUN (7-17) mg/dL (units (unknown) date) unknown) (unknown) (no (unknown) (unknown) BUN 17 (7-17) (units ( unknown) date) mg/dL unknown) (unknown) (no (unknown) (unknown) BUN/Creatinine (units (unknown) date) Ratio (6-22) unknown) (unknown) (no (unknown) (unknown) BUN/Creatinine (units (unknown) date) Ratio 20.5 (6-22) unknown) (unknown) (no (unknown) (unknown) Back/Spine/Pelvis (units (unknown) date) unknown) (unknown) (no (unknown) (unknown) Back: normal to (units (unknown) date) inspection unknown) (unknown) (no (unknown) (unknown) Baso # (Auto) (units ( unknown) date) (0-100) /uL unknown) (unknown) (no (unknown) (unknown) Baso # (Auto) 100 (units (unknown) date) (0-100) /uL unknown) (unknown) (no (unknown) (unknown) Baso % (Auto) (units ( unknown) date) (0-2) % unknown) (unknown) (no (unknown) (unknown) Baso % (Auto) 1.5 (units (unknown) date) (0-2) % unknown) (unknown) (no (unknown) (unknown) Blood Pressure (units (unknown) date) 183/103 H 04/20/22 unknown) 16:15 (unknown) (no (unknown) (unknown) Blood Pressure (units (unknown) date) 183/103 H 208/101 H unknown) (unknown) (no (unknown) (unknown) Blood Pressure (units (unknown) date) 185/84 H unknown) (unknown) (no (unknown) (unknown) Blood Pressure (units (unknown) date) 193/97 H unknown) (unknown) (no (unknown) (unknown) Blood Pressure (units (unknown) date) 217/102 H unknown) (unknown) (no (unknown) (unknown) CK-MB (CK-2) Rel (units (unknown) date) Index TNP unknown) (unknown) (no (unknown) (unknown) CK-MB (CK-2) Rel (units (unknown) date) Index unknown) (unknown) (no (unknown) (unknown) CK-MB (CK-2) TNP (units (unknown) date) unknown) (unknown) (no (unknown) (unknown) CK-MB (CK-2) (units (u nknown) date) unknown) (unknown) (no (unknown) (unknown) CT angio chest PE (units (unknown) date) protocol Stat unknown) (unknown) (no (unknown) (unknown) Calcium (8.4-10.2) (units (unknown) date) mg/dL unknown) (unknown) (no (unknown) (unknown) Calcium 9.3 (units (un known) date) (8.4-10.2) mg/dL unknown) (unknown) (no (unknown) (unknown) Carbon Dioxide (units (unknown) date) (22-32) mmol/L unknown) (unknown) (no (unknown) (unknown) Carbon Dioxide 26 (units (unknown) date) (22-32) mmol/L unknown) (unknown) (no (unknown) (unknown) Cardio (units (unkno wn) date) unknown) (unknown) (no (unknown) (unknown) Cardiovascular (units (unknown) date) unknown) (unknown) (no (unknown) (unknown) Cardiovascular: (units (unknown) date) Reports as per HPI, unknown) Reports chest pain and Reports dyspnea on (unknown) (no (unknown) (unknown) Cataracts, (units (unk nown) date) bilateral unknown) (unknown) (no (unknown) (unknown) Chest (units (unkno wn) date) unknown) (unknown) (no (unknown) (unknown) Chest: normal (units ( unknown) date) palpation of entire unknown) chest wall (unknown) (no (unknown) (unknown) Chief Complaint: (units (unknown) date) Dizziness unknown) (unknown) (no (unknown) (unknown) Chloride (98-107) (units (unknown) date) mmol/L unknown) (unknown) (no (unknown) (unknown) Chloride 105 (units (u nknown) date) (98-107) mmol/L unknown) (unknown) (no (unknown) (unknown) Complete Blood (units (unknown) date) Count AUTO DIFF unknown) Stat (unknown) (no (unknown) (unknown) Comprehensive (units ( unknown) date) Metabolic Panel unknown) Stat (unknown) (no (unknown) (unknown) Const (units (unkno wn) date) unknown) (unknown) (no (unknown) (unknown) Constitutional (units (unknown) date) unknown) (unknown) (no (unknown) (unknown) Constitutional: (units (unknown) date) Denies anorexia, unknown) Denies body ache(s), Denies chills, Reports (unknown) (no (unknown) (unknown) Course (units (unkno wn) date) unknown) (unknown) (no (unknown) (unknown) Creatinine (units (unk nown) date) (0.52-1.04) mg/dL unknown) (unknown) (no (unknown) (unknown) Creatinine 0.83 (units (unknown) date) (0.52-1.04) mg/dL unknown) (unknown) (no (unknown) (unknown) D Dimer Stat (units (u nknown) date) unknown) (unknown) (no (unknown) (unknown) D-Dimer (<500) (units (unknown) date) ng/ml unknown) (unknown) (no (unknown) (unknown) D-Dimer 728 H (units ( unknown) date) (<500) ng/ml unknown) (unknown) (no (unknown) (unknown) : 1940 (units (unknown) date) Acct:[id number] unknown) (unknown) (no (unknown) (unknown) Date of Service: (units (unknown) date) 04/20/22 unknown) (unknown) (no (unknown) (unknown) Denies muscle (units ( unknown) date) cramps unknown) (unknown) (no (unknown) (unknown) Departure (units (unkn own) date) unknown) (unknown) (no (unknown) (unknown) Discharge Plan (units (unknown) date) unknown) (unknown) (no (unknown) (unknown) Discontinued (units (u nknown) date) Medications unknown) (unknown) (no (unknown) (unknown) Documented By: LETY (units (unknown) date) unknown) (unknown) (no (unknown) (unknown) ECG Data (units (unkno wn) date) unknown) (unknown) (no (unknown) (unknown) ED Orders (units (unkn own) date) unknown) (unknown) (no (unknown) (unknown) EKG-12 Lead Stat (units (unknown) date) unknown) (unknown) (no (unknown) (unknown) ENT (units (unkno wn) date) unknown) (unknown) (no (unknown) (unknown) ER Physician: (units ( unknown) date) Joseph Samuels MD unknown) (unknown) (no (unknown) (unknown) Ears, Nose, Mouth, (units (unknown) date) and Throat: Denies unknown) vertigo, Denies dizziness, Denies sinus (unknown) (no (unknown) (unknown) Emergency Report (units (unknown) date) unknown) (unknown) (no (unknown) (unknown) Endocrine (units (unkn own) date) unknown) (unknown) (no (unknown) (unknown) Endocrine: Reports (units (unknown) date) fatigue unknown) (unknown) (no (unknown) (unknown) Eos # (Auto) (units (u nknown) date) (0-450) /uL unknown) (unknown) (no (unknown) (unknown) Eos # (Auto) 100 (units (unknown) date) (0-450) /uL unknown) (unknown) (no (unknown) (unknown) Eos % (Auto) (2-4) (units (unknown) date) % unknown) (unknown) (no (unknown) (unknown) Eos % (Auto) 1.1 L (units (unknown) date) (2-4) % unknown) (unknown) (no (unknown) (unknown) Estimated GFR > 60 (units (unknown) date) (>60) mL/min unknown) (unknown) (no (unknown) (unknown) Estimated GFR (units ( unknown) date) (>60) mL/min unknown) (unknown) (no (unknown) (unknown) Exam (units (unkno wn) date) unknown) (unknown) (no (unknown) (unknown) Extrem (units (unkno wn) date) unknown) (unknown) (no (unknown) (unknown) Eyes (units (unkno wn) date) unknown) (unknown) (no (unknown) (unknown) Eyes: Denies (units (u nknown) date) blurry vision and unknown) Denies exophthalmos (unknown) (no (unknown) (unknown) Face and sinus: (units (unknown) date) normal facial exam unknown) (unknown) (no (unknown) (unknown) Family History (units (unknown) date) (Updated 04/20/22 @ unknown) 18:25 by Joseph Samuels MD) (unknown) (no (unknown) (unknown) GI (units (unkno wn) date) unknown) (unknown) (no (unknown) (unknown) Gastrointestinal (units (unknown) date) unknown) (unknown) (no (unknown) (unknown) Gastrointestinal: (units (unknown) date) Denies abdominal unknown) pain and Denies nausea (unknown) (no (unknown) (unknown) General (units (unkno wn) date) unknown) (unknown) (no (unknown) (unknown) General: Yes (units (u nknown) date) appearance normal, unknown) both eyes and all related structures (unknown) (no (unknown) (unknown) General: (units (unkno wn) date) cooperative, well unknown) developed, well groomed and anxious (unknown) (no (unknown) (unknown) General: no rashes (units (unknown) date) or lesions noted unknown) (unknown) (no (unknown) (unknown) General: normal to (units (unknown) date) inspection, full unknown) ROM, no pedal edema and no calf tenderness (unknown) (no (unknown) (unknown) General: patient (units (unknown) date) alert, patient unknown) awake, patient oriented x3 and no focal motor (unknown) (no (unknown) (unknown) Genitourinary (units ( unknown) date) unknown) (unknown) (no (unknown) (unknown) Genitourinary: (units (unknown) date) Denies dysuria unknown) (unknown) (no (unknown) (unknown) Globulin (1.7-4.1) (units (unknown) date) g/dL unknown) (unknown) (no (unknown) (unknown) Globulin 3.5 (units (u nknown) date) (1.7-4.1) g/dL unknown) (unknown) (no (unknown) (unknown) Glucose (80-110) (units (unknown) date) mg/dL unknown) (unknown) (no (unknown) (unknown) Glucose 85 (units (unk nown) date) (80-110) mg/dL unknown) (unknown) (no (unknown) (unknown) H/O: hysterectomy (units (unknown) date) unknown) (unknown) (no (unknown) (unknown) HENMT (units (unkno wn) date) unknown) (unknown) (no (unknown) (unknown) HPI - Syncope (units ( unknown) date) unknown) (unknown) (no (unknown) (unknown) HPI narrative: (units (unknown) date) unknown) (unknown) (no (unknown) (unknown) Hct (36-46) % (units ( unknown) date) unknown) (unknown) (no (unknown) (unknown) Hct 45.6 (36-46) % (units (unknown) date) unknown) (unknown) (no (unknown) (unknown) Head: (units (unkno wn) date) normocephalic and unknown) atraumatic (unknown) (no (unknown) (unknown) Heart Sounds: S1 (units (unknown) date) normal, S2 normal unknown) and no murmurs (unknown) (no (unknown) (unknown) Hematologic/Lympha (units (unknown) date) tic unknown) (unknown) (no (unknown) (unknown) Hgb (12.0-16.0) (units (unknown) date) g/dL unknown) (unknown) (no (unknown) (unknown) Hgb 15.2 (units (unkno wn) date) (12.0-16.0) g/dL unknown) (unknown) (no (unknown) (unknown) History of Present (units (unknown) date) Illness unknown) (unknown) (no (unknown) (unknown) Hypertension (units (u nknown) date) unknown) (unknown) (no (unknown) (unknown) Hypothyroidism (units (unknown) date) unknown) (unknown) (no (unknown) (unknown) INR (0.9-1.3) (units ( unknown) date) unknown) (unknown) (no (unknown) (unknown) INR 1.1 (0.9-1.3) (units (unknown) date) unknown) (unknown) (no (unknown) (unknown) Initial Vital (units ( unknown) date) Signs unknown) (unknown) (no (unknown) (unknown) Initial Vital (units ( unknown) date) Signs: unknown) (unknown) (no (unknown) (unknown) Inspection: normal (units (unknown) date) to inspection unknown) (unknown) (no (unknown) (unknown) Integumentary/Veronica (units (unknown) date) sts unknown) (unknown) (no (unknown) (unknown) [facility] (units (unknown) date) [address] unknown) [place] [address] (unknown) (no (unknown) (unknown) Lab Data (units (unkno wn) date) unknown) (unknown) (no (unknown) (unknown) Lab Results (units (un known) date) unknown) (unknown) (no (unknown) (unknown) Labs: (units (unkno wn) date) unknown) (unknown) (no (unknown) (unknown) Last Admin: (units (un known) date) 04/20/22 17:14 unknown) Dose: 150 mls/hr (unknown) (no (unknown) (unknown) Last Admin: (units (un known) date) 04/20/22 17:14 unknown) Dose: 324 mg (unknown) (no (unknown) (unknown) Limitations: no (units (unknown) date) limitations unknown) (unknown) (no (unknown) (unknown) Lipase (23-300) (units (unknown) date) U/L unknown) (unknown) (no (unknown) (unknown) Lipase 112 (units (unk nown) date) (23-300) U/L unknown) (unknown) (no (unknown) (unknown) Lipase Stat (units (un known) date) unknown) (unknown) (no (unknown) (unknown) Lymph # (Auto) (units (unknown) date) ([id number]) /uL unknown) (unknown) (no (unknown) (unknown) Lymph # (Auto) (units (unknown) date) 3100 ([id number]) unknown) /uL (unknown) (no (unknown) (unknown) Lymph % (Auto) (units (unknown) date) (25-40) % unknown) (unknown) (no (unknown) (unknown) Lymph % (Auto) (units (unknown) date) 33.3 (25-40) % unknown) (unknown) (no (unknown) (unknown) MCH (26-34) PG (units (unknown) date) unknown) (unknown) (no (unknown) (unknown) MCH 30.0 (26-34) (units (unknown) date) PG unknown) (unknown) (no (unknown) (unknown) MCHC (30-36) % (units (unknown) date) unknown) (unknown) (no (unknown) (unknown) MCHC 33.4 (30-36) (units (unknown) date) % unknown) (unknown) (no (unknown) (unknown) MCV (80-100) fL (units (unknown) date) unknown) (unknown) (no (unknown) (unknown) MCV 89.7 (80-100) (units (unknown) date) fL unknown) (unknown) (no (unknown) (unknown) MDM - Syncope (units ( unknown) date) unknown) (unknown) (no (unknown) (unknown) Magnesium (units (unkn own) date) (1.6-2.3) mg/dL unknown) (unknown) (no (unknown) (unknown) Magnesium 2.0 (units ( unknown) date) (1.6-2.3) mg/dL unknown) (unknown) (no (unknown) (unknown) Magnesium Stat (units (unknown) date) unknown) (unknown) (no (unknown) (unknown) Medical History (units (unknown) date) (Updated 04/20/22 @ unknown) 18:27 by Joseph Samuels MD) (unknown) (no (unknown) (unknown) Metoprolol (units (unk nown) date) Tartrate unknown) (Metoprolol Ir 25 Mg Tablet) 25 mg PO NOW ONE (unknown) (no (unknown) (unknown) Mode of arrival: (units (unknown) date) Ambulatory unknown) (unknown) (no (unknown) (unknown) [place] # (Auto) (units ( unknown) date) (0-900) /uL unknown) (unknown) (no (unknown) (unknown) [place] # (Auto) 500 (units (unknown) date) (0-900) /uL unknown) (unknown) (no (unknown) (unknown) [place] % (Auto) (units ( unknown) date) (3-14) % unknown) (unknown) (no (unknown) (unknown) [place] % (Auto) 5.5 (units (unknown) date) (3-14) % unknown) (unknown) (no (unknown) (unknown) Mouth: oral (units (un known) date) mucosae normal and unknown) moist mucous membranes (unknown) (no (unknown) (unknown) Musculoskeletal (units (unknown) date) unknown) (unknown) (no (unknown) (unknown) Musculoskeletal: (units (unknown) date) Denies arthralgias, unknown) Denies back pain, Denies myalgias and (unknown) (no (unknown) (unknown) Neck (units (unkno wn) date) unknown) (unknown) (no (unknown) (unknown) Neck: No JVD (units (u nknown) date) unknown) (unknown) (no (unknown) (unknown) Neuro (units (unkno wn) date) unknown) (unknown) (no (unknown) (unknown) Neurologic (units (unk nown) date) unknown) (unknown) (no (unknown) (unknown) Neurologic: Denies (units (unknown) date) vertigo, Denies unknown) dizziness and Reports weakness (unknown) (no (unknown) (unknown) Neut # (Auto) (units ( unknown) date) (0940-2911) /uL unknown) (unknown) (no (unknown) (unknown) Neut # (Auto) 5400 (units (unknown) date) (8845-5843) /uL unknown) (unknown) (no (unknown) (unknown) Neut % (Auto) (units ( unknown) date) (50-75) % unknown) (unknown) (no (unknown) (unknown) Neut % (Auto) 58.6 (units (unknown) date) (50-75) % unknown) (unknown) (no (unknown) (unknown) Nitroglycerin (units ( unknown) date) (Nitroglycerin Oint unknown) 1 Inch/Gm Oint...G.) 1 inch TOP NOW ONE (unknown) (no (unknown) (unknown) No Known Drug (units ( unknown) date) Allergies Allergy unknown) Verified 04/20/22 16:15 (unknown) (no (unknown) (unknown) Nutritional (units (un known) date) Appearance: well unknown) nourished (unknown) (no (unknown) (unknown) On Anticoagulants: (units (unknown) date) No unknown) (unknown) (no (unknown) (unknown) Ordered: (units (unkno wn) date) unknown) (unknown) (no (unknown) (unknown) Orders (units (unkno wn) date) unknown) (unknown) (no (unknown) (unknown) Other Cardiac (units ( unknown) date) disease unknown) (unknown) (no (unknown) (unknown) Other: (units (unkno wn) date) unknown) (unknown) (no (unknown) (unknown) Oxygen Delivery (units (unknown) date) Method 04/20/22 unknown) 16:15 (unknown) (no (unknown) (unknown) Oxygen Delivery (units (unknown) date) Method Room Air unknown) Room Air (unknown) (no (unknown) (unknown) Oxygen Delivery (units (unknown) date) Method unknown) (unknown) (no (unknown) (unknown) PT (10.1-12.7) (units (unknown) date) SECONDS unknown) (unknown) (no (unknown) (unknown) PT 12.2 (units (unkno wn) date) (10.1-12.7) SECONDS unknown) (unknown) (no (unknown) (unknown) Palpation: soft, (units (unknown) date) No guarding and No unknown) tender (unknown) (no (unknown) (unknown) Partial (units (unkno wn) date) Thromboplastin Time unknown) Stat (unknown) (no (unknown) (unknown) Patient History (units (unknown) date) unknown) (unknown) (no (unknown) (unknown) Patient complains (units (unknown) date) of left anterior unknown) shoulder pain, pain is not reproducible with (unknown) (no (unknown) (unknown) Patient: (units (unkno wn) date) Tiffany Alfaro MR#: unknown) [id number] (unknown) (no (unknown) (unknown) Plt Count (units (unkn own) date) (150-400) X103/uL unknown) (unknown) (no (unknown) (unknown) Plt Count 169 (units ( unknown) date) (150-400) X103/uL unknown) (unknown) (no (unknown) (unknown) Potassium (units (unkn own) date) (3.4-5.1) mmol/L unknown) (unknown) (no (unknown) (unknown) Potassium 4.3 (units ( unknown) date) (3.4-5.1) mmol/L unknown) (unknown) (no (unknown) (unknown) Prothrombin Time (units (unknown) date) INR Stat unknown) (unknown) (no (unknown) (unknown) Psych (units (unkno wn) date) unknown) (unknown) (no (unknown) (unknown) Psychiatric (units (un known) date) unknown) (unknown) (no (unknown) (unknown) Psychiatric: (units (u nknown) date) Reports anxiety unknown) (unknown) (no (unknown) (unknown) Pulse Oximetry 96 (units (unknown) date) unknown) (unknown) (no (unknown) (unknown) Pulse Oximetry 97 (units (unknown) date) 04/20/22 16:15 unknown) (unknown) (no (unknown) (unknown) Pulse Oximetry 97 (units (unknown) date) 99 98 unknown) (unknown) (no (unknown) (unknown) Pulse Oximetry 98 (units (unknown) date) 95 unknown) (unknown) (no (unknown) (unknown) Pulse Oximetry 98 (units (unknown) date) 97 unknown) (unknown) (no (unknown) (unknown) Pulse Rate 61 (units ( unknown) date) unknown) (unknown) (no (unknown) (unknown) Pulse Rate 66 60 (units (unknown) date) unknown) (unknown) (no (unknown) (unknown) Pulse Rate 68 (units ( unknown) date) unknown) (unknown) (no (unknown) (unknown) Pulse Rate 90 (units ( unknown) date) 04/20/22 16:15 unknown) (unknown) (no (unknown) (unknown) Pulse Rate 90 78 (units (unknown) date) 74 unknown) (unknown) (no (unknown) (unknown) RBC (4.0-5.2) (units ( unknown) date) X106/uL unknown) (unknown) (no (unknown) (unknown) RBC 5.08 (4.0-5.2) (units (unknown) date) X106/uL unknown) (unknown) (no (unknown) (unknown) RDW (11.6-14.8) % (units (unknown) date) unknown) (unknown) (no (unknown) (unknown) RDW 14.3 (units (unkno wn) date) (11.6-14.8) % unknown) (unknown) (no (unknown) (unknown) ROS Unobtainable: (units (unknown) date) All systems unknown) reviewed + are unremarkable except as noted in HPI (unknown) (no (unknown) (unknown) Rate: regular rate (units (unknown) date) unknown) (unknown) (no (unknown) (unknown) Referrals: (units (unk nown) date) unknown) (unknown) (no (unknown) (unknown) Related Data (units (u nknown) date) unknown) (unknown) (no (unknown) (unknown) Resp (units (unkno wn) date) unknown) (unknown) (no (unknown) (unknown) Respiratory Rate (units (unknown) date) 14 04/20/22 16:15 unknown) (unknown) (no (unknown) (unknown) Respiratory Rate (units (unknown) date) 14 22 22 unknown) (unknown) (no (unknown) (unknown) Respiratory Rate (units (unknown) date) 20 21 unknown) (unknown) (no (unknown) (unknown) Respiratory Rate (units (unknown) date) 20 unknown) (unknown) (no (unknown) (unknown) Respiratory Rate (units (unknown) date) 22 unknown) (unknown) (no (unknown) (unknown) Respiratory (units (un known) date) unknown) (unknown) (no (unknown) (unknown) Respiratory: (units (u nknown) date) Denies cough and unknown) Reports dyspnea on exertion (unknown) (no (unknown) (unknown) Result diagrams: (units (unknown) date) unknown) (unknown) (no (unknown) (unknown) Review of Systems (units (unknown) date) unknown) (unknown) (no (unknown) (unknown) Rhythm: regular (units (unknown) date) rhythm unknown) (unknown) (no (unknown) (unknown) Signed By: (units (unk nown) date) unknown) (unknown) (no (unknown) (unknown) Skin (units (unkno wn) date) unknown) (unknown) (no (unknown) (unknown) Skin/Breast: (units (u nknown) date) Denies lesions and unknown) Denies rash (unknown) (no (unknown) (unknown) Smoking Status: (units (unknown) date) Current every day unknown) smoker (unknown) (no (unknown) (unknown) Social History (units (unknown) date) (Reviewed 04/20/22 unknown) @ 18:25 by Joseph Samuels MD) (unknown) (no (unknown) (unknown) Sodium (137-145) (units (unknown) date) mmol/L unknown) (unknown) (no (unknown) (unknown) Sodium 140 (units (unk nown) date) (137-145) mmol/L unknown) (unknown) (no (unknown) (unknown) Sodium Chloride (units (unknown) date) (Normal Saline unknown) 0.9%) 1,000 mls @ 150 mls/hr IV CONT ELENO (unknown) (no (unknown) (unknown) Source: patient (units (unknown) date) unknown) (unknown) (no (unknown) (unknown) Stated Complaint: (units (unknown) date) cardiac issues unknown) (unknown) (no (unknown) (unknown) Stop: 04/20/22 (units (unknown) date) 17:09 unknown) (unknown) (no (unknown) (unknown) Stop: 04/20/22 (units (unknown) date) 18:16 unknown) (unknown) (no (unknown) (unknown) Stop: 04/20/22 (units (unknown) date) 18:17 unknown) (unknown) (no (unknown) (unknown) Substance Use (units ( unknown) date) Type: does not use unknown) (unknown) (no (unknown) (unknown) Surgical History (units (unknown) date) (Updated 04/20/22 @ unknown) 18:26 by Joseph Samuels MD) (unknown) (no (unknown) (unknown) Temperature 97.1 F (units (unknown) date) L 04/20/22 16:15 unknown) (unknown) (no (unknown) (unknown) Temperature 97.1 F (units (unknown) date) L unknown) (unknown) (no (unknown) (unknown) Temperature (units (un known) date) unknown) (unknown) (no (unknown) (unknown) The patient is not (units (unknown) date) feel wall for about unknown) 5 days. She complains of weakness. She (unknown) (no (unknown) (unknown) Throat: posterior (units (unknown) date) oropharynx normal unknown) (unknown) (no (unknown) (unknown) Time Seen by (units (u nknown) date) Provider: 04/20/22 unknown) 16:48 (unknown) (no (unknown) (unknown) Total Bilirubin (units (unknown) date) (0.2-1.3) mg/dL unknown) (unknown) (no (unknown) (unknown) Total Bilirubin (units (unknown) date) 0.5 (0.2-1.3) mg/dL unknown) (unknown) (no (unknown) (unknown) Total Creatine (units (unknown) date) Kinase (30-135) U/L unknown) (unknown) (no (unknown) (unknown) Total Creatine (units (unknown) date) Kinase 29 L unknown) (30-135) U/L (unknown) (no (unknown) (unknown) Total Protein (units ( unknown) date) (6.3-8.2) g/dL unknown) (unknown) (no (unknown) (unknown) Total Protein 8.1 (units (unknown) date) (6.3-8.2) g/dL unknown) (unknown) (no (unknown) (unknown) Troponin + CK (units ( unknown) date) Cardiac Panel Stat unknown) (unknown) (no (unknown) (unknown) Troponin I < 0.012 (units (unknown) date) (0.01-0.034) ng/mL unknown) (unknown) (no (unknown) (unknown) Troponin I (units (unk nown) date) (0.01-0.034) ng/mL unknown) (unknown) (no (unknown) (unknown) Vital Signs - 8 hr (units (unknown) date) unknown) (unknown) (no (unknown) (unknown) Vital Signs (units (un known) date) unknown) (unknown) (no (unknown) (unknown) Vital signs: (units (u nknown) date) unknown) (unknown) (no (unknown) (unknown) WBC (4.5-11.0) (units (unknown) date) X103/uL unknown) (unknown) (no (unknown) (unknown) WBC 9.3 (4.5-11.0) (units (unknown) date) X103/uL unknown) (unknown) (no (unknown) (unknown) XR chest 1V Stat (units (unknown) date) unknown) (unknown) (no (unknown) (unknown) Ligia Banerjee, (units (unknown) date) RN [Primary Care unknown) Provider] (unknown) (no (unknown) (unknown) [Embedded Image (units (unknown) date) Not Available] unknown) (unknown) (no (unknown) (unknown) alcohol intake (units (unknown) date) frequency: unknown) holidays/special occasions only (unknown) (no (unknown) (unknown) almost passed out. (units (unknown) date) She had a similar unknown) event today. She was seen at a nearby (unknown) (no (unknown) (unknown) and below (units (unkn own) date) unknown) (unknown) (no (unknown) (unknown) and thyroid (units (un known) date) medications. She unknown) denies recent illness. (unknown) (no (unknown) (unknown) anterior IA. no (units (unknown) date) ectopy. No acute ST unknown) elevation. ) (unknown) (no (unknown) (unknown) bradycardia rate (units (unknown) date) 57 beats per unknown) minute. Left axis deviation. Possible old (unknown) (no (unknown) (unknown) continues to not (units (unknown) date) feel well. She has unknown) weakness. She had mild discomfort in the (unknown) (no (unknown) (unknown) deficits (units (unkno wn) date) unknown) (unknown) (no (unknown) (unknown) diaphoresis. She (units (unknown) date) has no confusion, unknown) no speech changes, no vision deficits, and (unknown) (no (unknown) (unknown) exertion (units (unkno wn) date) unknown) (unknown) (no (unknown) (unknown) experienced chest (units (unknown) date) pain or back pain. unknown) She had an episode 4 days ago of near (unknown) (no (unknown) (unknown) fatigue, Denies (units (unknown) date) fever(s), Reports unknown) lethargy, Denies malaise and Reports weakness (unknown) (no (unknown) (unknown) has dyspnea with (units (unknown) date) exertion. She unknown) currently has left shoulder pain. She has not (unknown) (no (unknown) (unknown) hospital, cleared (units (unknown) date) and sent home. unknown) Cardiac evaluation head CT were normal. She (unknown) (no (unknown) (unknown) left upper (units (unk nown) date) shoulder. She has unknown) dyspnea with exertion. She does not have (unknown) (no (unknown) (unknown) no focal numbness (units (unknown) date) or weakness. She is unknown) compliant with losartan for hypertension (unknown) (no (unknown) (unknown) palpation or (units (u nknown) date) shoulder motion. unknown) (unknown) (no (unknown) (unknown) pressure and (units (u nknown) date) Denies sore throat unknown) (unknown) (no (unknown) (unknown) syncope. She was (units (unknown) date) having lunch with unknown) her friends, she became lightheaded and Result panel 10 (unknown) (no (unknown) (unknown) (no value) (units (unk nown) date) unknown) (unknown) (no (unknown) (unknown) +---------+ (units (un known) date) [phone] +--------- unknown) (unknown) (no (unknown) (unknown) +---------+ (units (un known) date) Hospital +--------- unknown) (unknown) (no (unknown) (unknown) + (units (unknown) date) unknown) --- (unknown) (no (unknown) (unknown) 04/20/22 (units (unkno wn) date) unknown) (unknown) (no (unknown) (unknown) [address] (units (unknown) date) unknown) (unknown) (no (unknown) (unknown) [address] (units (unkno wn) date) unknown) (unknown) (no (unknown) (unknown) : : [address] (units (unknown) date) : : unknown) (unknown) (no (unknown) (unknown) : : [address] : : (units ( unknown) date) unknown) (unknown) (no (unknown) (unknown) : : [facility] (units (unknown) date) : : unknown) (unknown) (no (unknown) (unknown) : : Phone: [phone] (units (unknown) date) : unknown) (unknown) (no (unknown) (unknown) :Account #: (units (un known) date) [id number] Gender: unknown) Female BSA: 1.9 m2 : (unknown) (no (unknown) (unknown) :: 1940 (units (unknown) date) Age: 81 yrs BP: unknown) 168/88 mmHg: (unknown) (no (unknown) (unknown) :Hospital MRN #: (units (unknown) date) [id number] unknown) ReadingLocation: Weight: 170 lb : (unknown) (no (unknown) (unknown) :VIKTOR Sotomayor D.O (units (unknown) date) Performed By: unknown) Mona Kidd : (unknown) (no (unknown) (unknown) :Name: TIFFANY ALFARO (units (unknown) date) L Study Date: unknown) 04/21/2022 Height: 66 in : (unknown) (no (unknown) (unknown) :Ordering (units (unkn own) date) Physician: HARESH, : unknown) (unknown) (no (unknown) (unknown) :Reason For Study: (units (unknown) date) CHEST PAIN : unknown) (unknown) (no (unknown) (unknown) :Referring: HARESH, (units (unknown) date) VIKTOR LrO : unknown) (unknown) (no (unknown) (unknown) sev ratio: 0.82 (units (unknown) date) unknown) (unknown) (no (unknown) (unknown) MARAL indexed to BSA (units (unknown) date) (cm2/m2): 1.5 unknown) (unknown) (no (unknown) (unknown) Accession Number: (units (unknown) date) [id number] unknown) (unknown) (no (unknown) (unknown) Age/Sex: 81 / F (units (unknown) date) Date of Service: unknown) (unknown) (no (unknown) (unknown) [place] (units ( unknown) date) [id number] unknown) (unknown) (no (unknown) (unknown) Ao V2 VTI: 35.0 cm (units (unknown) date) MARAL(V,D): 2.7 cm2 unknown) (unknown) (no (unknown) (unknown) Ao V2 max: 140.9 (units (unknown) date) cm/sec LVOT Max unknown) Alejandro: 111.7 cm/sec (unknown) (no (unknown) (unknown) Ao V2 mean: 106.9 (units (unknown) date) cm/sec LV V1 max unknown) P.0 mmHg (unknown) (no (unknown) (unknown) Ao max P.9 (units (unknown) date) mmHg LV V1 VTI: unknown) 28.7 cm (unknown) (no (unknown) (unknown) Ao mean P.9 (units (unknown) date) mmHg MARAL(I,D): 2.8 unknown) cm2 (unknown) (no (unknown) (unknown) Aortic Valve: The (units (unknown) date) aortic valve is not unknown) well visualized. The aortic valve is (unknown) (no (unknown) (unknown) Atria: The left (units (unknown) date) atrial size is unknown) normal. Right atrial size is normal. There is (unknown) (no (unknown) (unknown) : 1940 (units (unknown) date) Acct:[id number] unknown) (unknown) (no (unknown) (unknown) Doppler (units (unkno wn) date) Measurements + unknown) Calculations (unknown) (no (unknown) (unknown) E/E' lat: 12.6 (units (unknown) date) unknown) (unknown) (no (unknown) (unknown) E/E' med: 15.9 PA (units (unknown) date) mean P.2 mmHg unknown) (unknown) (no (unknown) (unknown) E/e' average: 14.3 (units (unknown) date) unknown) (unknown) (no (unknown) (unknown) Echocardiogram (units (unknown) date) Report unknown) (unknown) (no (unknown) (unknown) Echocardiography (units (unknown) date) Report unknown) (unknown) (no (unknown) (unknown) Electronically (units (unknown) date) signed by: Arthur Cantrell on 04/21/2022 (unknown) (no (unknown) (unknown) FS: 26.6 % Ao Arch (units (unknown) date) Diam (Prox Trans): unknown) 2.8 cm (unknown) (no (unknown) (unknown) Great Vessels: The (units (unknown) date) aortic root is unknown) normal size. The dimensions of the (unknown) (no (unknown) (unknown) IVSd: 1.2 cm (units (u nknown) date) unknown) (unknown) (no (unknown) (unknown) Interpretation (units (unknown) date) Summary unknown) (unknown) (no (unknown) (unknown) [facility] (units (unknown) date) unknown) (unknown) (no (unknown) (unknown) [place] (units (unkno wn) date) unknown) (unknown) (no (unknown) (unknown) LA A2 area: 18.2 (units (unknown) date) cm2 RA long axis: unknown) 4.9 cm (unknown) (no (unknown) (unknown) LA A4 area: 16.1 (units (unknown) date) cm2 RA area: 15.1 unknown) cm2 (unknown) (no (unknown) (unknown) LA length (vol): (units (unknown) date) 5.3 cm RA vol: 39.4 unknown) ml (unknown) (no (unknown) (unknown) LA vol index: 25.4 (units (unknown) date) ml/m2 IVC diam: 1.3 unknown) cm (unknown) (no (unknown) (unknown) LA vol: 47.4 ml RA (units (unknown) date) : 21.1 ml/m2 unknown) (unknown) (no (unknown) (unknown) LV duval. (units (unkno wn) date) diameter/BSA unknown) (cm/m2): 2.1 (unknown) (no (unknown) (unknown) LV sys. (units (unkno wn) date) diameter/BSA unknown) (cm/m2): 1.5 (unknown) (no (unknown) (unknown) LVIDd: 3.9 cm LVOT (units (unknown) date) diam: 2.1 cm unknown) (unknown) (no (unknown) (unknown) LVIDs: 2.9 cm Ao (units (unknown) date) root diam: 2.9 cm unknown) (unknown) (no (unknown) (unknown) LVPWd: 1.1 cm (units ( unknown) date) unknown) (unknown) (no (unknown) (unknown) Lat Peak E' Alejandro: (units (unknown) date) 6.2 cm/sec PA unknown) pr(Accel): 31.0 mmHg (unknown) (no (unknown) (unknown) Left Ventricle: (units (unknown) date) The left ventricle unknown) is normal in size. There is mild (unknown) (no (unknown) (unknown) Left ventricular (units (unknown) date) wall motion is unknown) normal. (unknown) (no (unknown) (unknown) Loc: AC 225-1 (units ( unknown) date) unknown) (unknown) (no (unknown) (unknown) MMode/2D (units (unkno wn) date) Measurements + unknown) Calculations (unknown) (no (unknown) (unknown) MV A max alejandro: (units ( unknown) date) 111.3 cm/sec TR max unknown) P.6 mmHg (unknown) (no (unknown) (unknown) MV E max alejandro: 78.1 (units (unknown) date) cm/sec TR max alejandro: unknown) 177.4 cm/sec (unknown) (no (unknown) (unknown) MV E/A: 0.70 PA V2 (units (unknown) date) max: 74.6 cm/sec unknown) (unknown) (no (unknown) (unknown) MV dec time: 0.28 (units (unknown) date) sec unknown) (unknown) (no (unknown) (unknown) Med Peak E' Alejanrdo: (units (unknown) date) 4.9 cm/sec PA V2 unknown) mean: 52.4 cm/sec (unknown) (no (unknown) (unknown) Mitral Valve: The (units (unknown) date) mitral valve is unknown) normal in structure and function. There is (unknown) (no (unknown) (unknown) Ordering Provider: (units (unknown) date) Viktor Wise unknown) D.OAlayna (unknown) (no (unknown) (unknown) Patient: (units (unkno wn) date) Tiffany Alfaro MR#: unknown) [id number] (unknown) (no (unknown) (unknown) Pericardium/ (units (u nknown) date) Pleura There is no unknown) pericardial effusion. There is no pleural (unknown) (no (unknown) (unknown) Procedure: A (units (u nknown) date) two-dimensional unknown) transthoracic echocardiogram with color flow (unknown) (no (unknown) (unknown) Procedure: EC echo (units (unknown) date) doppler complete unknown) (unknown) (no (unknown) (unknown) Pulmonic Valve: (units (unknown) date) The pulmonic valve unknown) is not well visualized. There is no (unknown) (no (unknown) (unknown) RVD1 (basal): 3.0 (units (unknown) date) cm unknown) (unknown) (no (unknown) (unknown) RVD2 (mid): 2.3 cm (units (unknown) date) unknown) (unknown) (no (unknown) (unknown) Reading (units (unkno wn) date) Physician:12:55 PM unknown) (unknown) (no (unknown) (unknown) Right Ventricle: (units (unknown) date) The right ventricle unknown) is normal in size and function. (unknown) (no (unknown) (unknown) SV(LVOT): 96.9 ml (units (unknown) date) unknown) (unknown) (no (unknown) (unknown) Signed (units (unkno wn) date) unknown) (unknown) (no (unknown) (unknown) TAPSE: 2.0 cm (units ( unknown) date) unknown) (unknown) (no (unknown) (unknown) The ejection (units (u nknown) date) fraction is unknown) estimated to be 55-60%. (unknown) (no (unknown) (unknown) There is mild (units ( unknown) date) mitral unknown) regurgitation. (unknown) (no (unknown) (unknown) There is trace (units (unknown) date) tricuspid unknown) regurgitation. The right ventricular systolic (unknown) (no (unknown) (unknown) There is trace (units (unknown) date) tricuspid unknown) regurgitation. (unknown) (no (unknown) (unknown) Tricuspid Valve: (units (unknown) date) The tricuspid valve unknown) is normal in structure and function. (unknown) (no (unknown) (unknown) (units (unknown) date) unknown) ___ (unknown) (no (unknown) (unknown) and Doppler was (units (unknown) date) performed. The unknown) study quality was technically adequate. There (unknown) (no (unknown) (unknown) ascending aorta (units (unknown) date) are normal. The IVC unknown) is of normal diameter and collapses (unknown) (no (unknown) (unknown) atrial pressure of (units (unknown) date) 3 mm Hg. unknown) (unknown) (no (unknown) (unknown) concentric left (units (unknown) date) ventricular unknown) hypertrophy. A false chord is noted (normal (unknown) (no (unknown) (unknown) effusion. (units (unkn own) date) unknown) (unknown) (no (unknown) (unknown) greater than 50% (units (unknown) date) with a sniff. This unknown) suggests a low right atrial pressure of 3 (unknown) (no (unknown) (unknown) grossly normal. (units (unknown) date) There is no aortic unknown) valve stenosis. No aortic regurgitation is (unknown) (no (unknown) (unknown) is no prior (units (un known) date) echocardiogram unknown) noted for this patient. The patient was in sinus (unknown) (no (unknown) (unknown) mild mitral (units (un known) date) regurgitation. unknown) (unknown) (no (unknown) (unknown) mm Hg. (units (unkno wn) date) unknown) (unknown) (no (unknown) (unknown) no Doppler (units (unk nown) date) evidence for an unknown) interatrial shunt. (unknown) (no (unknown) (unknown) present. (units (unkno wn) date) unknown) (unknown) (no (unknown) (unknown) pressure is (units (un known) date) estimated to be at unknown) least 16 mmHg based on an estimated right (unknown) (no (unknown) (unknown) pulmonic valvular (units (unknown) date) regurgitation. unknown) (unknown) (no (unknown) (unknown) rhythm with heart (units (unknown) date) rates between 55-72 unknown) bpm during the exam. (unknown) (no (unknown) (unknown) variant). The (units ( unknown) date) ejection fraction unknown) is estimated to be 55-60%. Left ventricular (unknown) (no (unknown) (unknown) wall motion is (units (unknown) date) normal. unknown) Result panel 11 (unknown) (no (unknown) (unknown) (no value) (units (unk nown) date) unknown) (unknown) (no (unknown) (unknown) <Electronically (units (unknown) date) signed by Joseph moyer) MD Abril> (unknown) (no (unknown) (unknown) 1. No acute (units (un known) date) pulmonary embolus.? unknown) No acute abnormality is seen in the chest. (unknown) (no (unknown) (unknown) 04/20/22 04/20/22 (units (unknown) date) 04/20/22 unknown) Range/Units (unknown) (no (unknown) (unknown) 04/20/22 16:18 (units (unknown) date) unknown) (unknown) (no (unknown) (unknown) 04/20/22 16:20 (units (unknown) date) unknown) (unknown) (no (unknown) (unknown) 04/20/22 16:22 (units (unknown) date) unknown) (unknown) (no (unknown) (unknown) 04/20/22 17:08 (units (unknown) date) unknown) (unknown) (no (unknown) (unknown) 04/20/22 1839 (units ( unknown) date) unknown) (unknown) (no (unknown) (unknown) 04/20/22 (units (unkno wn) date) Range/Units unknown) (unknown) (no (unknown) (unknown) 04/20/22 (units (unkno wn) date) unknown) (unknown) (no (unknown) (unknown) 16:15 04/20/22 (units (unknown) date) unknown) (unknown) (no (unknown) (unknown) 16:20 16:22 16:22 (units (unknown) date) unknown) (unknown) (no (unknown) (unknown) 16:22 (units (unkno wn) date) unknown) (unknown) (no (unknown) (unknown) 16:43 04/20/22 (units (unknown) date) unknown) (unknown) (no (unknown) (unknown) 17:15 (units (unkno wn) date) unknown) (unknown) (no (unknown) (unknown) 17:16 04/20/22 (units (unknown) date) unknown) (unknown) (no (unknown) (unknown) 17:35 (units (unkno wn) date) unknown) (unknown) (no (unknown) (unknown) 17:43 04/20/22 (units (unknown) date) unknown) (unknown) (no (unknown) (unknown) 18:00 (units (unkno wn) date) unknown) (unknown) (no (unknown) (unknown) 18:01 04/20/22 (units (unknown) date) unknown) (unknown) (no (unknown) (unknown) 18:01 (units (unkno wn) date) unknown) (unknown) (no (unknown) (unknown) 2. 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 (unknown) (no (unknown) (unknown) 4900 (units (unkno wn) date) unknown) (unknown) (no (unknown) (unknown) ALT (<35) IU/L (units (unknown) date) unknown) (unknown) (no (unknown) (unknown) ALT 12 (<35) IU/L (units (unknown) date) unknown) (unknown) (no (unknown) (unknown) APTT (26-36) (units (u nknown) date) SECONDS unknown) (unknown) (no (unknown) (unknown) APTT 28 (26-36) (units (unknown) date) SECONDS unknown) (unknown) (no (unknown) (unknown) AST (14-36) IU/L (units (unknown) date) unknown) (unknown) (no (unknown) (unknown) AST 25 (14-36) (units (unknown) date) IU/L unknown) (unknown) (no (unknown) (unknown) Admit Date/Time: (units (unknown) date) 04/20/22 18:22 unknown) (unknown) (no (unknown) (unknown) Admit Provider: (units (unknown) date) Viktor Wise unknown) (unknown) (no (unknown) (unknown) Age/Sex: 81 / F (units (unknown) date) unknown) (unknown) (no (unknown) (unknown) Albumin (3.5-5.0) (units (unknown) date) g/dL unknown) (unknown) (no (unknown) (unknown) Albumin 4.6 (units (un known) date) (3.5-5.0) g/dL unknown) (unknown) (no (unknown) (unknown) Albumin/Globulin (units (unknown) date) Ratio (1.0-2.8) unknown) (unknown) (no (unknown) (unknown) Albumin/Globulin (units (unknown) date) Ratio 1.3 (1.0-2.8) unknown) (unknown) (no (unknown) (unknown) Alkaline (units (unkno wn) date) Phosphatase unknown) (38-126) U/L (unknown) (no (unknown) (unknown) Alkaline (units (unkno wn) date) Phosphatase 68 unknown) (38-126) U/L (unknown) (no (unknown) (unknown) Allergies (units (unkn own) date) unknown) (unknown) (no (unknown) (unknown) Allergy/AdvReac (units (unknown) date) Type Severity unknown) Reaction Status Date / Time (unknown) (no (unknown) (unknown) Appearance: (units (un known) date) grossly normal unknown) (unknown) (no (unknown) (unknown) Aspirin (Aspirin (units (unknown) date) 81 Mg Chew Tab) 324 unknown) mg PO NOW ONE (unknown) (no (unknown) (unknown) Attestation: I (units (unknown) date) personally reviewed unknown) and interpreted this ECG as follows: (Sinus (unknown) (no (unknown) (unknown) Attestation: (units (u nknown) date) unknown) (unknown) (no (unknown) (unknown) Auscultation: (units ( unknown) date) clear to unknown) auscultation bilaterally (unknown) (no (unknown) (unknown) BUN (7-17) mg/dL (units (unknown) date) unknown) (unknown) (no (unknown) (unknown) BUN 17 (7-17) (units ( unknown) date) mg/dL unknown) (unknown) (no (unknown) (unknown) BUN/Creatinine (units (unknown) date) Ratio (6-22) unknown) (unknown) (no (unknown) (unknown) BUN/Creatinine (units (unknown) date) Ratio 20.5 (6-22) unknown) (unknown) (no (unknown) (unknown) Back/Spine/Pelvis (units (unknown) date) unknown) (unknown) (no (unknown) (unknown) Back: normal to (units (unknown) date) inspection unknown) (unknown) (no (unknown) (unknown) Baso # (Auto) (units ( unknown) date) (0-100) /uL unknown) (unknown) (no (unknown) (unknown) Baso # (Auto) 100 (units (unknown) date) (0-100) /uL unknown) (unknown) (no (unknown) (unknown) Baso % (Auto) (units ( unknown) date) (0-2) % unknown) (unknown) (no (unknown) (unknown) Baso % (Auto) 1.5 (units (unknown) date) (0-2) % unknown) (unknown) (no (unknown) (unknown) Blood Pressure (units (unknown) date) 183/103 H 04/20/22 unknown) 16:15 (unknown) (no (unknown) (unknown) Blood Pressure (units (unknown) date) 183/103 H 208/101 H unknown) (unknown) (no (unknown) (unknown) Blood Pressure (units (unknown) date) 185/84 H unknown) (unknown) (no (unknown) (unknown) Blood Pressure (units (unknown) date) 193/97 H unknown) (unknown) (no (unknown) (unknown) Blood Pressure (units (unknown) date) 217/102 H unknown) (unknown) (no (unknown) (unknown) CK-MB (CK-2) Rel (units (unknown) date) Index TNP unknown) (unknown) (no (unknown) (unknown) CK-MB (CK-2) Rel (units (unknown) date) Index unknown) (unknown) (no (unknown) (unknown) CK-MB (CK-2) TNP (units (unknown) date) unknown) (unknown) (no (unknown) (unknown) CK-MB (CK-2) (units (u nknown) date) unknown) (unknown) (no (unknown) (unknown) CT angio chest PE (units (unknown) date) protocol Stat unknown) (unknown) (no (unknown) (unknown) Calcium (8.4-10.2) (units (unknown) date) mg/dL unknown) (unknown) (no (unknown) (unknown) Calcium 9.3 (units (un known) date) (8.4-10.2) mg/dL unknown) (unknown) (no (unknown) (unknown) Carbon Dioxide (units (unknown) date) (22-32) mmol/L unknown) (unknown) (no (unknown) (unknown) Carbon Dioxide 26 (units (unknown) date) (22-32) mmol/L unknown) (unknown) (no (unknown) (unknown) Cardio (units (unkno wn) date) unknown) (unknown) (no (unknown) (unknown) Cardiovascular (units (unknown) date) unknown) (unknown) (no (unknown) (unknown) Cardiovascular: (units (unknown) date) Reports as per HPI, unknown) Reports chest pain and Reports dyspnea on (unknown) (no (unknown) (unknown) Cataracts, (units (unk nown) date) bilateral unknown) (unknown) (no (unknown) (unknown) Chest CTA: (units (unk nown) date) unknown) (unknown) (no (unknown) (unknown) Chest x-ray: (units (u nknown) date) unknown) (unknown) (no (unknown) (unknown) Chest (units (unkno wn) date) unknown) (unknown) (no (unknown) (unknown) Chest: normal (units ( unknown) date) palpation of entire unknown) chest wall (unknown) (no (unknown) (unknown) Chief Complaint: (units (unknown) date) Dizziness unknown) (unknown) (no (unknown) (unknown) Chloride (98-107) (units (unknown) date) mmol/L unknown) (unknown) (no (unknown) (unknown) Chloride 105 (units (u nknown) date) (98-107) mmol/L unknown) (unknown) (no (unknown) (unknown) Clinical (units (unkno wn) date) Impression: unknown) (unknown) (no (unknown) (unknown) Complete Blood (units (unknown) date) Count AUTO DIFF unknown) Stat (unknown) (no (unknown) (unknown) Comprehensive (units ( unknown) date) Metabolic Panel unknown) Stat (unknown) (no (unknown) (unknown) Const (units (unkno wn) date) unknown) (unknown) (no (unknown) (unknown) Constitutional (units (unknown) date) unknown) (unknown) (no (unknown) (unknown) Constitutional: (units (unknown) date) Denies anorexia, unknown) Denies body ache(s), Denies chills, Reports (unknown) (no (unknown) (unknown) Course Narrative: (units (unknown) date) unknown) (unknown) (no (unknown) (unknown) Course (units (unkno wn) date) unknown) (unknown) (no (unknown) (unknown) Creatinine (units (unk nown) date) (0.52-1.04) mg/dL unknown) (unknown) (no (unknown) (unknown) Creatinine 0.83 (units (unknown) date) (0.52-1.04) mg/dL unknown) (unknown) (no (unknown) (unknown) Critical Care Time (units (unknown) date) unknown) (unknown) (no (unknown) (unknown) Critical Care (units ( unknown) date) Time: Yes unknown) (unknown) (no (unknown) (unknown) D Dimer Stat (units (u nknown) date) unknown) (unknown) (no (unknown) (unknown) D-Dimer (<500) (units (unknown) date) ng/ml unknown) (unknown) (no (unknown) (unknown) D-Dimer 728 H (units ( unknown) date) (<500) ng/ml unknown) (unknown) (no (unknown) (unknown) : 1940 (units (unknown) date) Acct:[id number] unknown) (unknown) (no (unknown) (unknown) Date of Service: (units (unknown) date) 04/20/22 unknown) (unknown) (no (unknown) (unknown) Denies muscle (units ( unknown) date) cramps unknown) (unknown) (no (unknown) (unknown) Departure (units (unkn own) date) unknown) (unknown) (no (unknown) (unknown) Discharge Plan (units (unknown) date) unknown) (unknown) (no (unknown) (unknown) Discontinued (units (u nknown) date) Medications unknown) (unknown) (no (unknown) (unknown) Documented By: LETY (units (unknown) date) unknown) (unknown) (no (unknown) (unknown) ECG Data (units (unkno wn) date) unknown) (unknown) (no (unknown) (unknown) ED Orders (units (unkn own) date) unknown) (unknown) (no (unknown) (unknown) EKG-12 Lead Stat (units (unknown) date) unknown) (unknown) (no (unknown) (unknown) ENT (units (unkno wn) date) unknown) (unknown) (no (unknown) (unknown) ER Physician: (units ( unknown) date) Joseph Samuels MD unknown) (unknown) (no (unknown) (unknown) Ears, Nose, Mouth, (units (unknown) date) and Throat: Denies unknown) vertigo, Denies dizziness, Denies sinus (unknown) (no (unknown) (unknown) Emergency Report (units (unknown) date) unknown) (unknown) (no (unknown) (unknown) Endocrine (units (unkn own) date) unknown) (unknown) (no (unknown) (unknown) Endocrine: Reports (units (unknown) date) fatigue unknown) (unknown) (no (unknown) (unknown) Eos # (Auto) (units (u nknown) date) (0-450) /uL unknown) (unknown) (no (unknown) (unknown) Eos # (Auto) 100 (units (unknown) date) (0-450) /uL unknown) (unknown) (no (unknown) (unknown) Eos % (Auto) (2-4) (units (unknown) date) % unknown) (unknown) (no (unknown) (unknown) Eos % (Auto) 1.1 L (units (unknown) date) (2-4) % unknown) (unknown) (no (unknown) (unknown) Estimated GFR > 60 (units (unknown) date) (>60) mL/min unknown) (unknown) (no (unknown) (unknown) Estimated GFR (units ( unknown) date) (>60) mL/min unknown) (unknown) (no (unknown) (unknown) Exam (units (unkno wn) date) unknown) (unknown) (no (unknown) (unknown) Extrem (units (unkno wn) date) unknown) (unknown) (no (unknown) (unknown) Eyes (units (unkno wn) date) unknown) (unknown) (no (unknown) (unknown) Eyes: Denies (units (u nknown) date) blurry vision and unknown) Denies exophthalmos (unknown) (no (unknown) (unknown) Face and sinus: (units (unknown) date) normal facial exam unknown) (unknown) (no (unknown) (unknown) Family History (units (unknown) date) (Updated 04/20/22 @ unknown) 18:25 by Joseph Samuels MD) (unknown) (no (unknown) (unknown) GI (units (unkno wn) date) unknown) (unknown) (no (unknown) (unknown) Gastrointestinal (units (unknown) date) unknown) (unknown) (no (unknown) (unknown) Gastrointestinal: (units (unknown) date) Denies abdominal unknown) pain and Denies nausea (unknown) (no (unknown) (unknown) General (units (unkno wn) date) unknown) (unknown) (no (unknown) (unknown) General: Yes (units (u nknown) date) appearance normal, unknown) both eyes and all related structures (unknown) (no (unknown) (unknown) General: (units (unkno wn) date) cooperative, well unknown) developed, well groomed and anxious (unknown) (no (unknown) (unknown) General: no rashes (units (unknown) date) or lesions noted unknown) (unknown) (no (unknown) (unknown) General: normal to (units (unknown) date) inspection, full unknown) ROM, no pedal edema and no calf tenderness (unknown) (no (unknown) (unknown) General: patient (units (unknown) date) alert, patient unknown) awake, patient oriented x3 and no focal motor (unknown) (no (unknown) (unknown) Genitourinary (units ( unknown) date) unknown) (unknown) (no (unknown) (unknown) Genitourinary: (units (unknown) date) Denies dysuria unknown) (unknown) (no (unknown) (unknown) Globulin (1.7-4.1) (units (unknown) date) g/dL unknown) (unknown) (no (unknown) (unknown) Globulin 3.5 (units (u nknown) date) (1.7-4.1) g/dL unknown) (unknown) (no (unknown) (unknown) Glucose (80-110) (units (unknown) date) mg/dL unknown) (unknown) (no (unknown) (unknown) Glucose 85 (units (unk nown) date) (80-110) mg/dL unknown) (unknown) (no (unknown) (unknown) H/O: hysterectomy (units (unknown) date) unknown) (unknown) (no (unknown) (unknown) HENMT (units (unkno wn) date) unknown) (unknown) (no (unknown) (unknown) HPI - Syncope (units ( unknown) date) unknown) (unknown) (no (unknown) (unknown) HPI narrative: (units (unknown) date) unknown) (unknown) (no (unknown) (unknown) Hct (36-46) % (units ( unknown) date) unknown) (unknown) (no (unknown) (unknown) Hct 45.6 (36-46) % (units (unknown) date) unknown) (unknown) (no (unknown) (unknown) Head: (units (unkno wn) date) normocephalic and unknown) atraumatic (unknown) (no (unknown) (unknown) Heart Sounds: S1 (units (unknown) date) normal, S2 normal unknown) and no murmurs (unknown) (no (unknown) (unknown) Hematologic/Lympha (units (unknown) date) tic unknown) (unknown) (no (unknown) (unknown) Hgb (12.0-16.0) (units (unknown) date) g/dL unknown) (unknown) (no (unknown) (unknown) Hgb 15.2 (units (unkno wn) date) (12.0-16.0) g/dL unknown) (unknown) (no (unknown) (unknown) History of Present (units (unknown) date) Illness unknown) (unknown) (no (unknown) (unknown) Hypertension (units (u nknown) date) unknown) (unknown) (no (unknown) (unknown) Hypothyroidism (units (unknown) date) unknown) (unknown) (no (unknown) (unknown) INR (0.9-1.3) (units ( unknown) date) unknown) (unknown) (no (unknown) (unknown) INR 1.1 (0.9-1.3) (units (unknown) date) unknown) (unknown) (no (unknown) (unknown) Imaging Data (units (u nknown) date) unknown) (unknown) (no (unknown) (unknown) Initial Vital (units ( unknown) date) Signs unknown) (unknown) (no (unknown) (unknown) Initial Vital (units ( unknown) date) Signs: unknown) (unknown) (no (unknown) (unknown) Inspection: normal (units (unknown) date) to inspection unknown) (unknown) (no (unknown) (unknown) Integumentary/[place] (units (unknown) date) sts unknown) (unknown) (no (unknown) (unknown) [facility] (units (unknown) date) [address] unknown) [place] [address] (unknown) (no (unknown) (unknown) Lab Data (units (unkno wn) date) unknown) (unknown) (no (unknown) (unknown) Lab Results (units (un known) date) unknown) (unknown) (no (unknown) (unknown) Labs: (units (unkno wn) date) unknown) (unknown) (no (unknown) (unknown) Last Admin: (units (un known) date) 04/20/22 17:14 unknown) Dose: 150 mls/hr (unknown) (no (unknown) (unknown) Last Admin: (units (un known) date) 04/20/22 17:14 unknown) Dose: 324 mg (unknown) (no (unknown) (unknown) Limitations: no (units (unknown) date) limitations unknown) (unknown) (no (unknown) (unknown) Lipase (23-300) (units (unknown) date) U/L unknown) (unknown) (no (unknown) (unknown) Lipase 112 (units (unk nown) date) (23-300) U/L unknown) (unknown) (no (unknown) (unknown) Lipase Stat (units (un known) date) unknown) (unknown) (no (unknown) (unknown) Lymph # (Auto) (units (unknown) date) (2179-5080) /uL unknown) (unknown) (no (unknown) (unknown) Lymph # (Auto) (units (unknown) date) 3100 (2191-9603) unknown) /uL (unknown) (no (unknown) (unknown) Lymph % (Auto) (units (unknown) date) (25-40) % unknown) (unknown) (no (unknown) (unknown) Lymph % (Auto) (units (unknown) date) 33.3 (25-40) % unknown) (unknown) (no (unknown) (unknown) MCH (26-34) PG (units (unknown) date) unknown) (unknown) (no (unknown) (unknown) MCH 30.0 (26-34) (units (unknown) date) PG unknown) (unknown) (no (unknown) (unknown) MCHC (30-36) % (units (unknown) date) unknown) (unknown) (no (unknown) (unknown) MCHC 33.4 (30-36) (units (unknown) date) % unknown) (unknown) (no (unknown) (unknown) MCV (80-100) fL (units (unknown) date) unknown) (unknown) (no (unknown) (unknown) MCV 89.7 (80-100) (units (unknown) date) fL unknown) (unknown) (no (unknown) (unknown) MDM - Syncope (units ( unknown) date) unknown) (unknown) (no (unknown) (unknown) Magnesium (units (unkn own) date) (1.6-2.3) mg/dL unknown) (unknown) (no (unknown) (unknown) Magnesium 2.0 (units ( unknown) date) (1.6-2.3) mg/dL unknown) (unknown) (no (unknown) (unknown) Magnesium Stat (units (unknown) date) unknown) (unknown) (no (unknown) (unknown) Medical History (units (unknown) date) (Updated 04/20/22 @ unknown) 18:38 by Joseph Samuels MD) (unknown) (no (unknown) (unknown) Metoprolol (units (unk nown) date) Tartrate unknown) (Metoprolol Ir 25 Mg Tablet) 25 mg PO NOW ONE (unknown) (no (unknown) (unknown) Mode of arrival: (units (unknown) date) Ambulatory unknown) (unknown) (no (unknown) (unknown) [place] # (Auto) (units ( unknown) date) (0-900) /uL unknown) (unknown) (no (unknown) (unknown) [place] # (Auto) 500 (units (unknown) date) (0-900) /uL unknown) (unknown) (no (unknown) (unknown) [place] % (Auto) (units ( unknown) date) (3-14) % unknown) (unknown) (no (unknown) (unknown) [place] % (Auto) 5.5 (units (unknown) date) (3-14) % unknown) (unknown) (no (unknown) (unknown) Mouth: oral (units (un known) date) mucosae normal and unknown) moist mucous membranes (unknown) (no (unknown) (unknown) Musculoskeletal (units (unknown) date) unknown) (unknown) (no (unknown) (unknown) Musculoskeletal: (units (unknown) date) Denies arthralgias, unknown) Denies back pain, Denies myalgias and (unknown) (no (unknown) (unknown) Near syncope, (units ( unknown) date) Hypertension, CAPONE unknown) (dyspnea on exertion), Anxiety (unknown) (no (unknown) (unknown) Neck (units (unkno wn) date) unknown) (unknown) (no (unknown) (unknown) Neck: No JVD (units (u nknown) date) unknown) (unknown) (no (unknown) (unknown) Neuro (units (unkno wn) date) unknown) (unknown) (no (unknown) (unknown) Neurologic (units (unk nown) date) unknown) (unknown) (no (unknown) (unknown) Neurologic: Denies (units (unknown) date) vertigo, Denies unknown) dizziness and Reports weakness (unknown) (no (unknown) (unknown) Neut # (Auto) (units ( unknown) date) (0060-9101) /uL unknown) (unknown) (no (unknown) (unknown) Neut # (Auto) 5400 (units (unknown) date) (0684-3229) /uL unknown) (unknown) (no (unknown) (unknown) Neut % (Auto) (units ( unknown) date) (50-75) % unknown) (unknown) (no (unknown) (unknown) Neut % (Auto) 58.6 (units (unknown) date) (50-75) % unknown) (unknown) (no (unknown) (unknown) Nitroglycerin (units ( unknown) date) (Nitroglycerin Oint unknown) 1 Inch/Gm Oint...G.) 1 inch TOP NOW ONE (unknown) (no (unknown) (unknown) No Known Drug (units ( unknown) date) Allergies Allergy unknown) Verified 04/20/22 16:15 (unknown) (no (unknown) (unknown) Normal. No acute (units (unknown) date) process. unknown) (unknown) (no (unknown) (unknown) Nutritional (units (un known) date) Appearance: well unknown) nourished (unknown) (no (unknown) (unknown) On Anticoagulants: (units (unknown) date) No unknown) (unknown) (no (unknown) (unknown) Ordered: (units (unkno wn) date) unknown) (unknown) (no (unknown) (unknown) Orders (units (unkno wn) date) unknown) (unknown) (no (unknown) (unknown) Other Cardiac (units ( unknown) date) disease unknown) (unknown) (no (unknown) (unknown) Other: (units (unkno wn) date) unknown) (unknown) (no (unknown) (unknown) Oxygen Delivery (units (unknown) date) Method 04/20/22 unknown) 16:15 (unknown) (no (unknown) (unknown) Oxygen Delivery (units (unknown) date) Method Room Air unknown) Room Air (unknown) (no (unknown) (unknown) Oxygen Delivery (units (unknown) date) Method unknown) (unknown) (no (unknown) (unknown) PE has been ruled (units (unknown) date) out. She is unknown) hypertensive, this has been observed without (unknown) (no (unknown) (unknown) PT (10.1-12.7) (units (unknown) date) SECONDS unknown) (unknown) (no (unknown) (unknown) PT 12.2 (units (unkno wn) date) (10.1-12.7) SECONDS unknown) (unknown) (no (unknown) (unknown) Palpation: soft, (units (unknown) date) No guarding and No unknown) tender (unknown) (no (unknown) (unknown) Partial (units (unkno wn) date) Thromboplastin Time unknown) Stat (unknown) (no (unknown) (unknown) Patient (units (unkno wn) date) Disposition: unknown) Admitted as Observation (unknown) (no (unknown) (unknown) Patient History (units (unknown) date) unknown) (unknown) (no (unknown) (unknown) Patient complains (units (unknown) date) of left anterior unknown) shoulder pain, pain is not reproducible with (unknown) (no (unknown) (unknown) Patient is (units (unk nown) date) hypertensive and unknown) anxious upon arrival. Her vague symptoms but (unknown) (no (unknown) (unknown) Patient: (units (o wn) date) Tiffany Alfaro MR#: unknown) [id number] (unknown) (no (unknown) (unknown) Plt Count (units (unkn own) date) (150-400) X103/uL unknown) (unknown) (no (unknown) (unknown) Plt Count 169 (units ( unknown) date) (150-400) X103/uL unknown) (unknown) (no (unknown) (unknown) Potassium (units (unkn own) date) (3.4-5.1) mmol/L unknown) (unknown) (no (unknown) (unknown) Potassium 4.3 (units ( unknown) date) (3.4-5.1) mmol/L unknown) (unknown) (no (unknown) (unknown) Prothrombin Time (units (unknown) date) INR Stat unknown) (unknown) (no (unknown) (unknown) Psych (units (unkno wn) date) unknown) (unknown) (no (unknown) (unknown) Psychiatric (units (un known) date) unknown) (unknown) (no (unknown) (unknown) Psychiatric: (units (u nknown) date) Reports anxiety unknown) (unknown) (no (unknown) (unknown) Pulse Oximetry 96 (units (unknown) date) unknown) (unknown) (no (unknown) (unknown) Pulse Oximetry 97 (units (unknown) date) 04/20/22 16:15 unknown) (unknown) (no (unknown) (unknown) Pulse Oximetry 97 (units (unknown) date) 99 98 unknown) (unknown) (no (unknown) (unknown) Pulse Oximetry 98 (units (unknown) date) 95 unknown) (unknown) (no (unknown) (unknown) Pulse Oximetry 98 (units (unknown) date) 97 unknown) (unknown) (no (unknown) (unknown) Pulse Rate 61 (units ( unknown) date) unknown) (unknown) (no (unknown) (unknown) Pulse Rate 66 60 (units (unknown) date) unknown) (unknown) (no (unknown) (unknown) Pulse Rate 68 (units ( unknown) date) unknown) (unknown) (no (unknown) (unknown) Pulse Rate 90 (units ( unknown) date) 04/20/22 16:15 unknown) (unknown) (no (unknown) (unknown) Pulse Rate 90 78 (units (unknown) date) 74 unknown) (unknown) (no (unknown) (unknown) RBC (4.0-5.2) (units ( unknown) date) X106/uL unknown) (unknown) (no (unknown) (unknown) RBC 5.08 (4.0-5.2) (units (unknown) date) X106/uL unknown) (unknown) (no (unknown) (unknown) RDW (11.6-14.8) % (units (unknown) date) unknown) (unknown) (no (unknown) (unknown) RDW 14.3 (units (unkno wn) date) (11.6-14.8) % unknown) (unknown) (no (unknown) (unknown) ROS Unobtainable: (units (unknown) date) All systems unknown) reviewed + are unremarkable except as noted in HPI (unknown) (no (unknown) (unknown) Radiologist's (units ( unknown) date) Impression: unknown) (unknown) (no (unknown) (unknown) Rate: regular rate (units (unknown) date) unknown) (unknown) (no (unknown) (unknown) Related Data (units (u nknown) date) unknown) (unknown) (no (unknown) (unknown) Resp (units (unkno wn) date) unknown) (unknown) (no (unknown) (unknown) Respiratory Rate (units (unknown) date) 14 04/20/22 16:15 unknown) (unknown) (no (unknown) (unknown) Respiratory Rate (units (unknown) date) 14 22 22 unknown) (unknown) (no (unknown) (unknown) Respiratory Rate (units (unknown) date) 20 21 unknown) (unknown) (no (unknown) (unknown) Respiratory Rate (units (unknown) date) 20 unknown) (unknown) (no (unknown) (unknown) Respiratory Rate (units (unknown) date) 22 unknown) (unknown) (no (unknown) (unknown) Respiratory (units (un known) date) unknown) (unknown) (no (unknown) (unknown) Respiratory: (units (u nknown) date) Denies cough and unknown) Reports dyspnea on exertion (unknown) (no (unknown) (unknown) Result diagrams: (units (unknown) date) unknown) (unknown) (no (unknown) (unknown) Review of Systems (units (unknown) date) unknown) (unknown) (no (unknown) (unknown) Rhythm: regular (units (unknown) date) rhythm unknown) (unknown) (no (unknown) (unknown) Signed By: (units (unk nown) date) unknown) (unknown) (no (unknown) (unknown) Skin (units (unkno wn) date) unknown) (unknown) (no (unknown) (unknown) Skin/Breast: (units (u nknown) date) Denies lesions and unknown) Denies rash (unknown) (no (unknown) (unknown) Smoking Status: (units (unknown) date) Current every day unknown) smoker (unknown) (no (unknown) (unknown) Social History (units (unknown) date) (Reviewed 04/20/22 unknown) @ 18:25 by Joseph Samuels MD) (unknown) (no (unknown) (unknown) Sodium (137-145) (units (unknown) date) mmol/L unknown) (unknown) (no (unknown) (unknown) Sodium 140 (units (unk nown) date) (137-145) mmol/L unknown) (unknown) (no (unknown) (unknown) Sodium Chloride (units (unknown) date) (Normal Saline unknown) 0.9%) 1,000 mls @ 150 mls/hr IV CONT ELENO (unknown) (no (unknown) (unknown) Source: patient (units (unknown) date) unknown) (unknown) (no (unknown) (unknown) Stated Complaint: (units (unknown) date) cardiac issues unknown) (unknown) (no (unknown) (unknown) Stop: 04/20/22 (units (unknown) date) 17:09 unknown) (unknown) (no (unknown) (unknown) Stop: 04/20/22 (units (unknown) date) 18:16 unknown) (unknown) (no (unknown) (unknown) Stop: 04/20/22 (units (unknown) date) 18:17 unknown) (unknown) (no (unknown) (unknown) Substance Use (units ( unknown) date) Type: does not use unknown) (unknown) (no (unknown) (unknown) Surgical History (units (unknown) date) (Updated 04/20/22 @ unknown) 18:26 by Joseph Samuels MD) (unknown) (no (unknown) (unknown) Temperature 97.1 F (units (unknown) date) L 04/20/22 16:15 unknown) (unknown) (no (unknown) (unknown) Temperature 97.1 F (units (unknown) date) L unknown) (unknown) (no (unknown) (unknown) Temperature (units (un known) date) unknown) (unknown) (no (unknown) (unknown) The patient is not (units (unknown) date) feel wall for about unknown) 5 days. She complains of weakness. She (unknown) (no (unknown) (unknown) Throat: posterior (units (unknown) date) oropharynx normal unknown) (unknown) (no (unknown) (unknown) Time Seen by (units (u nknown) date) Provider: 04/20/22 unknown) 16:48 (unknown) (no (unknown) (unknown) Time includes (units ( unknown) date) initial assessment unknown) the patient, review of records from outside (unknown) (no (unknown) (unknown) Total Bilirubin (units (unknown) date) (0.2-1.3) mg/dL unknown) (unknown) (no (unknown) (unknown) Total Bilirubin (units (unknown) date) 0.5 (0.2-1.3) mg/dL unknown) (unknown) (no (unknown) (unknown) Total Creatine (units (unknown) date) Kinase (30-135) U/L unknown) (unknown) (no (unknown) (unknown) Total Creatine (units (unknown) date) Kinase 29 L unknown) (30-135) U/L (unknown) (no (unknown) (unknown) Total Critical (units (unknown) date) Care Time: 50 unknown) (unknown) (no (unknown) (unknown) Total Protein (units ( unknown) date) (6.3-8.2) g/dL unknown) (unknown) (no (unknown) (unknown) Total Protein 8.1 (units (unknown) date) (6.3-8.2) g/dL unknown) (unknown) (no (unknown) (unknown) Troponin + CK (units ( unknown) date) Cardiac Panel Stat unknown) (unknown) (no (unknown) (unknown) Troponin I < 0.012 (units (unknown) date) (0.01-0.034) ng/mL unknown) (unknown) (no (unknown) (unknown) Troponin I (units (unk nown) date) (0.01-0.034) ng/mL unknown) (unknown) (no (unknown) (unknown) Vital Signs - 8 hr (units (unknown) date) unknown) (unknown) (no (unknown) (unknown) Vital Signs (units (un known) date) unknown) (unknown) (no (unknown) (unknown) Vital signs: (units (u nknown) date) unknown) (unknown) (no (unknown) (unknown) WBC (4.5-11.0) (units (unknown) date) X103/uL unknown) (unknown) (no (unknown) (unknown) WBC 9.3 (4.5-11.0) (units (unknown) date) X103/uL unknown) (unknown) (no (unknown) (unknown) XR chest 1V Stat (units (unknown) date) unknown) (unknown) (no (unknown) (unknown) [Embedded Image (units (unknown) date) Not Available] unknown) (unknown) (no (unknown) (unknown) agreed to (units (unkn own) date) admission. The unknown) intent would be to do a stress test on the patient. (unknown) (no (unknown) (unknown) alcohol intake (units (unknown) date) frequency: unknown) holidays/special occasions only (unknown) (no (unknown) (unknown) almost passed out. (units (unknown) date) She had a similar unknown) event today. She was seen at a nearby (unknown) (no (unknown) (unknown) and below (units (unkn own) date) unknown) (unknown) (no (unknown) (unknown) and thyroid (units (un known) date) medications. She unknown) denies recent illness. She felt like she could (unknown) (no (unknown) (unknown) anterior IA. no (units (unknown) date) ectopy. No acute ST unknown) elevation. ) (unknown) (no (unknown) (unknown) bradycardia rate (units (unknown) date) 57 beats per unknown) minute. Left axis deviation. Possible old (unknown) (no (unknown) (unknown) consistent chest (units (unknown) date) discomfort dyspnea unknown) raise concerns for acute coronary syndrome. (unknown) (no (unknown) (unknown) continues to not (units (unknown) date) feel well. She has unknown) weakness. She had mild discomfort in the (unknown) (no (unknown) (unknown) deficits (units (unkno wn) date) unknown) (unknown) (no (unknown) (unknown) diaphoresis. She (units (unknown) date) has no confusion, unknown) no speech changes, no vision deficits, and (unknown) (no (unknown) (unknown) discussed the (units ( unknown) date) patient's situation unknown) with the hospitalist, Dr. Wise. He has (unknown) (no (unknown) (unknown) exertion (units (unkno wn) date) unknown) (unknown) (no (unknown) (unknown) experienced chest (units (unknown) date) pain or back pain. unknown) She had an episode 4 days ago of near (unknown) (no (unknown) (unknown) facility, review (units (unknown) date) of x-ray, EKG and unknown) lab data. The treatment plan was discussed (unknown) (no (unknown) (unknown) fatigue, Denies (units (unknown) date) fever(s), Reports unknown) lethargy, Denies malaise and Reports weakness (unknown) (no (unknown) (unknown) has dyspnea with (units (unknown) date) exertion. She unknown) currently has left shoulder pain. She has not (unknown) (no (unknown) (unknown) hospital, cleared (units (unknown) date) and sent home. unknown) Cardiac evaluation head CT were normal. She (unknown) (no (unknown) (unknown) left upper (units (unk nown) date) shoulder. She has unknown) dyspnea with exertion. She does not have (unknown) (no (unknown) (unknown) no focal numbness (units (unknown) date) or weakness. She is unknown) compliant with losartan for hypertension (unknown) (no (unknown) (unknown) palpation or (units (u nknown) date) shoulder motion. unknown) (unknown) (no (unknown) (unknown) pass out while in (units (unknown) date) triage. unknown) (unknown) (no (unknown) (unknown) pressure and (units (u nknown) date) Denies sore throat unknown) (unknown) (no (unknown) (unknown) shoulder pain, I (units (unknown) date) did give her unknown) nitroglycerin, she has received aspirin. I (unknown) (no (unknown) (unknown) syncope. She was (units (unknown) date) having lunch with unknown) her friends, she became lightheaded and (unknown) (no (unknown) (unknown) treatment thus (units (unknown) date) far. I have unknown) medicated with Ativan for anxiety. With the left (unknown) (no (unknown) (unknown) with the patient, (units (unknown) date) as well as the unknown) accepting hospitalist. Result panel 12 (unknown) (no (unknown) (unknown) (no value) (units (unk nown) date) unknown) (unknown) (no (unknown) (unknown) (past 8 hours): (units (unknown) date) unknown) (unknown) (no (unknown) (unknown) 04/20/22 (units (unkno wn) date) 04/20/22 04/20/22 unknown) (unknown) (no (unknown) (unknown) 04/20/22 16:22 (units (unknown) date) unknown) (unknown) (no (unknown) (unknown) 04/20/22 (units (unkno wn) date) unknown) (unknown) (no (unknown) (unknown) 16:15 04/20/22 (units (unknown) date) unknown) (unknown) (no (unknown) (unknown) 16:20 16:22 (units (un known) date) 16:22 unknown) (unknown) (no (unknown) (unknown) 16:22 (units (unkno wn) date) unknown) (unknown) (no (unknown) (unknown) 16:43 04/20/22 (units (unknown) date) unknown) (unknown) (no (unknown) (unknown) 17:15 (units (unkno wn) date) unknown) (unknown) (no (unknown) (unknown) 17:16 04/20/22 (units (unknown) date) unknown) (unknown) (no (unknown) (unknown) 17:35 (units (unkno wn) date) unknown) (unknown) (no (unknown) (unknown) 17:43 04/20/22 (units (unknown) date) unknown) (unknown) (no (unknown) (unknown) 18:00 (units (unkno wn) date) unknown) (unknown) (no (unknown) (unknown) 18:01 04/20/22 (units (unknown) date) unknown) (unknown) (no (unknown) (unknown) 18:27 (units (unkno wn) date) unknown) (unknown) (no (unknown) (unknown) 4900 (units (unkno wn) date) unknown) (unknown) (no (unknown) (unknown) ALT 12 (units (unkno wn) date) unknown) (unknown) (no (unknown) (unknown) ALT (units (unkno wn) date) unknown) (unknown) (no (unknown) (unknown) APTT 28 (units (unkno wn) date) unknown) (unknown) (no (unknown) (unknown) APTT (units (unkno wn) date) unknown) (unknown) (no (unknown) (unknown) AST 25 (units (unkno wn) date) unknown) (unknown) (no (unknown) (unknown) AST (units (unkno wn) date) unknown) (unknown) (no (unknown) (unknown) Age/Sex: 81 / F (units (unknown) date) unknown) (unknown) (no (unknown) (unknown) Albumin 4.6 (units (un known) date) unknown) (unknown) (no (unknown) (unknown) Albumin (units (unkno wn) date) unknown) (unknown) (no (unknown) (unknown) Albumin/Globulin (units (unknown) date) Ratio 1.3 unknown) (unknown) (no (unknown) (unknown) Albumin/Globulin (units (unknown) date) Ratio unknown) (unknown) (no (unknown) (unknown) Alkaline (units (unkno wn) date) Phosphatase 68 unknown) (unknown) (no (unknown) (unknown) Alkaline (units (unkno wn) date) Phosphatase unknown) (unknown) (no (unknown) (unknown) Allergies (units (unkn own) date) unknown) (unknown) (no (unknown) (unknown) Allergy/AdvReac (units (unknown) date) Type Severity unknown) Reaction Status Date / Time (unknown) (no (unknown) (unknown) Assessment + (units (u nknown) date) Plan unknown) (unknown) (no (unknown) (unknown) BUN 17 (units (unkno wn) date) unknown) (unknown) (no (unknown) (unknown) BUN (units (unkno wn) date) unknown) (unknown) (no (unknown) (unknown) BUN/Creatinine (units (unknown) date) Ratio 20.5 unknown) (unknown) (no (unknown) (unknown) BUN/Creatinine (units (unknown) date) Ratio unknown) (unknown) (no (unknown) (unknown) Baso # (Auto) (units ( unknown) date) 100 unknown) (unknown) (no (unknown) (unknown) Baso # (Auto) (units ( unknown) date) unknown) (unknown) (no (unknown) (unknown) Baso % (Auto) (units ( unknown) date) 1.5 unknown) (unknown) (no (unknown) (unknown) Baso % (Auto) (units ( unknown) date) unknown) (unknown) (no (unknown) (unknown) Been Physically (units (unknown) date) Hurt or No unknown) (unknown) (no (unknown) (unknown) Blood Pressure (units (unknown) date) 183/103 H 208/101 unknown) H (unknown) (no (unknown) (unknown) Blood Pressure (units (unknown) date) 185/84 H 185/84 H unknown) (unknown) (no (unknown) (unknown) Blood Pressure (units (unknown) date) 193/97 H unknown) (unknown) (no (unknown) (unknown) Blood Pressure (units (unknown) date) 217/102 H unknown) (unknown) (no (unknown) (unknown) CK-MB (CK-2) Rel (units (unknown) date) Index TNP unknown) (unknown) (no (unknown) (unknown) CK-MB (CK-2) Rel (units (unknown) date) Index unknown) (unknown) (no (unknown) (unknown) CK-MB (CK-2) TNP (units (unknown) date) unknown) (unknown) (no (unknown) (unknown) CK-MB (CK-2) (units (u nknown) date) unknown) (unknown) (no (unknown) (unknown) Calcium 9.3 (units (un known) date) unknown) (unknown) (no (unknown) (unknown) Calcium (units (unkno wn) date) unknown) (unknown) (no (unknown) (unknown) Carbon Dioxide (units (unknown) date) 26 unknown) (unknown) (no (unknown) (unknown) Carbon Dioxide (units (unknown) date) unknown) (unknown) (no (unknown) (unknown) Cataracts, (units (unk nown) date) bilateral unknown) (unknown) (no (unknown) (unknown) Chief complaint: (units (unknown) date) cardiac issues unknown) (unknown) (no (unknown) (unknown) Chloride 105 (units (u nknown) date) unknown) (unknown) (no (unknown) (unknown) Chloride (units (unkno wn) date) unknown) (unknown) (no (unknown) (unknown) Creatinine 0.83 (units (unknown) date) unknown) (unknown) (no (unknown) (unknown) Creatinine (units (unk nown) date) unknown) (unknown) (no (unknown) (unknown) Critical Care (units ( unknown) date) time: unknown) (unknown) (no (unknown) (unknown) D-Dimer 728 H (units ( unknown) date) unknown) (unknown) (no (unknown) (unknown) D-Dimer (units (unkno wn) date) unknown) (unknown) (no (unknown) (unknown) : 1940 (units (unknown) date) Acct:[id number] unknown) (unknown) (no (unknown) (unknown) Date Patient (units (u nknown) date) Seen: 04/20/22 unknown) (unknown) (no (unknown) (unknown) Date of Service: (units (unknown) date) 04/20/22 unknown) (unknown) (no (unknown) (unknown) Environment (units (un known) date) unknown) (unknown) (no (unknown) (unknown) Eos # (Auto) 100 (units (unknown) date) unknown) (unknown) (no (unknown) (unknown) Eos # (Auto) (units (u nknown) date) unknown) (unknown) (no (unknown) (unknown) Eos % (Auto) 1.1 (units (unknown) date) L unknown) (unknown) (no (unknown) (unknown) Eos % (Auto) (units (u nknown) date) unknown) (unknown) (no (unknown) (unknown) Estimated GFR > (units (unknown) date) 60 unknown) (unknown) (no (unknown) (unknown) Estimated GFR (units ( unknown) date) unknown) (unknown) (no (unknown) (unknown) Exam (units (unkno wn) date) unknown) (unknown) (no (unknown) (unknown) Family + Social (units (unknown) date) History unknown) (unknown) (no (unknown) (unknown) Family History (units (unknown) date) (Updated 04/20/22 unknown) @ 18:25 by Joseph Samuels MD) (unknown) (no (unknown) (unknown) Feels Safe in (units ( unknown) date) Current Yes unknown) (unknown) (no (unknown) (unknown) Globulin 3.5 (units (u nknown) date) unknown) (unknown) (no (unknown) (unknown) Globulin (units (unkno wn) date) unknown) (unknown) (no (unknown) (unknown) Glucose 85 (units (unk nown) date) unknown) (unknown) (no (unknown) (unknown) Glucose (units (unkno wn) date) unknown) (unknown) (no (unknown) (unknown) H/O: (units (unkno wn) date) hysterectomy unknown) (unknown) (no (unknown) (unknown) Hct 45.6 (units (unkno wn) date) unknown) (unknown) (no (unknown) (unknown) Hct (units (unkno wn) date) unknown) (unknown) (no (unknown) (unknown) Hgb 15.2 (units (unkno wn) date) unknown) (unknown) (no (unknown) (unknown) Hgb (units (unkno wn) date) unknown) (unknown) (no (unknown) (unknown) History + (units (unkn own) date) Physical Report unknown) (unknown) (no (unknown) (unknown) History of (units (unk nown) date) Present Illness unknown) (unknown) (no (unknown) (unknown) Home Medications (units (unknown) date) and Allergies unknown) (unknown) (no (unknown) (unknown) Hypertension (units (u nknown) date) unknown) (unknown) (no (unknown) (unknown) Hypothyroidism (units (unknown) date) unknown) (unknown) (no (unknown) (unknown) I spent a total (units (unknown) date) of [] minutes of unknown) critical care time on this patient's care (unknown) (no (unknown) (unknown) INR 1.1 (units (unkno wn) date) unknown) (unknown) (no (unknown) (unknown) INR (units (unkno wn) date) unknown) (unknown) (no (unknown) (unknown) [facility] (units (unknown) date) [address] unknown) [place] [address] (unknown) (no (unknown) (unknown) Laboratory (units (unk nown) date) Results - last 24 unknown) hr (unknown) (no (unknown) (unknown) Labs (units (unkno wn) date) unknown) (unknown) (no (unknown) (unknown) Labs: (units (unkno wn) date) unknown) (unknown) (no (unknown) (unknown) Tiffany Alfaro is an (units (unknown) date) 81yo F with PMH unknown) of HTN, HLD and hypothryoidism who presents (unknown) (no (unknown) (unknown) Lipase 112 (units (unk nown) date) unknown) (unknown) (no (unknown) (unknown) Lipase (units (unkno wn) date) unknown) (unknown) (no (unknown) (unknown) Lymph # (Auto) (units (unknown) date) 3100 unknown) (unknown) (no (unknown) (unknown) Lymph # (Auto) (units (unknown) date) unknown) (unknown) (no (unknown) (unknown) Lymph % (Auto) (units (unknown) date) 33.3 unknown) (unknown) (no (unknown) (unknown) Lymph % (Auto) (units (unknown) date) unknown) (unknown) (no (unknown) (unknown) MCH 30.0 (units (unkno wn) date) unknown) (unknown) (no (unknown) (unknown) MCH (units (unkno wn) date) unknown) (unknown) (no (unknown) (unknown) MCHC 33.4 (units (unkn own) date) unknown) (unknown) (no (unknown) (unknown) MCHC (units (unkno wn) date) unknown) (unknown) (no (unknown) (unknown) MCV 89.7 (units (unkno wn) date) unknown) (unknown) (no (unknown) (unknown) MCV (units (unkno wn) date) unknown) (unknown) (no (unknown) (unknown) Magnesium 2.0 (units ( unknown) date) unknown) (unknown) (no (unknown) (unknown) Magnesium (units (unkn own) date) unknown) (unknown) (no (unknown) (unknown) Medical History (units (unknown) date) (Updated 04/20/22 unknown) @ 18:38 by Joseph Samuels MD) (unknown) (no (unknown) (unknown) Meds (units (unkno wn) date) unknown) (unknown) (no (unknown) (unknown) [place] # (Auto) (units ( unknown) date) 500 unknown) (unknown) (no (unknown) (unknown) [place] # (Auto) (units ( unknown) date) unknown) (unknown) (no (unknown) (unknown) [place] % (Auto) (units ( unknown) date) 5.5 unknown) (unknown) (no (unknown) (unknown) [place] % (Auto) (units ( unknown) date) unknown) (unknown) (no (unknown) (unknown) Narrative: (units (unk nown) date) unknown) (unknown) (no (unknown) (unknown) Neut # (Auto) (units ( unknown) date) 5400 unknown) (unknown) (no (unknown) (unknown) Neut # (Auto) (units ( unknown) date) unknown) (unknown) (no (unknown) (unknown) Neut % (Auto) (units ( unknown) date) 58.6 unknown) (unknown) (no (unknown) (unknown) Neut % (Auto) (units ( unknown) date) unknown) (unknown) (no (unknown) (unknown) No Known Drug (units ( unknown) date) Allergies Allergy unknown) Verified 04/20/22 16:15 (unknown) (no (unknown) (unknown) Objective (units (unkn own) date) unknown) (unknown) (no (unknown) (unknown) Other Cardiac (units ( unknown) date) disease unknown) (unknown) (no (unknown) (unknown) Oxygen Delivery (units (unknown) date) Method Room Air unknown) Room Air (unknown) (no (unknown) (unknown) Oxygen Delivery (units (unknown) date) Method Room Air unknown) (unknown) (no (unknown) (unknown) Oxygen Delivery (units (unknown) date) Method unknown) (unknown) (no (unknown) (unknown) PT 12.2 (units (unkno wn) date) unknown) (unknown) (no (unknown) (unknown) PT (units (unkno wn) date) unknown) (unknown) (no (unknown) (unknown) Patient History (units (unknown) date) unknown) (unknown) (no (unknown) (unknown) Patient: (units (unkno wn) date) Tiffany Alfaro MR#: unknown) [id number] (unknown) (no (unknown) (unknown) Plt Count 169 (units ( unknown) date) unknown) (unknown) (no (unknown) (unknown) Plt Count (units (unkn own) date) unknown) (unknown) (no (unknown) (unknown) Potassium 4.3 (units ( unknown) date) unknown) (unknown) (no (unknown) (unknown) Potassium (units (unkn own) date) unknown) (unknown) (no (unknown) (unknown) Provider: (units (unkn own) date) Viktor Wise unknown) D.O. (unknown) (no (unknown) (unknown) Pulse Oximetry (units (unknown) date) 96 unknown) (unknown) (no (unknown) (unknown) Pulse Oximetry (units (unknown) date) 97 99 98 unknown) (unknown) (no (unknown) (unknown) Pulse Oximetry (units (unknown) date) 98 95 unknown) (unknown) (no (unknown) (unknown) Pulse Oximetry (units (unknown) date) 98 97 unknown) (unknown) (no (unknown) (unknown) Pulse Rate 61 66 (units (unknown) date) unknown) (unknown) (no (unknown) (unknown) Pulse Rate 66 60 (units (unknown) date) unknown) (unknown) (no (unknown) (unknown) Pulse Rate 68 (units ( unknown) date) unknown) (unknown) (no (unknown) (unknown) Pulse Rate 90 78 (units (unknown) date) 74 unknown) (unknown) (no (unknown) (unknown) RBC 5.08 (units (unkno wn) date) unknown) (unknown) (no (unknown) (unknown) RBC (units (unkno wn) date) unknown) (unknown) (no (unknown) (unknown) RDW 14.3 (units (unkno wn) date) unknown) (unknown) (no (unknown) (unknown) RDW (units (unkno wn) date) unknown) (unknown) (no (unknown) (unknown) Respiratory Rate (units (unknown) date) 14 22 22 unknown) (unknown) (no (unknown) (unknown) Respiratory Rate (units (unknown) date) 20 21 unknown) (unknown) (no (unknown) (unknown) Respiratory Rate (units (unknown) date) 20 unknown) (unknown) (no (unknown) (unknown) Respiratory Rate (units (unknown) date) 22 unknown) (unknown) (no (unknown) (unknown) Result Diagrams: (units (unknown) date) unknown) (unknown) (no (unknown) (unknown) Safety + (units (unkno wn) date) Behavioral: unknown) (unknown) (no (unknown) (unknown) Signed By: (units (unk nown) date) unknown) (unknown) (no (unknown) (unknown) Smoking Status (units (unknown) date) Current every day unknown) smoker (unknown) (no (unknown) (unknown) Sodium 140 (units (unk nown) date) unknown) (unknown) (no (unknown) (unknown) Sodium (units (unkno wn) date) unknown) (unknown) (no (unknown) (unknown) Substance Use (units ( unknown) date) Type does not use unknown) (unknown) (no (unknown) (unknown) Surgical History (units (unknown) date) (Updated 04/20/22 unknown) @ 18:26 by Joseph Samuels MD) (unknown) (no (unknown) (unknown) Temperature 97.1 (units (unknown) date) F L unknown) (unknown) (no (unknown) (unknown) Temperature (units (un known) date) unknown) (unknown) (no (unknown) (unknown) Threatened By a (units (unknown) date) Person unknown) (unknown) (no (unknown) (unknown) Time Patient (units (u nknown) date) Seen: 18:41 unknown) (unknown) (no (unknown) (unknown) Time Spent With (units (unknown) date) Patient unknown) (unknown) (no (unknown) (unknown) Tobacco + (units (unkn own) date) Substance use: unknown) (unknown) (no (unknown) (unknown) Total Bilirubin (units (unknown) date) 0.5 unknown) (unknown) (no (unknown) (unknown) Total Bilirubin (units (unknown) date) unknown) (unknown) (no (unknown) (unknown) Total Creatine (units (unknown) date) Kinase 29 L unknown) (unknown) (no (unknown) (unknown) Total Creatine (units (unknown) date) Kinase unknown) (unknown) (no (unknown) (unknown) Total Protein (units ( unknown) date) 8.1 unknown) (unknown) (no (unknown) (unknown) Total Protein (units ( unknown) date) unknown) (unknown) (no (unknown) (unknown) Troponin I < (units (u nknown) date) 0.012 unknown) (unknown) (no (unknown) (unknown) Troponin I (units (unk nown) date) unknown) (unknown) (no (unknown) (unknown) Vital Signs (units (un known) date) unknown) (unknown) (no (unknown) (unknown) WBC 9.3 (units (unkno wn) date) unknown) (unknown) (no (unknown) (unknown) WBC (units (unkno wn) date) unknown) (unknown) (no (unknown) (unknown) [Embedded Image (units (unknown) date) Not Available] unknown) (unknown) (no (unknown) (unknown) alcohol intake (units (unknown) date) frequency unknown) holiday/special occasion (unknown) (no (unknown) (unknown) today; this time (units (unknown) date) is exclusive of unknown) procedural time. (unknown) (no (unknown) (unknown) with about 1 (units (u nknown) date) week of severe unknown) fatigue, Result panel 13 (unknown) (no (unknown) (unknown) (no value) (units (unk nown) date) unknown) (unknown) (no (unknown) (unknown) (past 8 hours): (units (unknown) date) unknown) (unknown) (no (unknown) (unknown) 04/20/22 (units (unkno wn) date) 04/20/22 04/20/22 unknown) (unknown) (no (unknown) (unknown) 04/20/22 16:22 (units (unknown) date) unknown) (unknown) (no (unknown) (unknown) 04/20/22 (units (unkno wn) date) unknown) (unknown) (no (unknown) (unknown) 16:15 04/20/22 (units (unknown) date) unknown) (unknown) (no (unknown) (unknown) 16:20 16:22 (units (un known) date) 16:22 unknown) (unknown) (no (unknown) (unknown) 16:22 (units (unkno wn) date) unknown) (unknown) (no (unknown) (unknown) 16:43 04/20/22 (units (unknown) date) unknown) (unknown) (no (unknown) (unknown) 17:15 (units (unkno wn) date) unknown) (unknown) (no (unknown) (unknown) 17:16 04/20/22 (units (unknown) date) unknown) (unknown) (no (unknown) (unknown) 17:35 (units (unkno wn) date) unknown) (unknown) (no (unknown) (unknown) 17:43 04/20/22 (units (unknown) date) unknown) (unknown) (no (unknown) (unknown) 18:00 (units (unkno wn) date) unknown) (unknown) (no (unknown) (unknown) 18:01 04/20/22 (units (unknown) date) unknown) (unknown) (no (unknown) (unknown) 18:27 (units (unkno wn) date) unknown) (unknown) (no (unknown) (unknown) 4900 (units (unkno wn) date) unknown) (unknown) (no (unknown) (unknown) ALT 12 (units (unkno wn) date) unknown) (unknown) (no (unknown) (unknown) ALT (units (unkno wn) date) unknown) (unknown) (no (unknown) (unknown) APTT 28 (units (unkno wn) date) unknown) (unknown) (no (unknown) (unknown) APTT (units (unkno wn) date) unknown) (unknown) (no (unknown) (unknown) AST 25 (units (unkno wn) date) unknown) (unknown) (no (unknown) (unknown) AST (units (unkno wn) date) unknown) (unknown) (no (unknown) (unknown) Age/Sex: 81 / F (units (unknown) date) unknown) (unknown) (no (unknown) (unknown) Albumin 4.6 (units (un known) date) unknown) (unknown) (no (unknown) (unknown) Albumin (units (unkno wn) date) unknown) (unknown) (no (unknown) (unknown) Albumin/Globulin (units (unknown) date) Ratio 1.3 unknown) (unknown) (no (unknown) (unknown) Albumin/Globulin (units (unknown) date) Ratio unknown) (unknown) (no (unknown) (unknown) Alkaline (units (unkno wn) date) Phosphatase 68 unknown) (unknown) (no (unknown) (unknown) Alkaline (units (unkno wn) date) Phosphatase unknown) (unknown) (no (unknown) (unknown) Allergies (units (unkn own) date) unknown) (unknown) (no (unknown) (unknown) Allergy/AdvReac (units (unknown) date) Type Severity unknown) Reaction Status Date / Time (unknown) (no (unknown) (unknown) Assessment + (units (u nknown) date) Plan unknown) (unknown) (no (unknown) (unknown) BUN 17 (units (unkno wn) date) unknown) (unknown) (no (unknown) (unknown) BUN (units (unkno wn) date) unknown) (unknown) (no (unknown) (unknown) BUN/Creatinine (units (unknown) date) Ratio 20.5 unknown) (unknown) (no (unknown) (unknown) BUN/Creatinine (units (unknown) date) Ratio unknown) (unknown) (no (unknown) (unknown) Baso # (Auto) (units ( unknown) date) 100 unknown) (unknown) (no (unknown) (unknown) Baso # (Auto) (units ( unknown) date) unknown) (unknown) (no (unknown) (unknown) Baso % (Auto) (units ( unknown) date) 1.5 unknown) (unknown) (no (unknown) (unknown) Baso % (Auto) (units ( unknown) date) unknown) (unknown) (no (unknown) (unknown) Been Physically (units (unknown) date) Hurt or No unknown) (unknown) (no (unknown) (unknown) Blood Pressure (units (unknown) date) 183/103 H 208/101 unknown) H (unknown) (no (unknown) (unknown) Blood Pressure (units (unknown) date) 185/84 H 185/84 H unknown) (unknown) (no (unknown) (unknown) Blood Pressure (units (unknown) date) 193/97 H unknown) (unknown) (no (unknown) (unknown) Blood Pressure (units (unknown) date) 217/102 H unknown) (unknown) (no (unknown) (unknown) CK-MB (CK-2) Rel (units (unknown) date) Index TNP unknown) (unknown) (no (unknown) (unknown) CK-MB (CK-2) Rel (units (unknown) date) Index unknown) (unknown) (no (unknown) (unknown) CK-MB (CK-2) TNP (units (unknown) date) unknown) (unknown) (no (unknown) (unknown) CK-MB (CK-2) (units (u nknown) date) unknown) (unknown) (no (unknown) (unknown) Calcium 9.3 (units (un known) date) unknown) (unknown) (no (unknown) (unknown) Calcium (units (unkno wn) date) unknown) (unknown) (no (unknown) (unknown) Carbon Dioxide (units (unknown) date) 26 unknown) (unknown) (no (unknown) (unknown) Carbon Dioxide (units (unknown) date) unknown) (unknown) (no (unknown) (unknown) Cataracts, (units (unk nown) date) bilateral unknown) (unknown) (no (unknown) (unknown) Chief complaint: (units (unknown) date) cardiac issues unknown) (unknown) (no (unknown) (unknown) Chloride 105 (units (u nknown) date) unknown) (unknown) (no (unknown) (unknown) Chloride (units (unkno wn) date) unknown) (unknown) (no (unknown) (unknown) Creatinine 0.83 (units (unknown) date) unknown) (unknown) (no (unknown) (unknown) Creatinine (units (unk nown) date) unknown) (unknown) (no (unknown) (unknown) Critical Care (units ( unknown) date) time: unknown) (unknown) (no (unknown) (unknown) D-Dimer 728 H (units ( unknown) date) unknown) (unknown) (no (unknown) (unknown) D-Dimer (units (unkno wn) date) unknown) (unknown) (no (unknown) (unknown) : 1940 (units (unknown) date) Acct:[id number] unknown) (unknown) (no (unknown) (unknown) Date Patient (units (u nknown) date) Seen: 04/20/22 unknown) (unknown) (no (unknown) (unknown) Date of Service: (units (unknown) date) 04/20/22 unknown) (unknown) (no (unknown) (unknown) Environment (units (un known) date) unknown) (unknown) (no (unknown) (unknown) Eos # (Auto) 100 (units (unknown) date) unknown) (unknown) (no (unknown) (unknown) Eos # (Auto) (units (u nknown) date) unknown) (unknown) (no (unknown) (unknown) Eos % (Auto) 1.1 (units (unknown) date) L unknown) (unknown) (no (unknown) (unknown) Eos % (Auto) (units (u nknown) date) unknown) (unknown) (no (unknown) (unknown) Estimated GFR > (units (unknown) date) 60 unknown) (unknown) (no (unknown) (unknown) Estimated GFR (units ( unknown) date) unknown) (unknown) (no (unknown) (unknown) Exam (units (unkno wn) date) unknown) (unknown) (no (unknown) (unknown) Family + Social (units (unknown) date) History unknown) (unknown) (no (unknown) (unknown) Family History (units (unknown) date) (Updated 04/20/22 unknown) @ 18:25 by Joseph Samuels MD) (unknown) (no (unknown) (unknown) Feels Safe in (units ( unknown) date) Current Yes unknown) (unknown) (no (unknown) (unknown) Globulin 3.5 (units (u nknown) date) unknown) (unknown) (no (unknown) (unknown) Globulin (units (unkno wn) date) unknown) (unknown) (no (unknown) (unknown) Glucose 85 (units (unk nown) date) unknown) (unknown) (no (unknown) (unknown) Glucose (units (unkno wn) date) unknown) (unknown) (no (unknown) (unknown) H/O: (units (unkno wn) date) hysterectomy unknown) (unknown) (no (unknown) (unknown) Hct 45.6 (units (unkno wn) date) unknown) (unknown) (no (unknown) (unknown) Hct (units (unkno wn) date) unknown) (unknown) (no (unknown) (unknown) Hgb 15.2 (units (unkno wn) date) unknown) (unknown) (no (unknown) (unknown) Hgb (units (unkno wn) date) unknown) (unknown) (no (unknown) (unknown) History + (units (unkn own) date) Physical Report unknown) (unknown) (no (unknown) (unknown) History of (units (unk nown) date) Present Illness unknown) (unknown) (no (unknown) (unknown) Home Medications (units (unknown) date) and Allergies unknown) (unknown) (no (unknown) (unknown) Hypertension (units (u nknown) date) unknown) (unknown) (no (unknown) (unknown) Hypothyroidism (units (unknown) date) unknown) (unknown) (no (unknown) (unknown) I spent a total (units (unknown) date) of [] minutes of unknown) critical care time on this patient's care (unknown) (no (unknown) (unknown) INR 1.1 (units (unkno wn) date) unknown) (unknown) (no (unknown) (unknown) INR (units (unkno wn) date) unknown) (unknown) (no (unknown) (unknown) [facility] (units (unknown) date) [address] unknown) [place] [address] (unknown) (no (unknown) (unknown) Laboratory (units (unk nown) date) Results - last 24 unknown) hr (unknown) (no (unknown) (unknown) Labs (units (unkno wn) date) unknown) (unknown) (no (unknown) (unknown) Labs: (units (unkno wn) date) unknown) (unknown) (no (unknown) (unknown) Tiffany Alfaro is an (units (unknown) date) 81yo F with PMH unknown) of HTN, HLD, mild COPD and hypothryoidism who (unknown) (no (unknown) (unknown) Lipase 112 (units (unk nown) date) unknown) (unknown) (no (unknown) (unknown) Lipase (units (unkno wn) date) unknown) (unknown) (no (unknown) (unknown) Lymph # (Auto) (units (unknown) date) 3100 unknown) (unknown) (no (unknown) (unknown) Lymph # (Auto) (units (unknown) date) unknown) (unknown) (no (unknown) (unknown) Lymph % (Auto) (units (unknown) date) 33.3 unknown) (unknown) (no (unknown) (unknown) Lymph % (Auto) (units (unknown) date) unknown) (unknown) (no (unknown) (unknown) MCH 30.0 (units (unkno wn) date) unknown) (unknown) (no (unknown) (unknown) MCH (units (unkno wn) date) unknown) (unknown) (no (unknown) (unknown) MCHC 33.4 (units (unkn own) date) unknown) (unknown) (no (unknown) (unknown) MCHC (units (unkno wn) date) unknown) (unknown) (no (unknown) (unknown) MCV 89.7 (units (unkno wn) date) unknown) (unknown) (no (unknown) (unknown) MCV (units (unkno wn) date) unknown) (unknown) (no (unknown) (unknown) Magnesium 2.0 (units ( unknown) date) unknown) (unknown) (no (unknown) (unknown) Magnesium (units (unkn own) date) unknown) (unknown) (no (unknown) (unknown) Medical History (units (unknown) date) (Updated 04/20/22 unknown) @ 18:38 by Joseph Samuels MD) (unknown) (no (unknown) (unknown) Meds (units (unkno wn) date) unknown) (unknown) (no (unknown) (unknown) [place] # (Auto) (units ( unknown) date) 500 unknown) (unknown) (no (unknown) (unknown) [place] # (Auto) (units ( unknown) date) unknown) (unknown) (no (unknown) (unknown) [place] % (Auto) (units ( unknown) date) 5.5 unknown) (unknown) (no (unknown) (unknown) [place] % (Auto) (units ( unknown) date) unknown) (unknown) (no (unknown) (unknown) Narrative: (units (unk nown) date) unknown) (unknown) (no (unknown) (unknown) Neut # (Auto) (units ( unknown) date) 5400 unknown) (unknown) (no (unknown) (unknown) Neut # (Auto) (units ( unknown) date) unknown) (unknown) (no (unknown) (unknown) Neut % (Auto) (units ( unknown) date) 58.6 unknown) (unknown) (no (unknown) (unknown) Neut % (Auto) (units ( unknown) date) unknown) (unknown) (no (unknown) (unknown) No Known Drug (units ( unknown) date) Allergies Allergy unknown) Verified 04/20/22 16:15 (unknown) (no (unknown) (unknown) Objective (units (unkn own) date) unknown) (unknown) (no (unknown) (unknown) Other Cardiac (units ( unknown) date) disease unknown) (unknown) (no (unknown) (unknown) Oxygen Delivery (units (unknown) date) Method Room Air unknown) Room Air (unknown) (no (unknown) (unknown) Oxygen Delivery (units (unknown) date) Method Room Air unknown) (unknown) (no (unknown) (unknown) Oxygen Delivery (units (unknown) date) Method unknown) (unknown) (no (unknown) (unknown) PT 12.2 (units (unkno wn) date) unknown) (unknown) (no (unknown) (unknown) PT (units (unkno wn) date) unknown) (unknown) (no (unknown) (unknown) Patient History (units (unknown) date) unknown) (unknown) (no (unknown) (unknown) Patient: (units (unkno wn) date) Tiffany Alfaro [place] MR#: unknown) [id number] (unknown) (no (unknown) (unknown) Plt Count 169 (units ( unknown) date) unknown) (unknown) (no (unknown) (unknown) Plt Count (units (unkn own) date) unknown) (unknown) (no (unknown) (unknown) Potassium 4.3 (units ( unknown) date) unknown) (unknown) (no (unknown) (unknown) Potassium (units (unkn own) date) unknown) (unknown) (no (unknown) (unknown) Provider: (units (unkn own) date) Viktor Wise unknown) D.O. (unknown) (no (unknown) (unknown) Pulse Oximetry (units (unknown) date) 96 unknown) (unknown) (no (unknown) (unknown) Pulse Oximetry (units (unknown) date) 97 99 98 unknown) (unknown) (no (unknown) (unknown) Pulse Oximetry (units (unknown) date) 98 95 unknown) (unknown) (no (unknown) (unknown) Pulse Oximetry (units (unknown) date) 98 97 unknown) (unknown) (no (unknown) (unknown) Pulse Rate 61 66 (units (unknown) date) unknown) (unknown) (no (unknown) (unknown) Pulse Rate 66 60 (units (unknown) date) unknown) (unknown) (no (unknown) (unknown) Pulse Rate 68 (units ( unknown) date) unknown) (unknown) (no (unknown) (unknown) Pulse Rate 90 78 (units (unknown) date) 74 unknown) (unknown) (no (unknown) (unknown) RBC 5.08 (units (unkno wn) date) unknown) (unknown) (no (unknown) (unknown) RBC (units (unkno wn) date) unknown) (unknown) (no (unknown) (unknown) RDW 14.3 (units (unkno wn) date) unknown) (unknown) (no (unknown) (unknown) RDW (units (unkno wn) date) unknown) (unknown) (no (unknown) (unknown) Respiratory Rate (units (unknown) date) 14 22 22 unknown) (unknown) (no (unknown) (unknown) Respiratory Rate (units (unknown) date) 20 21 unknown) (unknown) (no (unknown) (unknown) Respiratory Rate (units (unknown) date) 20 unknown) (unknown) (no (unknown) (unknown) Respiratory Rate (units (unknown) date) 22 unknown) (unknown) (no (unknown) (unknown) Result Diagrams: (units (unknown) date) unknown) (unknown) (no (unknown) (unknown) Safety + (units (unkno wn) date) Behavioral: unknown) (unknown) (no (unknown) (unknown) Signed By: (units (unk nown) date) unknown) (unknown) (no (unknown) (unknown) Smoking Status (units (unknown) date) Current every day unknown) smoker (unknown) (no (unknown) (unknown) Sodium 140 (units (unk nown) date) unknown) (unknown) (no (unknown) (unknown) Sodium (units (unkno wn) date) unknown) (unknown) (no (unknown) (unknown) Substance Use (units ( unknown) date) Type does not use unknown) (unknown) (no (unknown) (unknown) Surgical History (units (unknown) date) (Updated 04/20/22 unknown) @ 18:26 by Joseph Samuels MD) (unknown) (no (unknown) (unknown) Temperature 97.1 (units (unknown) date) F L unknown) (unknown) (no (unknown) (unknown) Temperature (units (un known) date) unknown) (unknown) (no (unknown) (unknown) Threatened By a (units (unknown) date) Person unknown) (unknown) (no (unknown) (unknown) Time Patient (units (u nknown) date) Seen: 18:41 unknown) (unknown) (no (unknown) (unknown) Time Spent With (units (unknown) date) Patient unknown) (unknown) (no (unknown) (unknown) Tobacco + (units (unkn own) date) Substance use: unknown) (unknown) (no (unknown) (unknown) Total Bilirubin (units (unknown) date) 0.5 unknown) (unknown) (no (unknown) (unknown) Total Bilirubin (units (unknown) date) unknown) (unknown) (no (unknown) (unknown) Total Creatine (units (unknown) date) Kinase 29 L unknown) (unknown) (no (unknown) (unknown) Total Creatine (units (unknown) date) Kinase unknown) (unknown) (no (unknown) (unknown) Total Protein (units ( unknown) date) 8.1 unknown) (unknown) (no (unknown) (unknown) Total Protein (units ( unknown) date) unknown) (unknown) (no (unknown) (unknown) Troponin I < (units (u nknown) date) 0.012 unknown) (unknown) (no (unknown) (unknown) Troponin I (units (unk nown) date) unknown) (unknown) (no (unknown) (unknown) Vital Signs (units (un known) date) unknown) (unknown) (no (unknown) (unknown) WBC 9.3 (units (unkno wn) date) unknown) (unknown) (no (unknown) (unknown) WBC (units (unkno wn) date) unknown) (unknown) (no (unknown) (unknown) [Embedded Image (units (unknown) date) Not Available] unknown) (unknown) (no (unknown) (unknown) alcohol intake (units (unknown) date) frequency unknown) holiday/special occasion (unknown) (no (unknown) (unknown) presents with (units ( unknown) date) about 1 week of unknown) severe fatigue, LE heaviness, exertional chest (unknown) (no (unknown) (unknown) pressure (units (unkno wn) date) radiating to left unknown) shoulder and SOB. States she hasn't had these (unknown) (no (unknown) (unknown) strong family (units ( unknown) date) history of CAD. unknown) Has smoked up to 1ppd for 60 years. (unknown) (no (unknown) (unknown) symptoms before. (units (unknown) date) Chest pain is unknown) worse with activity and better at rest. She has a (unknown) (no (unknown) (unknown) today; this time (units (unknown) date) is exclusive of unknown) procedural time. Result panel 14 (unknown) (no (unknown) (unknown) (no value) (units (unk nown) date) unknown) (unknown) (no (unknown) (unknown) # acute chest (units ( unknown) date) pain and fatigue unknown) (unknown) (no (unknown) (unknown) # (units (unkno wn) date) hyperlipidemia, unknown) chronic (unknown) (no (unknown) (unknown) # hypertensive (units (unknown) date) urgency unknown) (unknown) (no (unknown) (unknown) # (units (unkno wn) date) hypothyroidism, unknown) chronic (unknown) (no (unknown) (unknown) # tobacco (units (unkn own) date) dependence unknown) (unknown) (no (unknown) (unknown) (past 8 hours): (units (unknown) date) unknown) (unknown) (no (unknown) (unknown) -60 year smoker, (units (unknown) date) currently smoking unknown) 5-6 cigarettes per day (unknown) (no (unknown) (unknown) -BP over 200 (units (u nknown) date) systolic in ED, unknown) patient reports compliance with her home losartan (unknown) (no (unknown) (unknown) -CTA negative (units ( unknown) date) for aortic unknown) dissection and PE (unknown) (no (unknown) (unknown) -at high risk (units ( unknown) date) for CAD with unknown) strong family history, age and smoking history (unknown) (no (unknown) (unknown) -consider adding (units (unknown) date) second agent if unknown) continues to be elevated (unknown) (no (unknown) (unknown) -continue home (units (unknown) date) Synthroid unknown) (unknown) (no (unknown) (unknown) -continue home (units (unknown) date) losartan 25 mg unknown) daily (unknown) (no (unknown) (unknown) -continue home (units (unknown) date) statin unknown) (unknown) (no (unknown) (unknown) -encourage (units (unk nown) date) cessation unknown) (unknown) (no (unknown) (unknown) -hydralazine IV (units (unknown) date) as needed, avoid unknown) labetalol as can alter stress test results (unknown) (no (unknown) (unknown) -initial (units (unkno wn) date) troponin unknown) negative, trend trops. If uptrending start heparin drip. (unknown) (no (unknown) (unknown) -obtain nuclear (units (unknown) date) stress test and unknown) echo, NPO at midnight (unknown) (no (unknown) (unknown) -patient notes (units (unknown) date) chest pain is unknown) exertional, however reproducible on exam (unknown) (no (unknown) (unknown) -start aspirin (units (unknown) date) 81 mg daily unknown) (unknown) (no (unknown) (unknown) -tele (units (unkno wn) date) unknown) (unknown) (no (unknown) (unknown) 04/20/22 (units (unkno wn) date) 04/20/22 04/20/22 unknown) (unknown) (no (unknown) (unknown) 04/20/22 16:22 (units (unknown) date) unknown) (unknown) (no (unknown) (unknown) 04/20/22 1901 (units ( unknown) date) unknown) (unknown) (no (unknown) (unknown) 04/20/22 (units (unkno wn) date) unknown) (unknown) (no (unknown) (unknown) 16:15 04/20/22 (units (unknown) date) unknown) (unknown) (no (unknown) (unknown) 16:20 16:22 (units (un known) date) 16:22 unknown) (unknown) (no (unknown) (unknown) 16:22 (units (unkno wn) date) unknown) (unknown) (no (unknown) (unknown) 16:43 04/20/22 (units (unknown) date) unknown) (unknown) (no (unknown) (unknown) 17:15 (units (unkno wn) date) unknown) (unknown) (no (unknown) (unknown) 17:16 04/20/22 (units (unknown) date) unknown) (unknown) (no (unknown) (unknown) 17:35 (units (unkno wn) date) unknown) (unknown) (no (unknown) (unknown) 17:43 04/20/22 (units (unknown) date) unknown) (unknown) (no (unknown) (unknown) 18:00 (units (unkno wn) date) unknown) (unknown) (no (unknown) (unknown) 18:01 04/20/22 (units (unknown) date) unknown) (unknown) (no (unknown) (unknown) 18:27 (units (unkno wn) date) unknown) (unknown) (no (unknown) (unknown) 208/101 so nitro (units (unknown) date) patch applied. unknown) Labs were unremarkable. (unknown) (no (unknown) (unknown) 4900 (units (unkno wn) date) unknown) (unknown) (no (unknown) (unknown) ABD: soft, (units (unk nown) date) nontender, unknown) nondistended, no organomegaly (unknown) (no (unknown) (unknown) ALT 12 (units (unkno wn) date) unknown) (unknown) (no (unknown) (unknown) ALT (units (unkno wn) date) unknown) (unknown) (no (unknown) (unknown) APTT 28 (units (unkno wn) date) unknown) (unknown) (no (unknown) (unknown) APTT (units (unkno wn) date) unknown) (unknown) (no (unknown) (unknown) AST 25 (units (unkno wn) date) unknown) (unknown) (no (unknown) (unknown) AST (units (unkno wn) date) unknown) (unknown) (no (unknown) (unknown) Age/Sex: 81 / F (units (unknown) date) unknown) (unknown) (no (unknown) (unknown) Albumin 4.6 (units (un known) date) unknown) (unknown) (no (unknown) (unknown) Albumin (units (unkno wn) date) unknown) (unknown) (no (unknown) (unknown) Albumin/Globulin (units (unknown) date) Ratio 1.3 unknown) (unknown) (no (unknown) (unknown) Albumin/Globulin (units (unknown) date) Ratio unknown) (unknown) (no (unknown) (unknown) Alkaline (units (unkno wn) date) Phosphatase 68 unknown) (unknown) (no (unknown) (unknown) Alkaline (units (unkno wn) date) Phosphatase unknown) (unknown) (no (unknown) (unknown) All other (units (unkn own) date) systems reviewed unknown) with the patient and are negative unless otherwise (unknown) (no (unknown) (unknown) Allergies (units (unkn own) date) unknown) (unknown) (no (unknown) (unknown) Allergy/AdvReac (units (unknown) date) Type Severity unknown) Reaction Status Date / Time (unknown) (no (unknown) (unknown) Assessment + (units (u nknown) date) Plan narrative: unknown) (unknown) (no (unknown) (unknown) Assessment + (units (u nknown) date) Plan unknown) (unknown) (no (unknown) (unknown) BUN 17 (units (unkno wn) date) unknown) (unknown) (no (unknown) (unknown) BUN (units (unkno wn) date) unknown) (unknown) (no (unknown) (unknown) BUN/Creatinine (units (unknown) date) Ratio 20.5 unknown) (unknown) (no (unknown) (unknown) BUN/Creatinine (units (unknown) date) Ratio unknown) (unknown) (no (unknown) (unknown) Baso # (Auto) (units ( unknown) date) 100 unknown) (unknown) (no (unknown) (unknown) Baso # (Auto) (units ( unknown) date) unknown) (unknown) (no (unknown) (unknown) Baso % (Auto) (units ( unknown) date) 1.5 unknown) (unknown) (no (unknown) (unknown) Baso % (Auto) (units ( unknown) date) unknown) (unknown) (no (unknown) (unknown) Been Physically (units (unknown) date) Hurt or No unknown) (unknown) (no (unknown) (unknown) Blood Pressure (units (unknown) date) 183/103 H 208/101 unknown) H (unknown) (no (unknown) (unknown) Blood Pressure (units (unknown) date) 185/84 H 185/84 H unknown) (unknown) (no (unknown) (unknown) Blood Pressure (units (unknown) date) 193/97 H unknown) (unknown) (no (unknown) (unknown) Blood Pressure (units (unknown) date) 217/102 H unknown) (unknown) (no (unknown) (unknown) CK-MB (CK-2) Rel (units (unknown) date) Index TNP unknown) (unknown) (no (unknown) (unknown) CK-MB (CK-2) Rel (units (unknown) date) Index unknown) (unknown) (no (unknown) (unknown) CK-MB (CK-2) TNP (units (unknown) date) unknown) (unknown) (no (unknown) (unknown) CK-MB (CK-2) (units (u nknown) date) unknown) (unknown) (no (unknown) (unknown) COVID pending. (units (unknown) date) unknown) (unknown) (no (unknown) (unknown) CV: regular rate (units (unknown) date) and rhythm, no unknown) murmurs, reproducible chest pain to palpation (unknown) (no (unknown) (unknown) Calcium 9.3 (units (un known) date) unknown) (unknown) (no (unknown) (unknown) Calcium (units (unkno wn) date) unknown) (unknown) (no (unknown) (unknown) Carbon Dioxide (units (unknown) date) 26 unknown) (unknown) (no (unknown) (unknown) Carbon Dioxide (units (unknown) date) unknown) (unknown) (no (unknown) (unknown) Cataracts, (units (unk nown) date) bilateral unknown) (unknown) (no (unknown) (unknown) Chief complaint: (units (unknown) date) cardiac issues unknown) (unknown) (no (unknown) (unknown) Chloride 105 (units (u nknown) date) unknown) (unknown) (no (unknown) (unknown) Chloride (units (unkno wn) date) unknown) (unknown) (no (unknown) (unknown) Code status is (units (unknown) date) DNR. unknown) (unknown) (no (unknown) (unknown) Creatinine 0.83 (units (unknown) date) unknown) (unknown) (no (unknown) (unknown) Creatinine (units (unk nown) date) unknown) (unknown) (no (unknown) (unknown) Critical Care (units ( unknown) date) time: unknown) (unknown) (no (unknown) (unknown) D-Dimer 728 H (units ( unknown) date) unknown) (unknown) (no (unknown) (unknown) D-Dimer (units (unkno wn) date) unknown) (unknown) (no (unknown) (unknown) : 1940 (units (unknown) date) Acct:[id number] unknown) (unknown) (no (unknown) (unknown) DVT prophylaxis (units (unknown) date) with heparin unknown) subQ. (unknown) (no (unknown) (unknown) Date Patient (units (u nknown) date) Seen: 04/20/22 unknown) (unknown) (no (unknown) (unknown) Date of Service: (units (unknown) date) 04/20/22 unknown) (unknown) (no (unknown) (unknown) EXT: warm and (units ( unknown) date) well perfused unknown) with no edema (unknown) (no (unknown) (unknown) Environment (units (un known) date) unknown) (unknown) (no (unknown) (unknown) Eos # (Auto) 100 (units (unknown) date) unknown) (unknown) (no (unknown) (unknown) Eos # (Auto) (units (u nknown) date) unknown) (unknown) (no (unknown) (unknown) Eos % (Auto) 1.1 (units (unknown) date) L unknown) (unknown) (no (unknown) (unknown) Eos % (Auto) (units (u nknown) date) unknown) (unknown) (no (unknown) (unknown) Estimated GFR > (units (unknown) date) 60 unknown) (unknown) (no (unknown) (unknown) Estimated GFR (units ( unknown) date) unknown) (unknown) (no (unknown) (unknown) Exam Narrative: (units (unknown) date) unknown) (unknown) (no (unknown) (unknown) Exam (units (unkno wn) date) unknown) (unknown) (no (unknown) (unknown) Family + Social (units (unknown) date) History unknown) (unknown) (no (unknown) (unknown) Family History (units (unknown) date) (Updated 04/20/22 unknown) @ 18:25 by Joseph Samuels MD) (unknown) (no (unknown) (unknown) Feels Safe in (units ( unknown) date) Current Yes unknown) (unknown) (no (unknown) (unknown) GEN: no acute (units ( unknown) date) distress unknown) (unknown) (no (unknown) (unknown) Globulin 3.5 (units (u nknown) date) unknown) (unknown) (no (unknown) (unknown) Globulin (units (unkno wn) date) unknown) (unknown) (no (unknown) (unknown) Glucose 85 (units (unk nown) date) unknown) (unknown) (no (unknown) (unknown) Glucose (units (unkno wn) date) unknown) (unknown) (no (unknown) (unknown) H/O: (units (unkno wn) date) hysterectomy unknown) (unknown) (no (unknown) (unknown) HEENT: moist (units (u nknown) date) mucous membranes, unknown) PERRL (unknown) (no (unknown) (unknown) Hct 45.6 (units (unkno wn) date) unknown) (unknown) (no (unknown) (unknown) Hct (units (unkno wn) date) unknown) (unknown) (no (unknown) (unknown) Hgb 15.2 (units (unkno wn) date) unknown) (unknown) (no (unknown) (unknown) Hgb (units (unkno wn) date) unknown) (unknown) (no (unknown) (unknown) History + (units (unkn own) date) Physical Report unknown) (unknown) (no (unknown) (unknown) History of (units (unk nown) date) Present Illness unknown) (unknown) (no (unknown) (unknown) Home Medications (units (unknown) date) and Allergies unknown) (unknown) (no (unknown) (unknown) Hypertension (units (u nknown) date) unknown) (unknown) (no (unknown) (unknown) Hypothyroidism (units (unknown) date) unknown) (unknown) (no (unknown) (unknown) I have reviewed (units (unknown) date) home meds and unknown) used all available resources to reconcile the home (unknown) (no (unknown) (unknown) I spent a total (units (unknown) date) of [] minutes of unknown) critical care time on this patient's care (unknown) (no (unknown) (unknown) INR 1.1 (units (unkno wn) date) unknown) (unknown) (no (unknown) (unknown) INR (units (unkno wn) date) unknown) (unknown) (no (unknown) (unknown) In the ED (units (unkn own) date) patient had a unknown) normal ECG with normal troponin. BP elevated up to (unknown) (no (unknown) (unknown) [facility] (units (unknown) date) [address] unknown) [place] [address] (unknown) (no (unknown) (unknown) Laboratory (units (unk nown) date) Results - last 24 unknown) hr (unknown) (no (unknown) (unknown) Labs (units (unkno wn) date) unknown) (unknown) (no (unknown) (unknown) Labs: (units (unkno wn) date) unknown) (unknown) (no (unknown) (unknown) Tiffany Alfaro is an (units (unknown) date) 81yo F with PMH unknown) of HTN, HLD, mild COPD and hypothryoidism who (unknown) (no (unknown) (unknown) Lipase 112 (units (unk nown) date) unknown) (unknown) (no (unknown) (unknown) Lipase (units (unkno wn) date) unknown) (unknown) (no (unknown) (unknown) Lymph # (Auto) (units (unknown) date) 3100 unknown) (unknown) (no (unknown) (unknown) Lymph # (Auto) (units (unknown) date) unknown) (unknown) (no (unknown) (unknown) Lymph % (Auto) (units (unknown) date) 33.3 unknown) (unknown) (no (unknown) (unknown) Lymph % (Auto) (units (unknown) date) unknown) (unknown) (no (unknown) (unknown) MCH 30.0 (units (unkno wn) date) unknown) (unknown) (no (unknown) (unknown) MCH (units (unkno wn) date) unknown) (unknown) (no (unknown) (unknown) MCHC 33.4 (units (unkn own) date) unknown) (unknown) (no (unknown) (unknown) MCHC (units (unkno wn) date) unknown) (unknown) (no (unknown) (unknown) MCV 89.7 (units (unkno wn) date) unknown) (unknown) (no (unknown) (unknown) MCV (units (unkno wn) date) unknown) (unknown) (no (unknown) (unknown) Magnesium 2.0 (units ( unknown) date) unknown) (unknown) (no (unknown) (unknown) Magnesium (units (unkn own) date) unknown) (unknown) (no (unknown) (unknown) Medical History (units (unknown) date) (Updated 04/20/22 unknown) @ 18:38 by Joseph Samuels MD) (unknown) (no (unknown) (unknown) Meds (units (unkno wn) date) unknown) (unknown) (no (unknown) (unknown) [place] # (Auto) (units ( unknown) date) 500 unknown) (unknown) (no (unknown) (unknown) [place] # (Auto) (units ( unknown) date) unknown) (unknown) (no (unknown) (unknown) [place] % (Auto) (units ( unknown) date) 5.5 unknown) (unknown) (no (unknown) (unknown) [place] % (Auto) (units ( unknown) date) unknown) (unknown) (no (unknown) (unknown) NECK: trachea (units ( unknown) date) midline, no JVD unknown) (unknown) (no (unknown) (unknown) NEURO: awake, (units ( unknown) date) alert, oriented, unknown) no focal deficits (unknown) (no (unknown) (unknown) Narrative (units (unkn own) date) unknown) (unknown) (no (unknown) (unknown) Narrative: (units (unk nown) date) unknown) (unknown) (no (unknown) (unknown) Neut # (Auto) (units ( unknown) date) 5400 unknown) (unknown) (no (unknown) (unknown) Neut # (Auto) (units ( unknown) date) unknown) (unknown) (no (unknown) (unknown) Neut % (Auto) (units ( unknown) date) 58.6 unknown) (unknown) (no (unknown) (unknown) Neut % (Auto) (units ( unknown) date) unknown) (unknown) (no (unknown) (unknown) No Known Drug (units ( unknown) date) Allergies Allergy unknown) Verified 04/20/22 16:15 (unknown) (no (unknown) (unknown) Objective (units (unkn own) date) unknown) (unknown) (no (unknown) (unknown) Other Cardiac (units ( unknown) date) disease unknown) (unknown) (no (unknown) (unknown) Oxygen Delivery (units (unknown) date) Method Room Air unknown) Room Air (unknown) (no (unknown) (unknown) Oxygen Delivery (units (unknown) date) Method Room Air unknown) (unknown) (no (unknown) (unknown) Oxygen Delivery (units (unknown) date) Method unknown) (unknown) (no (unknown) (unknown) PT 12.2 (units (unkno wn) date) unknown) (unknown) (no (unknown) (unknown) PT (units (unkno wn) date) unknown) (unknown) (no (unknown) (unknown) PULM: clear (units (un known) date) bilaterally unknown) (unknown) (no (unknown) (unknown) Patient History (units (unknown) date) unknown) (unknown) (no (unknown) (unknown) Patient: (units (unkno wn) date) Tiffany Alfaro MR#: unknown) [id number] (unknown) (no (unknown) (unknown) Plt Count 169 (units ( unknown) date) unknown) (unknown) (no (unknown) (unknown) Plt Count (units (unkn own) date) unknown) (unknown) (no (unknown) (unknown) Potassium 4.3 (units ( unknown) date) unknown) (unknown) (no (unknown) (unknown) Potassium (units (unkn own) date) unknown) (unknown) (no (unknown) (unknown) Provider: (units (unkn own) date) Viktor Wise unknown) D.O. (unknown) (no (unknown) (unknown) Proxy is (units (unknown) date) Juni. unknown) (unknown) (no (unknown) (unknown) Pulse Oximetry (units (unknown) date) 96 unknown) (unknown) (no (unknown) (unknown) Pulse Oximetry (units (unknown) date) 97 99 98 unknown) (unknown) (no (unknown) (unknown) Pulse Oximetry (units (unknown) date) 98 95 unknown) (unknown) (no (unknown) (unknown) Pulse Oximetry (units (unknown) date) 98 97 unknown) (unknown) (no (unknown) (unknown) Pulse Rate 61 66 (units (unknown) date) unknown) (unknown) (no (unknown) (unknown) Pulse Rate 66 60 (units (unknown) date) unknown) (unknown) (no (unknown) (unknown) Pulse Rate 68 (units ( unknown) date) unknown) (unknown) (no (unknown) (unknown) Pulse Rate 90 78 (units (unknown) date) 74 unknown) (unknown) (no (unknown) (unknown) RBC 5.08 (units (unkno wn) date) unknown) (unknown) (no (unknown) (unknown) RBC (units (unkno wn) date) unknown) (unknown) (no (unknown) (unknown) RDW 14.3 (units (unkno wn) date) unknown) (unknown) (no (unknown) (unknown) RDW (units (unkno wn) date) unknown) (unknown) (no (unknown) (unknown) Respiratory Rate (units (unknown) date) 14 22 22 unknown) (unknown) (no (unknown) (unknown) Respiratory Rate (units (unknown) date) 20 21 unknown) (unknown) (no (unknown) (unknown) Respiratory Rate (units (unknown) date) 20 unknown) (unknown) (no (unknown) (unknown) Respiratory Rate (units (unknown) date) 22 unknown) (unknown) (no (unknown) (unknown) Result Diagrams: (units (unknown) date) unknown) (unknown) (no (unknown) (unknown) Review of (units (unkn own) date) Systems unknown) (unknown) (no (unknown) (unknown) Safety + (units (unkno wn) date) Behavioral: unknown) (unknown) (no (unknown) (unknown) Signed (units (unkno wn) date) By:<Electronicall unknown) y signed by Viktor Wise D.O.> (unknown) (no (unknown) (unknown) Smoking Status (units (unknown) date) Current every day unknown) smoker (unknown) (no (unknown) (unknown) Sodium 140 (units (unk nown) date) unknown) (unknown) (no (unknown) (unknown) Sodium (units (unkno wn) date) unknown) (unknown) (no (unknown) (unknown) Substance Use (units ( unknown) date) Type does not use unknown) (unknown) (no (unknown) (unknown) Surgical History (units (unknown) date) (Updated 04/20/22 unknown) @ 18:26 by Joseph Samuels MD) (unknown) (no (unknown) (unknown) Temperature 97.1 (units (unknown) date) F L unknown) (unknown) (no (unknown) (unknown) Temperature (units (un known) date) unknown) (unknown) (no (unknown) (unknown) Threatened By a (units (unknown) date) Person unknown) (unknown) (no (unknown) (unknown) Time Patient (units (u nknown) date) Seen: 18:41 unknown) (unknown) (no (unknown) (unknown) Time Spent With (units (unknown) date) Patient unknown) (unknown) (no (unknown) (unknown) Tobacco + (units (unkn own) date) Substance use: unknown) (unknown) (no (unknown) (unknown) Total Bilirubin (units (unknown) date) 0.5 unknown) (unknown) (no (unknown) (unknown) Total Bilirubin (units (unknown) date) unknown) (unknown) (no (unknown) (unknown) Total Creatine (units (unknown) date) Kinase 29 L unknown) (unknown) (no (unknown) (unknown) Total Creatine (units (unknown) date) Kinase unknown) (unknown) (no (unknown) (unknown) Total Protein (units ( unknown) date) 8.1 unknown) (unknown) (no (unknown) (unknown) Total Protein (units ( unknown) date) unknown) (unknown) (no (unknown) (unknown) Troponin I < (units (u nknown) date) 0.012 unknown) (unknown) (no (unknown) (unknown) Troponin I (units (unk nown) date) unknown) (unknown) (no (unknown) (unknown) Vital Signs (units (un known) date) unknown) (unknown) (no (unknown) (unknown) WBC 9.3 (units (unkno wn) date) unknown) (unknown) (no (unknown) (unknown) WBC (units (unkno wn) date) unknown) (unknown) (no (unknown) (unknown) [Embedded Image (units (unknown) date) Not Available] unknown) (unknown) (no (unknown) (unknown) alcohol intake (units (unknown) date) frequency unknown) holiday/special occasion (unknown) (no (unknown) (unknown) for 30 years. (units ( unknown) date) She has a chronic unknown) cough but not worse. No NV, myalgias, LE (unknown) (no (unknown) (unknown) meds. (units (unkno wn) date) unknown) (unknown) (no (unknown) (unknown) presents with (units ( unknown) date) about 1 week of unknown) severe fatigue, LE heaviness, exertional chest (unknown) (no (unknown) (unknown) pressure (units (unkno wn) date) radiating to left unknown) shoulder and SOB. States she hasn't had these (unknown) (no (unknown) (unknown) stated. (units (unkno wn) date) unknown) (unknown) (no (unknown) (unknown) strong family (units (u nknown) date) history of CAD. unknown) Has smoked up to 1ppd for 60 years. No alcohol use (unknown) (no (unknown) (unknown) swelling, or (units (u nknown) date) diarrhea. Says unknown) she has had monitoring of her thyroid labs. (unknown) (no (unknown) (unknown) symptoms before. (units (unknown) date) Chest pain is unknown) worse with activity and better at rest. She has a (unknown) (no (unknown) (unknown) today; this time (units (unknown) date) is exclusive of unknown) procedural time. Result panel 15 (unknown) (no date) (unknown) (unknown) 5.5 % (unkn own) (unknown) (no date) (unknown) (unknown) 5.5 % (unkn own) Result panel 16 (unknown) (no date) (unknown) (unknown) 79 pg/ml (unkn own) (unknown) (no date) (unknown) (unknown) 79 pg/ml (unkn own) Result panel 17 (unknown) (no date) (unknown) (unknown) 6.66 uiu/ml (unkn own) (unknown) (no date) (unknown) (unknown) 6.66 uiu/ml (unkn own) Result panel 18 (unknown) (no date) (unknown) (unknown) Negative (units (unkn own) unknown) (unknown) (no date) (unknown) (unknown) Negative (units (unkn own) unknown) Result panel 19 (unknown) (no date) (unknown) (unknown) < 0.012 ng/ml (unkn own) (unknown) (no date) (unknown) (unknown) < 0.012 ng/ml (unkn own) Result panel 20 (unknown) (no date) (unknown) (unknown) > 60 ml/min (unkn own) (unknown) (no date) (unknown) (unknown) > 60 ml/min (unkn own) (unknown) (no date) (unknown) (unknown) 0.68 mg/dl (unkn own) (unknown) (no date) (unknown) (unknown) 109 mmol/l (unkn own) (unknown) (no date) (unknown) (unknown) 138 mmol/l (unkn own) (unknown) (no date) (unknown) (unknown) 16 mg/dl (unkn own) (unknown) (no date) (unknown) (unknown) 23 mmol/l (unkn own) (unknown) (no date) (unknown) (unknown) 23.5 (units unknown) (unknown) (unknown) (no date) (unknown) (unknown) 3.8 mmol/l (unkn own) (unknown) (no date) (unknown) (unknown) 8.2 mg/dl (unkn own) (unknown) (no date) (unknown) (unknown) 90 mg/dl (unkn own) (unknown) (no date) (unknown) (unknown) 90 mg/dl (unkn own) Result panel 21 (unknown) (no date) (unknown) (unknown) < 0.012 ng/ml (unkn own) (unknown) (no date) (unknown) (unknown) < 0.012 ng/ml (unkn own) Result panel 22 (unknown) (no date) (unknown) (unknown) 1.2 % (unkn own) (unknown) (no date) (unknown) (unknown) 100 /ul (unkn own) (unknown) (no date) (unknown) (unknown) 13.2 g/dl (unkn own) (unknown) (no date) (unknown) (unknown) 136 x10 3/ul (unkn own) (unknown) (no date) (unknown) (unknown) 14.0 % (unkn own) (unknown) (no date) (unknown) (unknown) 2.2 % (unkn own) (unknown) (no date) (unknown) (unknown) 200 /ul (unkn own) (unknown) (no date) (unknown) (unknown) 30.3 pg (unkn own) (unknown) (no date) (unknown) (unknown) 3000 /ul (unkn own) (unknown) (no date) (unknown) (unknown) 34.4 % (unkn own) (unknown) (no date) (unknown) (unknown) 38.3 % (unkn own) (unknown) (no date) (unknown) (unknown) 3900 /ul (unkn own) (unknown) (no date) (unknown) (unknown) 4.34 x10 6/ul (unkn own) (unknown) (no date) (unknown) (unknown) 40.0 % (unkn own) (unknown) (no date) (unknown) (unknown) 400 /ul (unkn own) (unknown) (no date) (unknown) (unknown) 5.4 % (unkn own) (unknown) (no date) (unknown) (unknown) 51.2 % (unkn own) (unknown) (no date) (unknown) (unknown) 7.6 x10 3/ul (unkn own) (unknown) (no date) (unknown) (unknown) 88.3 fl (unkn own) Result panel 23 (unknown) (no date) (unknown) (unknown) 1.76 ng/dl (unkn own) (unknown) (no date) (unknown) (unknown) 1.76 ng/dl (unkn own) (unknown) (no date) (unknown) (unknown) 6.66 uiu/ml (unkn own) (unknown) (no date) (unknown) (unknown) 6.66 uiu/ml (unkn own) Result panel 24 (unknown) (no (unknown) (unknown) (no value) (units (unk nown) date) unknown) (unknown) (no (unknown) (unknown) 10, 2in (units (unkno wn) date) intensity, and unknown) improved in recovery, along with some shortness of (unknown) (no (unknown) (unknown) 04/21/22 (units (unkno wn) date) unknown) (unknown) (no (unknown) (unknown) [address] (units (unkn own) date) Street unknown) (unknown) (no (unknown) (unknown) [address] (units (unkno wn) date) unknown) (unknown) (no (unknown) (unknown) Accession (units (unkn own) date) Number: unknown) [id number] (unknown) (no (unknown) (unknown) Age/Sex: 81 / F (units (unknown) date) Date of Service: unknown) (unknown) (no (unknown) (unknown) [place], [place] (units ( unknown) date) [address] unknown) (unknown) (no (unknown) (unknown) CARDIAC STRESS: (units (unknown) date) The patient unknown) initially walked on Jreemias protocol, however, she (unknown) (no (unknown) (unknown) CONCLUSION: (units (un known) date) Exercise stress unknown) test did not reveal any obvious inducible (unknown) (no (unknown) (unknown) COPIES MNE: (units (un known) date) PALV; unknown) (unknown) (no (unknown) (unknown) DATE OF (units (unkno wn) date) SERVICE: unknown) 04/21/2022 (unknown) (no (unknown) (unknown) DICTATING (units (unkn own) date) MD/COPIES TO: unknown) Tabatha Gaming MD (unknown) (no (unknown) (unknown) : 1940 (units (unknown) date) Acct:[id number] unknown) (unknown) (no (unknown) (unknown) Draft (units (unkno wn) date) unknown) (unknown) (no (unknown) (unknown) However, the (units (u nknown) date) patient has very unknown) poor exercise tolerance. She achieved 3.5 (unknown) (no (unknown) (unknown) INDICATION: (units (un known) date) Chest unknown) discomfort, hypertension, hyperlipidemia, shortness of (unknown) (no (unknown) (unknown) [facility] (units (unknown) date) unknown) (unknown) (no (unknown) (unknown) Loc: AC 225-1 (units ( unknown) date) unknown) (unknown) (no (unknown) (unknown) Nuclear (units (unkno wn) date) Medicine Report unknown) (unknown) (no (unknown) (unknown) Ordering (units (o wn) date) Provider: unknown) Viktor Wise D.O. (unknown) (no (unknown) (unknown) PROCEDURE: (units (unk nown) date) Exercise stress unknown) test. (unknown) (no (unknown) (unknown) Patient: (units (o wn) date) Tiffany Alfaro L unknown) MR#: [id number] (unknown) (no (unknown) (unknown) Procedure: (units (unk nown) date) Exercise unknown) treadmill NON NUC (unknown) (no (unknown) (unknown) Signed (units (o wn) date) unknown) (unknown) (no (unknown) (unknown) [employer]/fn/lc (units (unkno wn) date) unknown) (unknown) (no (unknown) (unknown) Tiffany Alfaro - (units ( unknown) date) unknown) (unknown) (no (unknown) (unknown) breath. (units (unkno wn) date) unknown) (unknown) (no (unknown) (unknown) changes seen. (units ( unknown) date) She had some unknown) PACs without any sustained ventricular tachycardia (unknown) (no (unknown) (unknown) changes. Some (units ( unknown) date) premature atrial unknown) contractions without any obvious atrial (unknown) (no (unknown) (unknown) could not walk (units (unknown) date) on Jeremias unknown) protocol. She had modified Jeremias protocol. Overall, (unknown) (no (unknown) (unknown) dd: 04/21/2022 (units (unknown) date) 12:55:00 dt: unknown) 04/21/2022 17:27:00 (unknown) (no (unknown) (unknown) discomfort (units (unk nown) date) during exercise, unknown) which was mild without any significant ischemic (unknown) (no (unknown) (unknown) doc#: (units (unkno wn) date) [id number]/job#: unknown) [id number] (unknown) (no (unknown) (unknown) fibrillation or (units (unknown) date) ventricular unknown) tachycardia. Correlate clinically and if pre-test (unknown) (no (unknown) (unknown) ischemia. (units (unkn own) date) unknown) (unknown) (no (unknown) (unknown) metabolic (units (unkn own) date) equivalents of unknown) workload. Flat blood pressure response. Chest (unknown) (no (unknown) (unknown) modality. (units (unkn own) date) Discussed the unknown) plan with Dr. Eagle Wise. (unknown) (no (unknown) (unknown) or atrial (units (unkn own) date) fibrillation. unknown) She had mild chest discomfort, which on a scale of 1 (unknown) (no (unknown) (unknown) percent of (units (unk nown) date) target heart unknown) rate with maximum heart rate of 138. Baseline blood (unknown) (no (unknown) (unknown) pressure (units (unkno wn) date) 168/90, which unknown) was flat without any significant rise. Baseline rhythm (unknown) (no (unknown) (unknown) probability is (units (unknown) date) high, consider unknown) repeating exercise stress test with imaging (unknown) (no (unknown) (unknown) remained having (units (unknown) date) some nonspecific unknown) ST changes. However, no convincing ischemic (unknown) (no (unknown) (unknown) she walked (units (unk nown) date) about 5 minutes unknown) and 19 seconds, achieved 3.5 METs of workload and 99 (unknown) (no (unknown) (unknown) to (units (unkno wn) date) unknown) (unknown) (no (unknown) (unknown) was sinus with (units (unknown) date) some nonspecific unknown) ST-T changes. During exercise, the patient Result panel 25 (unknown) (no (unknown) (unknown) (no value) (units (unk nown) date) unknown) (unknown) (no (unknown) (unknown) (past 8 hours): (units (unknown) date) unknown) (unknown) (no (unknown) (unknown) 02:15 02:15 (units (un known) date) 02:15 unknown) (unknown) (no (unknown) (unknown) 02:20 04/21/22 (units (unknown) date) unknown) (unknown) (no (unknown) (unknown) 02:42 04/21/22 (units (unknown) date) unknown) (unknown) (no (unknown) (unknown) 04:00 (units (unkno wn) date) unknown) (unknown) (no (unknown) (unknown) 07:00 04/21/22 (units (unknown) date) unknown) (unknown) (no (unknown) (unknown) 07:45 (units (unkno wn) date) unknown) (unknown) (no (unknown) (unknown) 08:23 04/21/22 (units (unknown) date) unknown) (unknown) (no (unknown) (unknown) 04/20/22 (units (unkno wn) date) 04/20/22 04/20/22 unknown) (unknown) (no (unknown) (unknown) 04/20/22 18:22 (units (unknown) date) unknown) (unknown) (no (unknown) (unknown) 04/20/22 18:51 (units (unknown) date) unknown) (unknown) (no (unknown) (unknown) 04/21/22 02:15 (units (unknown) date) unknown) (unknown) (no (unknown) (unknown) 04/21/22 (units (unkno wn) date) 04/21/22 04/21/22 unknown) (unknown) (no (unknown) (unknown) 04/21/22 (units (unkno wn) date) unknown) (unknown) (no (unknown) (unknown) 16:20 16:22 (units (un known) date) 16:22 unknown) (unknown) (no (unknown) (unknown) 16:22 16:22 (units (un known) date) 16:22 unknown) (unknown) (no (unknown) (unknown) 16:22 19:26 (units (un known) date) 20:20 unknown) (unknown) (no (unknown) (unknown) 208/101 so nitro (units (unknown) date) patch applied. unknown) Labs were unremarkable. (unknown) (no (unknown) (unknown) 4900 (units (unkno wn) date) unknown) (unknown) (no (unknown) (unknown) ALT 12 (units (unkno wn) date) unknown) (unknown) (no (unknown) (unknown) ALT (units (unkno wn) date) unknown) (unknown) (no (unknown) (unknown) APTT 28 (units (unkno wn) date) unknown) (unknown) (no (unknown) (unknown) APTT (units (unkno wn) date) unknown) (unknown) (no (unknown) (unknown) AST 25 (units (unkno wn) date) unknown) (unknown) (no (unknown) (unknown) AST (units (unkno wn) date) unknown) (unknown) (no (unknown) (unknown) Age/Sex: 81 / F (units (unknown) date) unknown) (unknown) (no (unknown) (unknown) Albumin 4.6 (units (un known) date) unknown) (unknown) (no (unknown) (unknown) Albumin (units (unkno wn) date) unknown) (unknown) (no (unknown) (unknown) Albumin/Globulin (units (unknown) date) Ratio 1.3 unknown) (unknown) (no (unknown) (unknown) Albumin/Globulin (units (unknown) date) Ratio unknown) (unknown) (no (unknown) (unknown) Alkaline (units (unkno wn) date) Phosphatase 68 unknown) (unknown) (no (unknown) (unknown) Alkaline (units (unkno wn) date) Phosphatase unknown) (unknown) (no (unknown) (unknown) Attending (units (unkn own) date) Provider: unknown) Viktor Wise (unknown) (no (unknown) (unknown) BUN 16 (units (unkno wn) date) unknown) (unknown) (no (unknown) (unknown) BUN 17 (units (unkno wn) date) unknown) (unknown) (no (unknown) (unknown) BUN (units (unkno wn) date) unknown) (unknown) (no (unknown) (unknown) BUN/Creatinine (units (unknown) date) Ratio 20.5 unknown) (unknown) (no (unknown) (unknown) BUN/Creatinine (units (unknown) date) Ratio 23.5 H unknown) (unknown) (no (unknown) (unknown) BUN/Creatinine (units (unknown) date) Ratio unknown) (unknown) (no (unknown) (unknown) Baso # (Auto) (units ( unknown) date) 100 unknown) (unknown) (no (unknown) (unknown) Baso # (Auto) (units ( unknown) date) unknown) (unknown) (no (unknown) (unknown) Baso % (Auto) (units ( unknown) date) 1.2 unknown) (unknown) (no (unknown) (unknown) Baso % (Auto) (units ( unknown) date) 1.5 unknown) (unknown) (no (unknown) (unknown) Baso % (Auto) (units ( unknown) date) unknown) (unknown) (no (unknown) (unknown) Blood Pressure (units (unknown) date) 145/82 H 145/82 H unknown) (unknown) (no (unknown) (unknown) Blood Pressure (units (unknown) date) 156/78 H 129/71 unknown) (unknown) (no (unknown) (unknown) CK-MB (CK-2) Rel (units (unknown) date) Index TNP unknown) (unknown) (no (unknown) (unknown) CK-MB (CK-2) Rel (units (unknown) date) Index unknown) (unknown) (no (unknown) (unknown) CK-MB (CK-2) TNP (units (unknown) date) unknown) (unknown) (no (unknown) (unknown) CK-MB (CK-2) (units (u nknown) date) unknown) (unknown) (no (unknown) (unknown) Calcium 8.2 L (units ( unknown) date) unknown) (unknown) (no (unknown) (unknown) Calcium 9.3 (units (un known) date) unknown) (unknown) (no (unknown) (unknown) Calcium (units (unkno wn) date) unknown) (unknown) (no (unknown) (unknown) Carbon Dioxide (units (unknown) date) 23 unknown) (unknown) (no (unknown) (unknown) Carbon Dioxide (units (unknown) date) 26 unknown) (unknown) (no (unknown) (unknown) Carbon Dioxide (units (unknown) date) unknown) (unknown) (no (unknown) (unknown) Cataracts, (units (unk nown) date) bilateral unknown) (unknown) (no (unknown) (unknown) Chief complaint: (units (unknown) date) cardiac issues unknown) (unknown) (no (unknown) (unknown) Chloride 105 (units (u nknown) date) unknown) (unknown) (no (unknown) (unknown) Chloride 109 H (units (unknown) date) unknown) (unknown) (no (unknown) (unknown) Chloride (units (unkno wn) date) unknown) (unknown) (no (unknown) (unknown) Comment: (units (unkno wn) date) unknown) (unknown) (no (unknown) (unknown) Consult to (units (unk nown) date) Physical Therapy unknown) Evaluate + Treat (unknown) (no (unknown) (unknown) Consults: (units (unkn own) date) unknown) (unknown) (no (unknown) (unknown) Creatinine 0.68 (units (unknown) date) unknown) (unknown) (no (unknown) (unknown) Creatinine 0.83 (units (unknown) date) unknown) (unknown) (no (unknown) (unknown) Creatinine (units (unk n) date) unknown) (unknown) (no (unknown) (unknown) D-Dimer 728 H (units ( unknown) date) unknown) (unknown) (no (unknown) (unknown) D-Dimer (units (unkno wn) date) unknown) (unknown) (no (unknown) (unknown) : 1940 (units (unknown) date) Acct:[id number] unknown) (unknown) (no (unknown) (unknown) Date of Service: (units (unknown) date) 04/20/22 unknown) (unknown) (no (unknown) (unknown) Date of (units (unkno wn) date) admission: unknown) (unknown) (no (unknown) (unknown) Deep Vein (units (unkn own) date) Thrombosis/Pulmon unknown) arabella Embolism Present on Admission: No (unknown) (no (unknown) (unknown) Discharge Data (units (unknown) date) unknown) (unknown) (no (unknown) (unknown) Discharge Plan (units (unknown) date) unknown) (unknown) (no (unknown) (unknown) Discharge (units (unkn own) date) Providers unknown) (unknown) (no (unknown) (unknown) Discharge (units (unkn own) date) Summary unknown) (unknown) (no (unknown) (unknown) Discharge orders (units (unknown) date) + Medications unknown) (unknown) (no (unknown) (unknown) Discharge (units (unkn own) date) provider: unknown) (unknown) (no (unknown) (unknown) Eos # (Auto) 100 (units (unknown) date) unknown) (unknown) (no (unknown) (unknown) Eos # (Auto) 200 (units (unknown) date) unknown) (unknown) (no (unknown) (unknown) Eos # (Auto) (units (u nknown) date) unknown) (unknown) (no (unknown) (unknown) Eos % (Auto) 1.1 (units (unknown) date) L unknown) (unknown) (no (unknown) (unknown) Eos % (Auto) 2.2 (units (unknown) date) unknown) (unknown) (no (unknown) (unknown) Eos % (Auto) (units (u nknown) date) unknown) (unknown) (no (unknown) (unknown) Estimated GFR > (units (unknown) date) 60 unknown) (unknown) (no (unknown) (unknown) Estimated GFR (units ( unknown) date) unknown) (unknown) (no (unknown) (unknown) Exam (units (unkno wn) date) unknown) (unknown) (no (unknown) (unknown) Family History (units (unknown) date) (Updated 04/20/22 unknown) @ 18:25 by Joseph Samuels MD) (unknown) (no (unknown) (unknown) Follow (units (unkno wn) date) up/Referrals: unknown) (unknown) (no (unknown) (unknown) Free T4 1.76 (units (u nknown) date) unknown) (unknown) (no (unknown) (unknown) Free T4 (units (unkno wn) date) unknown) (unknown) (no (unknown) (unknown) Globulin 3.5 (units (u nknown) date) unknown) (unknown) (no (unknown) (unknown) Globulin (units (unkno wn) date) unknown) (unknown) (no (unknown) (unknown) Glucose 85 (units (unk nown) date) unknown) (unknown) (no (unknown) (unknown) Glucose 90 (units (unk nown) date) unknown) (unknown) (no (unknown) (unknown) Glucose (units (unkno wn) date) unknown) (unknown) (no (unknown) (unknown) H/O: (units (unkno wn) date) hysterectomy unknown) (unknown) (no (unknown) (unknown) Hct 38.3 (units (unkno wn) date) unknown) (unknown) (no (unknown) (unknown) Hct 45.6 (units (unkno wn) date) unknown) (unknown) (no (unknown) (unknown) Hct (units (unkno wn) date) unknown) (unknown) (no (unknown) (unknown) Hemoglobin A1c (units (unknown) date) 5.5 unknown) (unknown) (no (unknown) (unknown) Hemoglobin A1c (units (unknown) date) unknown) (unknown) (no (unknown) (unknown) Hgb 13.2 (units (unkno wn) date) unknown) (unknown) (no (unknown) (unknown) Hgb 15.2 (units (unkno wn) date) unknown) (unknown) (no (unknown) (unknown) Hgb (units (unkno wn) date) unknown) (unknown) (no (unknown) (unknown) History of (units (unk nown) date) Present Illness unknown) (unknown) (no (unknown) (unknown) Hypertension (units (u nknown) date) unknown) (unknown) (no (unknown) (unknown) Hypothyroidism (units (unknown) date) unknown) (unknown) (no (unknown) (unknown) INR 1.1 (units (unkno wn) date) unknown) (unknown) (no (unknown) (unknown) INR (units (unkno wn) date) unknown) (unknown) (no (unknown) (unknown) In the ED (units (unkn own) date) patient had a unknown) normal ECG with normal troponin. BP elevated up to (unknown) (no (unknown) (unknown) [facility] (units (unknown) date) [address] unknown) [place] [address] (unknown) (no (unknown) (unknown) Laboratory (units (unk nown) date) Results - last 24 unknown) hr (unknown) (no (unknown) (unknown) Labs (units (unkno wn) date) unknown) (unknown) (no (unknown) (unknown) Labs: (units (unkno wn) date) unknown) (unknown) (no (unknown) (unknown) Tiffany Alfaro is an (units (unknown) date) 81yo F with PMH unknown) of HTN, HLD, mild COPD and hypothryoidism who (unknown) (no (unknown) (unknown) Lipase 112 (units (unk nown) date) unknown) (unknown) (no (unknown) (unknown) Lipase (units (unkno wn) date) unknown) (unknown) (no (unknown) (unknown) Lymph # (Auto) (units (unknown) date) 3000 unknown) (unknown) (no (unknown) (unknown) Lymph # (Auto) (units (unknown) date) 3100 unknown) (unknown) (no (unknown) (unknown) Lymph # (Auto) (units (unknown) date) unknown) (unknown) (no (unknown) (unknown) Lymph % (Auto) (units (unknown) date) 33.3 unknown) (unknown) (no (unknown) (unknown) Lymph % (Auto) (units (unknown) date) 40.0 unknown) (unknown) (no (unknown) (unknown) Lymph % (Auto) (units (unknown) date) unknown) (unknown) (no (unknown) (unknown) MCH 30.0 (units (unkno wn) date) unknown) (unknown) (no (unknown) (unknown) MCH 30.3 (units (unkno wn) date) unknown) (unknown) (no (unknown) (unknown) MCH (units (unkno wn) date) unknown) (unknown) (no (unknown) (unknown) MCHC 33.4 (units (unkn own) date) unknown) (unknown) (no (unknown) (unknown) MCHC 34.4 (units (unkn own) date) unknown) (unknown) (no (unknown) (unknown) MCHC (units (unkno wn) date) unknown) (unknown) (no (unknown) (unknown) MCV 88.3 (units (unkno wn) date) unknown) (unknown) (no (unknown) (unknown) MCV 89.7 (units (unkno wn) date) unknown) (unknown) (no (unknown) (unknown) MCV (units (unkno wn) date) unknown) (unknown) (no (unknown) (unknown) Magnesium 2.0 (units ( unknown) date) unknown) (unknown) (no (unknown) (unknown) Magnesium (units (unkn own) date) unknown) (unknown) (no (unknown) (unknown) Ligia Lavonne, (units (unknown) date) RN unknown) (unknown) (no (unknown) (unknown) Viktor Wise, (units (unknown) date) DO unknown) (unknown) (no (unknown) (unknown) Medical History (units (unknown) date) (Updated 04/20/22 unknown) @ 18:38 by Joseph Samuels MD) (unknown) (no (unknown) (unknown) [place] # (Auto) (units ( unknown) date) 400 unknown) (unknown) (no (unknown) (unknown) [place] # (Auto) (units ( unknown) date) 500 unknown) (unknown) (no (unknown) (unknown) [place] # (Auto) (units ( unknown) date) unknown) (unknown) (no (unknown) (unknown) [place] % (Auto) (units ( unknown) date) 5.4 unknown) (unknown) (no (unknown) (unknown) [place] % (Auto) (units ( unknown) date) 5.5 unknown) (unknown) (no (unknown) (unknown) [place] % (Auto) (units ( unknown) date) unknown) (unknown) (no (unknown) (unknown) NT-Pro-B (units (unkno wn) date) Natriuret Pep 79 unknown) (unknown) (no (unknown) (unknown) NT-Pro-B (units (unkno wn) date) Natriuret Pep unknown) (unknown) (no (unknown) (unknown) Narrative: (units (unk nown) date) unknown) (unknown) (no (unknown) (unknown) Neut # (Auto) (units ( unknown) date) 3900 unknown) (unknown) (no (unknown) (unknown) Neut # (Auto) (units ( unknown) date) 5400 unknown) (unknown) (no (unknown) (unknown) Neut # (Auto) (units ( unknown) date) unknown) (unknown) (no (unknown) (unknown) Neut % (Auto) (units ( unknown) date) 51.2 unknown) (unknown) (no (unknown) (unknown) Neut % (Auto) (units ( unknown) date) 58.6 unknown) (unknown) (no (unknown) (unknown) Neut % (Auto) (units ( unknown) date) unknown) (unknown) (no (unknown) (unknown) Objective (units (unkn own) date) unknown) (unknown) (no (unknown) (unknown) Other Cardiac (units ( unknown) date) disease unknown) (unknown) (no (unknown) (unknown) Oxygen Delivery (units (unknown) date) Method Room Air unknown) (unknown) (no (unknown) (unknown) Oxygen Delivery (units (unknown) date) Method unknown) (unknown) (no (unknown) (unknown) Oxygen Flow Rate (units (unknown) date) 0 unknown) (unknown) (no (unknown) (unknown) PFSH (units (unkno wn) date) unknown) (unknown) (no (unknown) (unknown) PT 12.2 (units (unkno wn) date) unknown) (unknown) (no (unknown) (unknown) PT (units (unkno wn) date) unknown) (unknown) (no (unknown) (unknown) Patient (units (unkno wn) date) Disposition: Home unknown) (unknown) (no (unknown) (unknown) Patient: (units (unkno wn) date) Tiffany Alfaro MR#: unknown) [id number] (unknown) (no (unknown) (unknown) Physician (units (unkn own) date) Instructions: unknown) Evaluate and Treat (unknown) (no (unknown) (unknown) Plt Count 136 L (units (unknown) date) unknown) (unknown) (no (unknown) (unknown) Plt Count 169 (units ( unknown) date) unknown) (unknown) (no (unknown) (unknown) Plt Count (units (unkn own) date) unknown) (unknown) (no (unknown) (unknown) Potassium 3.8 (units ( unknown) date) unknown) (unknown) (no (unknown) (unknown) Potassium 4.3 (units ( unknown) date) unknown) (unknown) (no (unknown) (unknown) Potassium (units (unkn own) date) unknown) (unknown) (no (unknown) (unknown) Primary Care (units (u nknown) date) Provider: unknown) Ligia Banerjee (unknown) (no (unknown) (unknown) Primary care (units (u nknown) date) physician: unknown) (unknown) (no (unknown) (unknown) Provider (units (unkno wn) date) unknown) (unknown) (no (unknown) (unknown) Provider: (units (unkn own) date) Viktor Wise unknown) D.O. (unknown) (no (unknown) (unknown) Pulse Oximetry (units (unknown) date) 96 95 unknown) (unknown) (no (unknown) (unknown) Pulse Oximetry (units (unknown) date) 96 unknown) (unknown) (no (unknown) (unknown) Pulse Rate 60 60 (units (unknown) date) unknown) (unknown) (no (unknown) (unknown) Pulse Rate 67 56 (units (unknown) date) L unknown) (unknown) (no (unknown) (unknown) Quality (units (unkno wn) date) unknown) (unknown) (no (unknown) (unknown) RBC 4.34 (units (unkno wn) date) unknown) (unknown) (no (unknown) (unknown) RBC 5.08 (units (unkno wn) date) unknown) (unknown) (no (unknown) (unknown) RBC (units (unkno wn) date) unknown) (unknown) (no (unknown) (unknown) RDW 14.0 (units (unkno wn) date) unknown) (unknown) (no (unknown) (unknown) RDW 14.3 (units (unkno wn) date) unknown) (unknown) (no (unknown) (unknown) RDW (units (unkno wn) date) unknown) (unknown) (no (unknown) (unknown) Respiratory Rate (units (unknown) date) 17 unknown) (unknown) (no (unknown) (unknown) Respiratory Rate (units (unknown) date) 18 16 unknown) (unknown) (no (unknown) (unknown) Result Diagrams: (units (unknown) date) unknown) (unknown) (no (unknown) (unknown) SARS-CoV-2 (PCR) (units (unknown) date) Negative unknown) (unknown) (no (unknown) (unknown) SARS-CoV-2 (PCR) (units (unknown) date) unknown) (unknown) (no (unknown) (unknown) Signed By: (units (unk nown) date) unknown) (unknown) (no (unknown) (unknown) Smoking Status: (units (unknown) date) Current every day unknown) smoker (unknown) (no (unknown) (unknown) Social History (units (unknown) date) (Reviewed unknown) 04/20/22 @ 18:25 by Joseph Samuels MD) (unknown) (no (unknown) (unknown) Sodium 138 (units (unk nown) date) unknown) (unknown) (no (unknown) (unknown) Sodium 140 (units (unk nown) date) unknown) (unknown) (no (unknown) (unknown) Sodium (units (unkno wn) date) unknown) (unknown) (no (unknown) (unknown) Surgical History (units (unknown) date) (Updated 04/20/22 unknown) @ 18:26 by Joseph Samuels MD) (unknown) (no (unknown) (unknown) TSH 6.66 H (units (unk nown) date) unknown) (unknown) (no (unknown) (unknown) TSH (units (unkno wn) date) unknown) (unknown) (no (unknown) (unknown) Temperature 97.3 (units (unknown) date) F L unknown) (unknown) (no (unknown) (unknown) Temperature 97.9 (units (unknown) date) F 97.7 F 97.6 F unknown) (unknown) (no (unknown) (unknown) Total Bilirubin (units (unknown) date) 0.5 unknown) (unknown) (no (unknown) (unknown) Total Bilirubin (units (unknown) date) unknown) (unknown) (no (unknown) (unknown) Total Creatine (units (unknown) date) Kinase 29 L unknown) (unknown) (no (unknown) (unknown) Total Creatine (units (unknown) date) Kinase unknown) (unknown) (no (unknown) (unknown) Total Protein (units ( unknown) date) 8.1 unknown) (unknown) (no (unknown) (unknown) Total Protein (units ( unknown) date) unknown) (unknown) (no (unknown) (unknown) Troponin I < (units (u nknown) date) 0.012 unknown) (unknown) (no (unknown) (unknown) Troponin I (units (unk nown) date) unknown) (unknown) (no (unknown) (unknown) VTE (units (unkno wn) date) unknown) (unknown) (no (unknown) (unknown) Vital Signs (units (un known) date) unknown) (unknown) (no (unknown) (unknown) WBC 7.6 (units (unkno wn) date) unknown) (unknown) (no (unknown) (unknown) WBC 9.3 (units (unkno wn) date) unknown) (unknown) (no (unknown) (unknown) WBC (units (unkno wn) date) unknown) (unknown) (no (unknown) (unknown) Ligia Banerjee, (units (unknown) date) RN [Primary Care unknown) Provider] (unknown) (no (unknown) (unknown) [Embedded Image (units (unknown) date) Not Available] unknown) (unknown) (no (unknown) (unknown) for 30 years. (units ( unknown) date) She has a chronic unknown) cough but not worse. No NV, myalgias, LE (unknown) (no (unknown) (unknown) household (units (unkn own) date) members: spouse unknown) (unknown) (no (unknown) (unknown) presents with (units ( unknown) date) about 1 week of unknown) severe fatigue, LE heaviness, exertional chest (unknown) (no (unknown) (unknown) pressure (units (unkno wn) date) radiating to left unknown) shoulder and SOB. States she hasn't had these (unknown) (no (unknown) (unknown) strong family (units (u nknown) date) history of CAD. unknown) Has smoked up to 1ppd for 60 years. No alcohol use (unknown) (no (unknown) (unknown) swelling, or (units (u nknown) date) diarrhea. Says unknown) she has had monitoring of her thyroid labs. (unknown) (no (unknown) (unknown) symptoms before. (units (unknown) date) Chest pain is unknown) worse with activity and better at rest. She has a Result panel 26 (unknown) (no (unknown) (unknown) (no value) (units (unk nown) date) unknown) (unknown) (no (unknown) (unknown) (past 8 hours): (units (unknown) date) unknown) (unknown) (no (unknown) (unknown) 02:15 02:15 (units (un known) date) 02:15 unknown) (unknown) (no (unknown) (unknown) 02:20 04/21/22 (units (unknown) date) unknown) (unknown) (no (unknown) (unknown) 02:42 04/21/22 (units (unknown) date) unknown) (unknown) (no (unknown) (unknown) 04:00 (units (unkno wn) date) unknown) (unknown) (no (unknown) (unknown) 07:00 04/21/22 (units (unknown) date) unknown) (unknown) (no (unknown) (unknown) 07:45 (units (unkno wn) date) unknown) (unknown) (no (unknown) (unknown) 08:23 04/21/22 (units (unknown) date) unknown) (unknown) (no (unknown) (unknown) 04/20/22 (units (unkno wn) date) 04/20/22 04/20/22 unknown) (unknown) (no (unknown) (unknown) 04/20/22 18:22 (units (unknown) date) unknown) (unknown) (no (unknown) (unknown) 04/20/22 18:51 (units (unknown) date) unknown) (unknown) (no (unknown) (unknown) 04/21/22 02:15 (units (unknown) date) unknown) (unknown) (no (unknown) (unknown) 04/21/22 (units (unkno wn) date) 04/21/22 04/21/22 unknown) (unknown) (no (unknown) (unknown) 04/21/22 (units (unkno wn) date) unknown) (unknown) (no (unknown) (unknown) 16:20 16:22 (units (un known) date) 16:22 unknown) (unknown) (no (unknown) (unknown) 16:22 16:22 (units (un known) date) 16:22 unknown) (unknown) (no (unknown) (unknown) 16:22 19:26 (units (un known) date) 20:20 unknown) (unknown) (no (unknown) (unknown) 208/101 so nitro (units (unknown) date) patch applied. unknown) Labs were unremarkable. (unknown) (no (unknown) (unknown) 4900 (units (unkno wn) date) unknown) (unknown) (no (unknown) (unknown) 81 mg PO DAILY (units (unknown) date) Qty: 90 0RF unknown) (unknown) (no (unknown) (unknown) ALT 12 (units (unkno wn) date) unknown) (unknown) (no (unknown) (unknown) ALT (units (unkno wn) date) unknown) (unknown) (no (unknown) (unknown) APTT 28 (units (unkno wn) date) unknown) (unknown) (no (unknown) (unknown) APTT (units (unkno wn) date) unknown) (unknown) (no (unknown) (unknown) AST 25 (units (unkno wn) date) unknown) (unknown) (no (unknown) (unknown) AST (units (unkno wn) date) unknown) (unknown) (no (unknown) (unknown) Age/Sex: 81 / F (units (unknown) date) unknown) (unknown) (no (unknown) (unknown) Albumin 4.6 (units (un known) date) unknown) (unknown) (no (unknown) (unknown) Albumin (units (unkno wn) date) unknown) (unknown) (no (unknown) (unknown) Albumin/Globulin (units (unknown) date) Ratio 1.3 unknown) (unknown) (no (unknown) (unknown) Albumin/Globulin (units (unknown) date) Ratio unknown) (unknown) (no (unknown) (unknown) Alkaline (units (unkno wn) date) Phosphatase 68 unknown) (unknown) (no (unknown) (unknown) Alkaline (units (unkno wn) date) Phosphatase unknown) (unknown) (no (unknown) (unknown) Attending (units (unkn own) date) Provider: unknown) Viktor Wise (unknown) (no (unknown) (unknown) BUN 16 (units (unkno wn) date) unknown) (unknown) (no (unknown) (unknown) BUN 17 (units (unkno wn) date) unknown) (unknown) (no (unknown) (unknown) BUN (units (unkno wn) date) unknown) (unknown) (no (unknown) (unknown) BUN/Creatinine (units (unknown) date) Ratio 20.5 unknown) (unknown) (no (unknown) (unknown) BUN/Creatinine (units (unknown) date) Ratio 23.5 H unknown) (unknown) (no (unknown) (unknown) BUN/Creatinine (units (unknown) date) Ratio unknown) (unknown) (no (unknown) (unknown) Baso # (Auto) (units ( unknown) date) 100 unknown) (unknown) (no (unknown) (unknown) Baso # (Auto) (units ( unknown) date) unknown) (unknown) (no (unknown) (unknown) Baso % (Auto) (units ( unknown) date) 1.2 unknown) (unknown) (no (unknown) (unknown) Baso % (Auto) (units ( unknown) date) 1.5 unknown) (unknown) (no (unknown) (unknown) Baso % (Auto) (units ( unknown) date) unknown) (unknown) (no (unknown) (unknown) Blood Pressure (units (unknown) date) 145/82 H 145/82 H unknown) (unknown) (no (unknown) (unknown) Blood Pressure (units (unknown) date) 156/78 H 129/71 unknown) (unknown) (no (unknown) (unknown) CK-MB (CK-2) Rel (units (unknown) date) Index TNP unknown) (unknown) (no (unknown) (unknown) CK-MB (CK-2) Rel (units (unknown) date) Index unknown) (unknown) (no (unknown) (unknown) CK-MB (CK-2) TNP (units (unknown) date) unknown) (unknown) (no (unknown) (unknown) CK-MB (CK-2) (units (u nknown) date) unknown) (unknown) (no (unknown) (unknown) Calcium 8.2 L (units ( unknown) date) unknown) (unknown) (no (unknown) (unknown) Calcium 9.3 (units (un known) date) unknown) (unknown) (no (unknown) (unknown) Calcium (units (unkno wn) date) unknown) (unknown) (no (unknown) (unknown) Carbon Dioxide (units (unknown) date) 23 unknown) (unknown) (no (unknown) (unknown) Carbon Dioxide (units (unknown) date) 26 unknown) (unknown) (no (unknown) (unknown) Carbon Dioxide (units (unknown) date) unknown) (unknown) (no (unknown) (unknown) Cataracts, (units (unk n) date) bilateral unknown) (unknown) (no (unknown) (unknown) Chief complaint: (units (unknown) date) cardiac issues unknown) (unknown) (no (unknown) (unknown) Chloride 105 (units (u nknown) date) unknown) (unknown) (no (unknown) (unknown) Chloride 109 H (units (unknown) date) unknown) (unknown) (no (unknown) (unknown) Chloride (units (unkno wn) date) unknown) (unknown) (no (unknown) (unknown) Comment: (units (o wn) date) unknown) (unknown) (no (unknown) (unknown) Consult to (units (unk n) date) Physical Therapy unknown) Evaluate + Treat (unknown) (no (unknown) (unknown) Consults: (units (unkn own) date) unknown) (unknown) (no (unknown) (unknown) Creatinine 0.68 (units (unknown) date) unknown) (unknown) (no (unknown) (unknown) Creatinine 0.83 (units (unknown) date) unknown) (unknown) (no (unknown) (unknown) Creatinine (units (unk n) date) unknown) (unknown) (no (unknown) (unknown) D-Dimer 728 H (units ( unknown) date) unknown) (unknown) (no (unknown) (unknown) D-Dimer (units (unkno wn) date) unknown) (unknown) (no (unknown) (unknown) : 1940 (units (unknown) date) Acct:[id number] unknown) (unknown) (no (unknown) (unknown) Date of Service: (units (unknown) date) 04/20/22 unknown) (unknown) (no (unknown) (unknown) Date of (units (unkno wn) date) admission: unknown) (unknown) (no (unknown) (unknown) Deep Vein (units (unkn own) date) Thrombosis/Pulmon unknown) arabella Embolism Present on Admission: No (unknown) (no (unknown) (unknown) Discharge Data (units (unknown) date) unknown) (unknown) (no (unknown) (unknown) Discharge Plan (units (unknown) date) unknown) (unknown) (no (unknown) (unknown) Discharge (units (unkn own) date) Providers unknown) (unknown) (no (unknown) (unknown) Discharge (units (unkn own) date) Summary unknown) (unknown) (no (unknown) (unknown) Discharge orders (units (unknown) date) + Medications unknown) (unknown) (no (unknown) (unknown) Discharge (units (unkn own) date) provider: unknown) (unknown) (no (unknown) (unknown) Eos # (Auto) 100 (units (unknown) date) unknown) (unknown) (no (unknown) (unknown) Eos # (Auto) 200 (units (unknown) date) unknown) (unknown) (no (unknown) (unknown) Eos # (Auto) (units (u nknown) date) unknown) (unknown) (no (unknown) (unknown) Eos % (Auto) 1.1 (units (unknown) date) L unknown) (unknown) (no (unknown) (unknown) Eos % (Auto) 2.2 (units (unknown) date) unknown) (unknown) (no (unknown) (unknown) Eos % (Auto) (units (u nknown) date) unknown) (unknown) (no (unknown) (unknown) Estimated GFR > (units (unknown) date) 60 unknown) (unknown) (no (unknown) (unknown) Estimated GFR (units ( unknown) date) unknown) (unknown) (no (unknown) (unknown) Exam (units (unkno wn) date) unknown) (unknown) (no (unknown) (unknown) Family History (units (unknown) date) (Updated 04/20/22 unknown) @ 18:25 by Joseph Samuels MD) (unknown) (no (unknown) (unknown) Follow (units (unkno wn) date) up/Referrals: unknown) (unknown) (no (unknown) (unknown) Free T4 1.76 (units (u nknown) date) unknown) (unknown) (no (unknown) (unknown) Free T4 (units (unkno wn) date) unknown) (unknown) (no (unknown) (unknown) Globulin 3.5 (units (u nknown) date) unknown) (unknown) (no (unknown) (unknown) Globulin (units (unkno wn) date) unknown) (unknown) (no (unknown) (unknown) Glucose 85 (units (unk nown) date) unknown) (unknown) (no (unknown) (unknown) Glucose 90 (units (unk nown) date) unknown) (unknown) (no (unknown) (unknown) Glucose (units (unkno wn) date) unknown) (unknown) (no (unknown) (unknown) H/O: (units (unkno wn) date) hysterectomy unknown) (unknown) (no (unknown) (unknown) Hct 38.3 (units (unkno wn) date) unknown) (unknown) (no (unknown) (unknown) Hct 45.6 (units (unkno wn) date) unknown) (unknown) (no (unknown) (unknown) Hct (units (unkno wn) date) unknown) (unknown) (no (unknown) (unknown) Hemoglobin A1c (units (unknown) date) 5.5 unknown) (unknown) (no (unknown) (unknown) Hemoglobin A1c (units (unknown) date) unknown) (unknown) (no (unknown) (unknown) Hgb 13.2 (units (unkno wn) date) unknown) (unknown) (no (unknown) (unknown) Hgb 15.2 (units (unkno wn) date) unknown) (unknown) (no (unknown) (unknown) Hgb (units (unkno wn) date) unknown) (unknown) (no (unknown) (unknown) History of (units (unk nown) date) Present Illness unknown) (unknown) (no (unknown) (unknown) Hypertension (units (u nknown) date) unknown) (unknown) (no (unknown) (unknown) Hypothyroidism (units (unknown) date) unknown) (unknown) (no (unknown) (unknown) INR 1.1 (units (unkno wn) date) unknown) (unknown) (no (unknown) (unknown) INR (units (unkno wn) date) unknown) (unknown) (no (unknown) (unknown) In the ED (units (unkn own) date) patient had a unknown) normal ECG with normal troponin. BP elevated up to (unknown) (no (unknown) (unknown) [facility] (units (unknown) date) [address] unknown) [place] [address] (unknown) (no (unknown) (unknown) Laboratory (units (unk nown) date) Results - last 24 unknown) hr (unknown) (no (unknown) (unknown) Labs (units (unkno wn) date) unknown) (unknown) (no (unknown) (unknown) Labs: (units (unkno wn) date) unknown) (unknown) (no (unknown) (unknown) Tiffany Alfaro is an (units (unknown) date) 81yo F with PMH unknown) of HTN, HLD, mild COPD and hypothryoidism who (unknown) (no (unknown) (unknown) Lipase 112 (units (unk nown) date) unknown) (unknown) (no (unknown) (unknown) Lipase (units (unkno wn) date) unknown) (unknown) (no (unknown) (unknown) Lymph # (Auto) (units (unknown) date) 3000 unknown) (unknown) (no (unknown) (unknown) Lymph # (Auto) (units (unknown) date) 3100 unknown) (unknown) (no (unknown) (unknown) Lymph # (Auto) (units (unknown) date) unknown) (unknown) (no (unknown) (unknown) Lymph % (Auto) (units (unknown) date) 33.3 unknown) (unknown) (no (unknown) (unknown) Lymph % (Auto) (units (unknown) date) 40.0 unknown) (unknown) (no (unknown) (unknown) Lymph % (Auto) (units (unknown) date) unknown) (unknown) (no (unknown) (unknown) MCH 30.0 (units (unkno wn) date) unknown) (unknown) (no (unknown) (unknown) MCH 30.3 (units (unkno wn) date) unknown) (unknown) (no (unknown) (unknown) MCH (units (unkno wn) date) unknown) (unknown) (no (unknown) (unknown) MCHC 33.4 (units (unkn own) date) unknown) (unknown) (no (unknown) (unknown) MCHC 34.4 (units (unkn own) date) unknown) (unknown) (no (unknown) (unknown) MCHC (units (unkno wn) date) unknown) (unknown) (no (unknown) (unknown) MCV 88.3 (units (unkno wn) date) unknown) (unknown) (no (unknown) (unknown) MCV 89.7 (units (unkno wn) date) unknown) (unknown) (no (unknown) (unknown) MCV (units (unkno wn) date) unknown) (unknown) (no (unknown) (unknown) Magnesium 2.0 (units ( unknown) date) unknown) (unknown) (no (unknown) (unknown) Magnesium (units (unkn own) date) unknown) (unknown) (no (unknown) (unknown) Ligia Lavonne, (units (unknown) date) RN unknown) (unknown) (no (unknown) (unknown) Viktor Светлана Wise, (units (unknown) date) DO unknown) (unknown) (no (unknown) (unknown) Medical History (units (unknown) date) (Updated 04/20/22 unknown) @ 18:38 by Joseph Samuels MD) (unknown) (no (unknown) (unknown) [place] # (Auto) (units ( unknown) date) 400 unknown) (unknown) (no (unknown) (unknown) [place] # (Auto) (units ( unknown) date) 500 unknown) (unknown) (no (unknown) (unknown) [place] # (Auto) (units ( unknown) date) unknown) (unknown) (no (unknown) (unknown) [place] % (Auto) (units ( unknown) date) 5.4 unknown) (unknown) (no (unknown) (unknown) [place] % (Auto) (units ( unknown) date) 5.5 unknown) (unknown) (no (unknown) (unknown) [place] % (Auto) (units ( unknown) date) unknown) (unknown) (no (unknown) (unknown) NT-Pro-B (units (unkno wn) date) Natriuret Pep 79 unknown) (unknown) (no (unknown) (unknown) NT-Pro-B (units (unkno wn) date) Natriuret Pep unknown) (unknown) (no (unknown) (unknown) Narrative: (units (unk nown) date) unknown) (unknown) (no (unknown) (unknown) Neut # (Auto) (units ( unknown) date) 3900 unknown) (unknown) (no (unknown) (unknown) Neut # (Auto) (units ( unknown) date) 5400 unknown) (unknown) (no (unknown) (unknown) Neut # (Auto) (units ( unknown) date) unknown) (unknown) (no (unknown) (unknown) Neut % (Auto) (units ( unknown) date) 51.2 unknown) (unknown) (no (unknown) (unknown) Neut % (Auto) (units ( unknown) date) 58.6 unknown) (unknown) (no (unknown) (unknown) Neut % (Auto) (units ( unknown) date) unknown) (unknown) (no (unknown) (unknown) New (units (unkno wn) date) unknown) (unknown) (no (unknown) (unknown) Objective (units (unkn own) date) unknown) (unknown) (no (unknown) (unknown) Other Cardiac (units ( unknown) date) disease unknown) (unknown) (no (unknown) (unknown) Oxygen Delivery (units (unknown) date) Method Room Air unknown) (unknown) (no (unknown) (unknown) Oxygen Delivery (units (unknown) date) Method unknown) (unknown) (no (unknown) (unknown) Oxygen Flow Rate (units (unknown) date) 0 unknown) (unknown) (no (unknown) (unknown) PFSH (units (unkno wn) date) unknown) (unknown) (no (unknown) (unknown) PT 12.2 (units (unkno wn) date) unknown) (unknown) (no (unknown) (unknown) PT (units (unkno wn) date) unknown) (unknown) (no (unknown) (unknown) Patient (units (unkno wn) date) Disposition: Home unknown) (unknown) (no (unknown) (unknown) Patient: (units (unkno wn) date) Tiffany Alfaro MR#: unknown) [id number] (unknown) (no (unknown) (unknown) Physician (units (unkn own) date) Instructions: unknown) Evaluate and Treat (unknown) (no (unknown) (unknown) Plt Count 136 L (units (unknown) date) unknown) (unknown) (no (unknown) (unknown) Plt Count 169 (units ( unknown) date) unknown) (unknown) (no (unknown) (unknown) Plt Count (units (unkn own) date) unknown) (unknown) (no (unknown) (unknown) Potassium 3.8 (units ( unknown) date) unknown) (unknown) (no (unknown) (unknown) Potassium 4.3 (units ( unknown) date) unknown) (unknown) (no (unknown) (unknown) Potassium (units (unkn own) date) unknown) (unknown) (no (unknown) (unknown) Prescriptions: (units (unknown) date) unknown) (unknown) (no (unknown) (unknown) Primary Care (units (u nknown) date) Provider: unknown) Ligia Banerjee (unknown) (no (unknown) (unknown) Primary care (units (u nknown) date) physician: unknown) (unknown) (no (unknown) (unknown) Provider (units (unkno wn) date) Discharge unknown) Comment: Your stress test was normal but you didn't quite (unknown) (no (unknown) (unknown) Provider (units (unkno wn) date) unknown) (unknown) (no (unknown) (unknown) Provider: (units (unkn own) date) Viktor Wise unknown) D.O. (unknown) (no (unknown) (unknown) Pulse Oximetry (units (unknown) date) 96 95 unknown) (unknown) (no (unknown) (unknown) Pulse Oximetry (units (unknown) date) 96 unknown) (unknown) (no (unknown) (unknown) Pulse Rate 60 60 (units (unknown) date) unknown) (unknown) (no (unknown) (unknown) Pulse Rate 67 56 (units (unknown) date) L unknown) (unknown) (no (unknown) (unknown) Quality (units (unkno wn) date) unknown) (unknown) (no (unknown) (unknown) RBC 4.34 (units (unkno wn) date) unknown) (unknown) (no (unknown) (unknown) RBC 5.08 (units (unkno wn) date) unknown) (unknown) (no (unknown) (unknown) RBC (units (unkno wn) date) unknown) (unknown) (no (unknown) (unknown) RDW 14.0 (units (unkno wn) date) unknown) (unknown) (no (unknown) (unknown) RDW 14.3 (units (unkno wn) date) unknown) (unknown) (no (unknown) (unknown) RDW (units (unkno wn) date) unknown) (unknown) (no (unknown) (unknown) Respiratory Rate (units (unknown) date) 17 unknown) (unknown) (no (unknown) (unknown) Respiratory Rate (units (unknown) date) 18 16 unknown) (unknown) (no (unknown) (unknown) Result Diagrams: (units (unknown) date) unknown) (unknown) (no (unknown) (unknown) SARS-CoV-2 (PCR) (units (unknown) date) Negative unknown) (unknown) (no (unknown) (unknown) SARS-CoV-2 (PCR) (units (unknown) date) unknown) (unknown) (no (unknown) (unknown) Signed By: (units (unk nown) date) unknown) (unknown) (no (unknown) (unknown) Smoking Status: (units (unknown) date) Current every day unknown) smoker (unknown) (no (unknown) (unknown) Social History (units (unknown) date) (Reviewed unknown) 04/20/22 @ 18:25 by Joseph Samuels MD) (unknown) (no (unknown) (unknown) Sodium 138 (units (unk nown) date) unknown) (unknown) (no (unknown) (unknown) Sodium 140 (units (unk nown) date) unknown) (unknown) (no (unknown) (unknown) Sodium (units (unkno wn) date) unknown) (unknown) (no (unknown) (unknown) Surgical History (units (unknown) date) (Updated 04/20/22 unknown) @ 18:26 by Joseph Samuels MD) (unknown) (no (unknown) (unknown) TSH 6.66 H (units (unk nown) date) unknown) (unknown) (no (unknown) (unknown) TSH (units (unkno wn) date) unknown) (unknown) (no (unknown) (unknown) Temperature 97.3 (units (unknown) date) F L unknown) (unknown) (no (unknown) (unknown) Temperature 97.9 (units (unknown) date) F 97.7 F 97.6 F unknown) (unknown) (no (unknown) (unknown) Total Bilirubin (units (unknown) date) 0.5 unknown) (unknown) (no (unknown) (unknown) Total Bilirubin (units (unknown) date) unknown) (unknown) (no (unknown) (unknown) Total Creatine (units (unknown) date) Kinase 29 L unknown) (unknown) (no (unknown) (unknown) Total Creatine (units (unknown) date) Kinase unknown) (unknown) (no (unknown) (unknown) Total Protein (units ( unknown) date) 8.1 unknown) (unknown) (no (unknown) (unknown) Total Protein (units ( unknown) date) unknown) (unknown) (no (unknown) (unknown) Troponin I < (units (u nknown) date) 0.012 unknown) (unknown) (no (unknown) (unknown) Troponin I (units (unk nown) date) unknown) (unknown) (no (unknown) (unknown) VTE (units (unkno wn) date) unknown) (unknown) (no (unknown) (unknown) Vital Signs (units (un known) date) unknown) (unknown) (no (unknown) (unknown) WBC 7.6 (units (unkno wn) date) unknown) (unknown) (no (unknown) (unknown) WBC 9.3 (units (unkno wn) date) unknown) (unknown) (no (unknown) (unknown) WBC (units (unkno wn) date) unknown) (unknown) (no (unknown) (unknown) Ligia Banerjee, (units (unknown) date) RN [Primary Care unknown) Provider] (unknown) (no (unknown) (unknown) [Embedded Image (units (unknown) date) Not Available] unknown) (unknown) (no (unknown) (unknown) aspirin 81 mg (units ( unknown) date) Tablet,Delayed unknown) Release (Dr/Ec) (unknown) (no (unknown) (unknown) correctional probation officer who (units (unknown) date) said you should unknown) have an outpatient nuclear stress test, and (unknown) (no (unknown) (unknown) echocardiogram (units (unknown) date) were normal. unknown) Please start taking a baby aspirin daily. (unknown) (no (unknown) (unknown) for 30 years. (units ( unknown) date) She has a chronic unknown) cough but not worse. No NV, myalgias, LE (unknown) (no (unknown) (unknown) household (units (unkn own) date) members: spouse unknown) (unknown) (no (unknown) (unknown) presents with (units ( unknown) date) about 1 week of unknown) severe fatigue, LE heaviness, exertional chest (unknown) (no (unknown) (unknown) pressure (units (unkno wn) date) radiating to left unknown) shoulder and SOB. States she hasn't had these (unknown) (no (unknown) (unknown) strong family (units (u nknown) date) history of CAD. unknown) Has smoked up to 1ppd for 60 years. No alcohol use (unknown) (no (unknown) (unknown) swelling, or (units (u nknown) date) diarrhea. Says unknown) she has had monitoring of her thyroid labs. (unknown) (no (unknown) (unknown) symptoms before. (units (unknown) date) Chest pain is unknown) worse with activity and better at rest. She has a (unknown) (no (unknown) (unknown) that you are (units (u nknown) date) safe to discharge unknown) for now given your heart enzyme and (unknown) (no (unknown) (unknown) work hard enough (units (unknown) date) to make it as unknown) accurate as it could be. I spoke with a Result panel 27 (unknown) (no (unknown) (unknown) (no value) (units (unk nown) date) unknown) (unknown) (no (unknown) (unknown) # acute chest (units ( unknown) date) pain and fatigue unknown) (unknown) (no (unknown) (unknown) # (units (unkno wn) date) hyperlipidemia, unknown) chronic (unknown) (no (unknown) (unknown) # hypertensive (units (unknown) date) urgency unknown) (unknown) (no (unknown) (unknown) # (units (unkno wn) date) hypothyroidism, unknown) chronic (unknown) (no (unknown) (unknown) # tobacco (units (unkn own) date) dependence unknown) (unknown) (no (unknown) (unknown) (past 8 hours): (units (unknown) date) unknown) (unknown) (no (unknown) (unknown) -60 year smoker, (units (unknown) date) currently smoking unknown) 5-6 cigarettes per day (unknown) (no (unknown) (unknown) -BP over 200 (units (u nknown) date) systolic in ED, unknown) patient reports compliance with her home losartan (unknown) (no (unknown) (unknown) -CTA negative (units ( unknown) date) for aortic unknown) dissection and PE (unknown) (no (unknown) (unknown) -TSH mildly (units (un known) date) elevated at 6, unknown) will not adjust synthroid (unknown) (no (unknown) (unknown) -at high risk (units ( unknown) date) for CAD with unknown) strong family history, age and smoking history (unknown) (no (unknown) (unknown) -continue home (units (unknown) date) Synthroid unknown) (unknown) (no (unknown) (unknown) -continue home (units (unknown) date) losartan 25 mg unknown) daily (unknown) (no (unknown) (unknown) -continue home (units (unknown) date) statin unknown) (unknown) (no (unknown) (unknown) -echo with EF (units ( unknown) date) 60-65% and no unknown) focal WMA's (unknown) (no (unknown) (unknown) -encouraged (units (un known) date) cessation unknown) (unknown) (no (unknown) (unknown) -exercise stress (units (unknown) date) test was normal unknown) but suboptimal as patient could not get HR up (unknown) (no (unknown) (unknown) -hydralazine IV (units (unknown) date) as needed, avoid unknown) labetalol as can alter stress test results (unknown) (no (unknown) (unknown) -improved to (units (u nknown) date) 150's systolic unknown) (unknown) (no (unknown) (unknown) -patient noted (units (unknown) date) fatigue improved unknown) during hospital stay (unknown) (no (unknown) (unknown) -patient notes (units (unknown) date) chest pain is unknown) exertional, however reproducible on exam (unknown) (no (unknown) (unknown) -recommended (units (u nknown) date) outpatient PCP unknown) f/u to adjust BP meds (unknown) (no (unknown) (unknown) -spoke with (units (un known) date) cardiology who unknown) recommended outpatient nuc med stress test as echo (unknown) (no (unknown) (unknown) -start aspirin (units (unknown) date) 81 mg daily unknown) (unknown) (no (unknown) (unknown) -troponin (units (unkn own) date) negative x3 unknown) (unknown) (no (unknown) (unknown) 02:15 02:15 (units (un known) date) 02:15 unknown) (unknown) (no (unknown) (unknown) 02:20 04/21/22 (units (unknown) date) unknown) (unknown) (no (unknown) (unknown) 02:42 04/21/22 (units (unknown) date) unknown) (unknown) (no (unknown) (unknown) 04:00 (units (unkno wn) date) unknown) (unknown) (no (unknown) (unknown) 07:00 04/21/22 (units (unknown) date) unknown) (unknown) (no (unknown) (unknown) 07:45 (units (unkno wn) date) unknown) (unknown) (no (unknown) (unknown) 08:23 04/21/22 (units (unknown) date) unknown) (unknown) (no (unknown) (unknown) 04/20/22 (units (unkno wn) date) 04/20/22 04/20/22 unknown) (unknown) (no (unknown) (unknown) 04/20/22 18:22 (units (unknown) date) unknown) (unknown) (no (unknown) (unknown) 04/20/22 18:51 (units (unknown) date) unknown) (unknown) (no (unknown) (unknown) 04/21/22 02:15 (units (unknown) date) unknown) (unknown) (no (unknown) (unknown) 04/21/22 (units (unkno wn) date) 04/21/22 04/21/22 unknown) (unknown) (no (unknown) (unknown) 04/21/22 (units (unkno wn) date) unknown) (unknown) (no (unknown) (unknown) 16:20 16:22 (units (un known) date) 16:22 unknown) (unknown) (no (unknown) (unknown) 16:22 16:22 (units (un known) date) 16:22 unknown) (unknown) (no (unknown) (unknown) 16:22 19:26 (units (un known) date) 20:20 unknown) (unknown) (no (unknown) (unknown) 208/101 so nitro (units (unknown) date) patch applied. unknown) Labs were unremarkable. (unknown) (no (unknown) (unknown) 4900 (units (unkno wn) date) unknown) (unknown) (no (unknown) (unknown) 81 mg PO DAILY (units (unknown) date) Qty: 90 0RF unknown) (unknown) (no (unknown) (unknown) ABD: soft, (units (unk nown) date) nontender, unknown) nondistended, no organomegaly (unknown) (no (unknown) (unknown) ALT 12 (units (unkno wn) date) unknown) (unknown) (no (unknown) (unknown) ALT (units (unkno wn) date) unknown) (unknown) (no (unknown) (unknown) APTT 28 (units (unkno wn) date) unknown) (unknown) (no (unknown) (unknown) APTT (units (unkno wn) date) unknown) (unknown) (no (unknown) (unknown) AST 25 (units (unkno wn) date) unknown) (unknown) (no (unknown) (unknown) AST (units (unkno wn) date) unknown) (unknown) (no (unknown) (unknown) Admitted with (units ( unknown) date) fatigue and unknown) exertional substernal CP. Chest reproducible on exam. (unknown) (no (unknown) (unknown) Age/Sex: 81 / F (units (unknown) date) unknown) (unknown) (no (unknown) (unknown) Albumin 4.6 (units (un known) date) unknown) (unknown) (no (unknown) (unknown) Albumin (units (unkno wn) date) unknown) (unknown) (no (unknown) (unknown) Albumin/Globulin (units (unknown) date) Ratio 1.3 unknown) (unknown) (no (unknown) (unknown) Albumin/Globulin (units (unknown) date) Ratio unknown) (unknown) (no (unknown) (unknown) Alkaline (units (unkno wn) date) Phosphatase 68 unknown) (unknown) (no (unknown) (unknown) Alkaline (units (unkno wn) date) Phosphatase unknown) (unknown) (no (unknown) (unknown) Attending (units (unkn own) date) Provider: unknown) Viktor Wise Светлана (unknown) (no (unknown) (unknown) BUN 16 (units (unkno wn) date) unknown) (unknown) (no (unknown) (unknown) BUN 17 (units (unkno wn) date) unknown) (unknown) (no (unknown) (unknown) BUN (units (unkno wn) date) unknown) (unknown) (no (unknown) (unknown) BUN/Creatinine (units (unknown) date) Ratio 20.5 unknown) (unknown) (no (unknown) (unknown) BUN/Creatinine (units (unknown) date) Ratio 23.5 H unknown) (unknown) (no (unknown) (unknown) BUN/Creatinine (units (unknown) date) Ratio unknown) (unknown) (no (unknown) (unknown) Baso # (Auto) (units ( unknown) date) 100 unknown) (unknown) (no (unknown) (unknown) Baso # (Auto) (units ( unknown) date) unknown) (unknown) (no (unknown) (unknown) Baso % (Auto) (units ( unknown) date) 1.2 unknown) (unknown) (no (unknown) (unknown) Baso % (Auto) (units ( unknown) date) 1.5 unknown) (unknown) (no (unknown) (unknown) Baso % (Auto) (units ( unknown) date) unknown) (unknown) (no (unknown) (unknown) Blood Pressure (units (unknown) date) 145/82 H 145/82 H unknown) (unknown) (no (unknown) (unknown) Blood Pressure (units (unknown) date) 156/78 H 129/71 unknown) (unknown) (no (unknown) (unknown) CK-MB (CK-2) Rel (units (unknown) date) Index TNP unknown) (unknown) (no (unknown) (unknown) CK-MB (CK-2) Rel (units (unknown) date) Index unknown) (unknown) (no (unknown) (unknown) CK-MB (CK-2) TNP (units (unknown) date) unknown) (unknown) (no (unknown) (unknown) CK-MB (CK-2) (units (u nknown) date) unknown) (unknown) (no (unknown) (unknown) CV: regular rate (units (unknown) date) and rhythm, no unknown) murmurs, reproducible chest pain to palpation (unknown) (no (unknown) (unknown) Calcium 8.2 L (units ( unknown) date) unknown) (unknown) (no (unknown) (unknown) Calcium 9.3 (units (un known) date) unknown) (unknown) (no (unknown) (unknown) Calcium (units (unkno wn) date) unknown) (unknown) (no (unknown) (unknown) Carbon Dioxide (units (unknown) date) 23 unknown) (unknown) (no (unknown) (unknown) Carbon Dioxide (units (unknown) date) 26 unknown) (unknown) (no (unknown) (unknown) Carbon Dioxide (units (unknown) date) unknown) (unknown) (no (unknown) (unknown) Cataracts, (units (unk nown) date) bilateral unknown) (unknown) (no (unknown) (unknown) Chief complaint: (units (unknown) date) cardiac issues unknown) (unknown) (no (unknown) (unknown) Chloride 105 (units (u nknown) date) unknown) (unknown) (no (unknown) (unknown) Chloride 109 H (units (unknown) date) unknown) (unknown) (no (unknown) (unknown) Chloride (units (unkno wn) date) unknown) (unknown) (no (unknown) (unknown) Comment: (units (unkno wn) date) unknown) (unknown) (no (unknown) (unknown) Consult to (units () date) Physical Therapy unknown) Evaluate + Treat (unknown) (no (unknown) (unknown) Consults: (units (unkn own) date) unknown) (unknown) (no (unknown) (unknown) Creatinine 0.68 (units (unknown) date) unknown) (unknown) (no (unknown) (unknown) Creatinine 0.83 (units (unknown) date) unknown) (unknown) (no (unknown) (unknown) Creatinine (units (unk nown) date) unknown) (unknown) (no (unknown) (unknown) D-Dimer 728 H (units ( unknown) date) unknown) (unknown) (no (unknown) (unknown) D-Dimer (units (unkno wn) date) unknown) (unknown) (no (unknown) (unknown) : 1940 (units (unknown) date) Acct:[id number] unknown) (unknown) (no (unknown) (unknown) Date of Service: (units (unknown) date) 04/20/22 unknown) (unknown) (no (unknown) (unknown) Date of (units (unkno wn) date) admission: unknown) (unknown) (no (unknown) (unknown) Deep Vein (units (unkn own) date) Thrombosis/Pulmon unknown) arabella Embolism Present on Admission: No (unknown) (no (unknown) (unknown) Discharge Data (units (unknown) date) unknown) (unknown) (no (unknown) (unknown) Discharge Date: (units (unknown) date) 04/21/22 unknown) (unknown) (no (unknown) (unknown) Discharge (units (unkn own) date) Diagnosis: unknown) (unknown) (no (unknown) (unknown) Discharge Plan (units (unknown) date) unknown) (unknown) (no (unknown) (unknown) Discharge (units (unkn own) date) Providers unknown) (unknown) (no (unknown) (unknown) Discharge (units (unkn own) date) Summary unknown) (unknown) (no (unknown) (unknown) Discharge orders (units (unknown) date) + Medications unknown) (unknown) (no (unknown) (unknown) Discharge (units (unkn own) date) provider: unknown) (unknown) (no (unknown) (unknown) EXT: warm and (units ( unknown) date) well perfused unknown) with no edema (unknown) (no (unknown) (unknown) Eos # (Auto) 100 (units (unknown) date) unknown) (unknown) (no (unknown) (unknown) Eos # (Auto) 200 (units (unknown) date) unknown) (unknown) (no (unknown) (unknown) Eos # (Auto) (units (u nknown) date) unknown) (unknown) (no (unknown) (unknown) Eos % (Auto) 1.1 (units (unknown) date) L unknown) (unknown) (no (unknown) (unknown) Eos % (Auto) 2.2 (units (unknown) date) unknown) (unknown) (no (unknown) (unknown) Eos % (Auto) (units (u nknown) date) unknown) (unknown) (no (unknown) (unknown) Estimated GFR > (units (unknown) date) 60 unknown) (unknown) (no (unknown) (unknown) Estimated GFR (units ( unknown) date) unknown) (unknown) (no (unknown) (unknown) Exam Narrative: (units (unknown) date) unknown) (unknown) (no (unknown) (unknown) Exam (units (unkno wn) date) unknown) (unknown) (no (unknown) (unknown) Family History (units (unknown) date) (Updated 04/20/22 unknown) @ 18:25 by Joseph Samuels MD) (unknown) (no (unknown) (unknown) Follow (units (unkno wn) date) up/Referrals: unknown) (unknown) (no (unknown) (unknown) Free T4 1.76 (units (u nknown) date) unknown) (unknown) (no (unknown) (unknown) Free T4 (units (unkno wn) date) unknown) (unknown) (no (unknown) (unknown) GEN: no acute (units ( unknown) date) distress unknown) (unknown) (no (unknown) (unknown) Globulin 3.5 (units (u nknown) date) unknown) (unknown) (no (unknown) (unknown) Globulin (units (unkno wn) date) unknown) (unknown) (no (unknown) (unknown) Glucose 85 (units (unk nown) date) unknown) (unknown) (no (unknown) (unknown) Glucose 90 (units (unk nown) date) unknown) (unknown) (no (unknown) (unknown) Glucose (units (unkno wn) date) unknown) (unknown) (no (unknown) (unknown) H/O: (units (unkno wn) date) hysterectomy unknown) (unknown) (no (unknown) (unknown) HEENT: moist (units (u nknown) date) mucous membranes, unknown) PERRL (unknown) (no (unknown) (unknown) Hct 38.3 (units (unkno wn) date) unknown) (unknown) (no (unknown) (unknown) Hct 45.6 (units (unkno wn) date) unknown) (unknown) (no (unknown) (unknown) Hct (units (unkno wn) date) unknown) (unknown) (no (unknown) (unknown) Hemoglobin A1c (units (unknown) date) 5.5 unknown) (unknown) (no (unknown) (unknown) Hemoglobin A1c (units (unknown) date) unknown) (unknown) (no (unknown) (unknown) Hgb 13.2 (units (unkno wn) date) unknown) (unknown) (no (unknown) (unknown) Hgb 15.2 (units (unkno wn) date) unknown) (unknown) (no (unknown) (unknown) Hgb (units (unkno wn) date) unknown) (unknown) (no (unknown) (unknown) History of (units (unk nown) date) Present Illness unknown) (unknown) (no (unknown) (unknown) Hospital Course (units (unknown) date) unknown) (unknown) (no (unknown) (unknown) Hospital Course: (units (unknown) date) unknown) (unknown) (no (unknown) (unknown) Hypertension (units (u nknown) date) unknown) (unknown) (no (unknown) (unknown) Hypothyroidism (units (unknown) date) unknown) (unknown) (no (unknown) (unknown) INR 1.1 (units (unkno wn) date) unknown) (unknown) (no (unknown) (unknown) INR (units (unkno wn) date) unknown) (unknown) (no (unknown) (unknown) In the ED (units (unkn own) date) patient had a unknown) normal ECG with normal troponin. BP elevated up to (unknown) (no (unknown) (unknown) [facility] (units (unknown) date) [address] unknown) [place] [address] (unknown) (no (unknown) (unknown) Laboratory (units (unk nown) date) Results - last 24 unknown) hr (unknown) (no (unknown) (unknown) Labs (units (unkno wn) date) unknown) (unknown) (no (unknown) (unknown) Labs: (units (unkno wn) date) unknown) (unknown) (no (unknown) (unknown) Tiffany Alfaro is an (units (unknown) date) 81yo F with PMH unknown) of HTN, HLD, mild COPD and hypothryoidism who (unknown) (no (unknown) (unknown) Lipase 112 (units (unk nown) date) unknown) (unknown) (no (unknown) (unknown) Lipase (units (unkno wn) date) unknown) (unknown) (no (unknown) (unknown) Lymph # (Auto) (units (unknown) date) 3000 unknown) (unknown) (no (unknown) (unknown) Lymph # (Auto) (units (unknown) date) 3100 unknown) (unknown) (no (unknown) (unknown) Lymph # (Auto) (units (unknown) date) unknown) (unknown) (no (unknown) (unknown) Lymph % (Auto) (units (unknown) date) 33.3 unknown) (unknown) (no (unknown) (unknown) Lymph % (Auto) (units (unknown) date) 40.0 unknown) (unknown) (no (unknown) (unknown) Lymph % (Auto) (units (unknown) date) unknown) (unknown) (no (unknown) (unknown) MCH 30.0 (units (unkno wn) date) unknown) (unknown) (no (unknown) (unknown) MCH 30.3 (units (unkno wn) date) unknown) (unknown) (no (unknown) (unknown) MCH (units (unkno wn) date) unknown) (unknown) (no (unknown) (unknown) MCHC 33.4 (units (unkn own) date) unknown) (unknown) (no (unknown) (unknown) MCHC 34.4 (units (unkn own) date) unknown) (unknown) (no (unknown) (unknown) MCHC (units (unkno wn) date) unknown) (unknown) (no (unknown) (unknown) MCV 88.3 (units (unkno wn) date) unknown) (unknown) (no (unknown) (unknown) MCV 89.7 (units (unkno wn) date) unknown) (unknown) (no (unknown) (unknown) MCV (units (unkno wn) date) unknown) (unknown) (no (unknown) (unknown) Magnesium 2.0 (units ( unknown) date) unknown) (unknown) (no (unknown) (unknown) Magnesium (units (unkn own) date) unknown) (unknown) (no (unknown) (unknown) Ligia Banerjee, (units (unknown) date) RN unknown) (unknown) (no (unknown) (unknown) Viktor Wise, (units (unknown) date) DO unknown) (unknown) (no (unknown) (unknown) Medical History (units (unknown) date) (Updated 04/20/22 unknown) @ 18:38 by Joseph Samuels MD) (unknown) (no (unknown) (unknown) [place] # (Auto) (units ( unknown) date) 400 unknown) (unknown) (no (unknown) (unknown) [place] # (Auto) (units ( unknown) date) 500 unknown) (unknown) (no (unknown) (unknown) [place] # (Auto) (units ( unknown) date) unknown) (unknown) (no (unknown) (unknown) [place] % (Auto) (units ( unknown) date) 5.4 unknown) (unknown) (no (unknown) (unknown) [place] % (Auto) (units ( unknown) date) 5.5 unknown) (unknown) (no (unknown) (unknown) [place] % (Auto) (units ( unknown) date) unknown) (unknown) (no (unknown) (unknown) NECK: trachea (units ( unknown) date) midline, no JVD unknown) (unknown) (no (unknown) (unknown) NEURO: awake, (units ( unknown) date) alert, oriented, unknown) no focal deficits (unknown) (no (unknown) (unknown) NT-Pro-B (units (unkno wn) date) Natriuret Pep 79 unknown) (unknown) (no (unknown) (unknown) NT-Pro-B (units (unkno wn) date) Natriuret Pep unknown) (unknown) (no (unknown) (unknown) Narrative (units (unkn own) date) unknown) (unknown) (no (unknown) (unknown) Narrative: (units (unk nown) date) unknown) (unknown) (no (unknown) (unknown) Neut # (Auto) (units ( unknown) date) 3900 unknown) (unknown) (no (unknown) (unknown) Neut # (Auto) (units ( unknown) date) 5400 unknown) (unknown) (no (unknown) (unknown) Neut # (Auto) (units ( unknown) date) unknown) (unknown) (no (unknown) (unknown) Neut % (Auto) (units ( unknown) date) 51.2 unknown) (unknown) (no (unknown) (unknown) Neut % (Auto) (units ( unknown) date) 58.6 unknown) (unknown) (no (unknown) (unknown) Neut % (Auto) (units ( unknown) date) unknown) (unknown) (no (unknown) (unknown) New (units (unkno wn) date) unknown) (unknown) (no (unknown) (unknown) Objective (units (unkn own) date) unknown) (unknown) (no (unknown) (unknown) Other Cardiac (units ( unknown) date) disease unknown) (unknown) (no (unknown) (unknown) Oxygen Delivery (units (unknown) date) Method Room Air unknown) (unknown) (no (unknown) (unknown) Oxygen Delivery (units (unknown) date) Method unknown) (unknown) (no (unknown) (unknown) Oxygen Flow Rate (units (unknown) date) 0 unknown) (unknown) (no (unknown) (unknown) PFSH (units (unkno wn) date) unknown) (unknown) (no (unknown) (unknown) PT 12.2 (units (unkno wn) date) unknown) (unknown) (no (unknown) (unknown) PT (units (unkno wn) date) unknown) (unknown) (no (unknown) (unknown) PULM: clear (units (un known) date) bilaterally unknown) (unknown) (no (unknown) (unknown) Patient (units (unkno wn) date) Disposition: Home unknown) (unknown) (no (unknown) (unknown) Patient: (units (unkno wn) date) Tiffany Alfaro MR#: unknown) [id number] (unknown) (no (unknown) (unknown) Physician (units (unkn own) date) Instructions: unknown) Evaluate and Treat (unknown) (no (unknown) (unknown) Plt Count 136 L (units (unknown) date) unknown) (unknown) (no (unknown) (unknown) Plt Count 169 (units ( unknown) date) unknown) (unknown) (no (unknown) (unknown) Plt Count (units (unkn own) date) unknown) (unknown) (no (unknown) (unknown) Potassium 3.8 (units ( unknown) date) unknown) (unknown) (no (unknown) (unknown) Potassium 4.3 (units ( unknown) date) unknown) (unknown) (no (unknown) (unknown) Potassium (units (unkn own) date) unknown) (unknown) (no (unknown) (unknown) Prescriptions: (units (unknown) date) unknown) (unknown) (no (unknown) (unknown) Primary Care (units (u nknown) date) Provider: unknown) Ligia Banerjee (unknown) (no (unknown) (unknown) Primary care (units (u nknown) date) physician: unknown) (unknown) (no (unknown) (unknown) Provider (units (unkno wn) date) Discharge unknown) Comment: Your stress test was normal but you didn't quite (unknown) (no (unknown) (unknown) Provider (units (unkno wn) date) unknown) (unknown) (no (unknown) (unknown) Provider: (units (unkn own) date) Viktor Wise unknown) D.O. (unknown) (no (unknown) (unknown) Pulse Oximetry (units (unknown) date) 96 95 unknown) (unknown) (no (unknown) (unknown) Pulse Oximetry (units (unknown) date) 96 unknown) (unknown) (no (unknown) (unknown) Pulse Rate 60 60 (units (unknown) date) unknown) (unknown) (no (unknown) (unknown) Pulse Rate 67 56 (units (unknown) date) L unknown) (unknown) (no (unknown) (unknown) Quality (units (unkno wn) date) unknown) (unknown) (no (unknown) (unknown) RBC 4.34 (units (unkno wn) date) unknown) (unknown) (no (unknown) (unknown) RBC 5.08 (units (unkno wn) date) unknown) (unknown) (no (unknown) (unknown) RBC (units (unkno wn) date) unknown) (unknown) (no (unknown) (unknown) RDW 14.0 (units (unkno wn) date) unknown) (unknown) (no (unknown) (unknown) RDW 14.3 (units (unkno wn) date) unknown) (unknown) (no (unknown) (unknown) RDW (units (unkno wn) date) unknown) (unknown) (no (unknown) (unknown) Respiratory Rate (units (unknown) date) 17 unknown) (unknown) (no (unknown) (unknown) Respiratory Rate (units (unknown) date) 18 16 unknown) (unknown) (no (unknown) (unknown) Result Diagrams: (units (unknown) date) unknown) (unknown) (no (unknown) (unknown) SARS-CoV-2 (PCR) (units (unknown) date) Negative unknown) (unknown) (no (unknown) (unknown) SARS-CoV-2 (PCR) (units (unknown) date) unknown) (unknown) (no (unknown) (unknown) Signed By: (units (unk nown) date) unknown) (unknown) (no (unknown) (unknown) Smoking Status: (units (unknown) date) Current every day unknown) smoker (unknown) (no (unknown) (unknown) Social History (units (unknown) date) (Reviewed unknown) 04/20/22 @ 18:25 by Joseph Samuels MD) (unknown) (no (unknown) (unknown) Sodium 138 (units (unk nown) date) unknown) (unknown) (no (unknown) (unknown) Sodium 140 (units (unk nown) date) unknown) (unknown) (no (unknown) (unknown) Sodium (units (unkno wn) date) unknown) (unknown) (no (unknown) (unknown) Summary (units (unkno wn) date) unknown) (unknown) (no (unknown) (unknown) Surgical History (units (unknown) date) (Updated 04/20/22 unknown) @ 18:26 by Joseph Samuels MD) (unknown) (no (unknown) (unknown) TSH 6.66 H (units (unk nown) date) unknown) (unknown) (no (unknown) (unknown) TSH (units (unkno wn) date) unknown) (unknown) (no (unknown) (unknown) Temperature 97.3 (units (unknown) date) F L unknown) (unknown) (no (unknown) (unknown) Temperature 97.9 (units (unknown) date) F 97.7 F 97.6 F unknown) (unknown) (no (unknown) (unknown) Time Spent with (units (unknown) date) Patient unknown) (unknown) (no (unknown) (unknown) Time spent: (units (un known) date) Greater than 30 unknown) minutes (unknown) (no (unknown) (unknown) Total Bilirubin (units (unknown) date) 0.5 unknown) (unknown) (no (unknown) (unknown) Total Bilirubin (units (unknown) date) unknown) (unknown) (no (unknown) (unknown) Total Creatine (units (unknown) date) Kinase 29 L unknown) (unknown) (no (unknown) (unknown) Total Creatine (units (unknown) date) Kinase unknown) (unknown) (no (unknown) (unknown) Total Protein (units ( unknown) date) 8.1 unknown) (unknown) (no (unknown) (unknown) Total Protein (units ( unknown) date) unknown) (unknown) (no (unknown) (unknown) Troponin I < (units (u nknown) date) 0.012 unknown) (unknown) (no (unknown) (unknown) Troponin I (units (unk nown) date) unknown) (unknown) (no (unknown) (unknown) Underwent (units (unkn own) date) exercise unknown) non-nuclear stress test (unknown) (no (unknown) (unknown) VTE (units (unkno wn) date) unknown) (unknown) (no (unknown) (unknown) Vital Signs (units (un known) date) unknown) (unknown) (no (unknown) (unknown) WBC 7.6 (units (unkno wn) date) unknown) (unknown) (no (unknown) (unknown) WBC 9.3 (units (unkno wn) date) unknown) (unknown) (no (unknown) (unknown) WBC (units (unkno wn) date) unknown) (unknown) (no (unknown) (unknown) Ligia Banerjee, (units (unknown) date) RN [Primary Care unknown) Provider] (unknown) (no (unknown) (unknown) [Embedded Image (units (unknown) date) Not Available] unknown) (unknown) (no (unknown) (unknown) aspirin 81 mg (units ( unknown) date) Tablet,Delayed unknown) Release (Dr/Ec) (unknown) (no (unknown) (unknown) correctional probation officer who (units (unknown) date) said you should unknown) have an outpatient nuclear stress test, and (unknown) (no (unknown) (unknown) echocardiogram (units (unknown) date) were normal. unknown) Please start taking a baby aspirin daily. (unknown) (no (unknown) (unknown) for 30 years. (units ( unknown) date) She has a chronic unknown) cough but not worse. No NV, myalgias, LE (unknown) (no (unknown) (unknown) household (units (unkn own) date) members: spouse unknown) (unknown) (no (unknown) (unknown) presents with (units ( unknown) date) about 1 week of unknown) severe fatigue, LE heaviness, exertional chest (unknown) (no (unknown) (unknown) pressure (units (unkno wn) date) radiating to left unknown) shoulder and SOB. States she hasn't had these (unknown) (no (unknown) (unknown) strong family (units (u nknown) date) history of CAD. unknown) Has smoked up to 1ppd for 60 years. No alcohol use (unknown) (no (unknown) (unknown) swelling, or (units (u nknown) date) diarrhea. Says unknown) she has had monitoring of her thyroid labs. (unknown) (no (unknown) (unknown) symptoms before. (units (unknown) date) Chest pain is unknown) worse with activity and better at rest. She has a (unknown) (no (unknown) (unknown) that you are (units (u nknown) date) safe to discharge unknown) for now given your heart enzyme and (unknown) (no (unknown) (unknown) very high (units (unkn own) date) unknown) (unknown) (no (unknown) (unknown) was normal (units (unk nown) date) unknown) (unknown) (no (unknown) (unknown) work hard enough (units (unknown) date) to make it as unknown) accurate as it could be. I spoke with a Result panel 28 (unknown) (no (unknown) (unknown) (no value) (units (unk nown) date) unknown) (unknown) (no (unknown) (unknown) # acute chest (units ( unknown) date) pain and fatigue unknown) (unknown) (no (unknown) (unknown) # (units (unkno wn) date) hyperlipidemia, unknown) chronic (unknown) (no (unknown) (unknown) # hypertensive (units (unknown) date) urgency unknown) (unknown) (no (unknown) (unknown) # (units (unkno wn) date) hypothyroidism, unknown) chronic (unknown) (no (unknown) (unknown) # tobacco (units (unkn own) date) dependence unknown) (unknown) (no (unknown) (unknown) (past 8 hours): (units (unknown) date) unknown) (unknown) (no (unknown) (unknown) -60 year smoker, (units (unknown) date) currently smoking unknown) 5-6 cigarettes per day (unknown) (no (unknown) (unknown) -BP over 200 (units (u nknown) date) systolic in ED, unknown) patient reports compliance with her home losartan (unknown) (no (unknown) (unknown) -CTA negative (units ( unknown) date) for aortic unknown) dissection and PE (unknown) (no (unknown) (unknown) -TSH mildly (units (un known) date) elevated at 6, unknown) will not adjust synthroid (unknown) (no (unknown) (unknown) -at high risk (units ( unknown) date) for CAD with unknown) strong family history, age and smoking history (unknown) (no (unknown) (unknown) -continue home (units (unknown) date) Synthroid unknown) (unknown) (no (unknown) (unknown) -continue home (units (unknown) date) losartan 25 mg unknown) daily (unknown) (no (unknown) (unknown) -continue home (units (unknown) date) statin unknown) (unknown) (no (unknown) (unknown) -echo with EF (units ( unknown) date) 60-65% and no unknown) focal WMA's (unknown) (no (unknown) (unknown) -encouraged (units (un known) date) cessation unknown) (unknown) (no (unknown) (unknown) -exercise stress (units (unknown) date) test was normal unknown) with non-specific ST changes but suboptimal as (unknown) (no (unknown) (unknown) -hydralazine IV (units (unknown) date) as needed, avoid unknown) labetalol as can alter stress test results (unknown) (no (unknown) (unknown) -improved to (units (u nknown) date) 150's systolic unknown) (unknown) (no (unknown) (unknown) -patient noted (units (unknown) date) fatigue improved unknown) during hospital stay (unknown) (no (unknown) (unknown) -patient notes (units (unknown) date) chest pain is unknown) exertional, however reproducible on exam (unknown) (no (unknown) (unknown) -recommended (units (u nknown) date) outpatient PCP unknown) f/u to adjust BP meds (unknown) (no (unknown) (unknown) -spoke with (units (un known) date) cardiology who unknown) recommended outpatient nuc med stress test as echo (unknown) (no (unknown) (unknown) -start aspirin (units (unknown) date) 81 mg daily unknown) (unknown) (no (unknown) (unknown) -troponin (units (unkn own) date) negative x3 unknown) (unknown) (no (unknown) (unknown) 02:15 02:15 (units (un known) date) 02:15 unknown) (unknown) (no (unknown) (unknown) 02:20 04/21/22 (units (unknown) date) unknown) (unknown) (no (unknown) (unknown) 02:42 04/21/22 (units (unknown) date) unknown) (unknown) (no (unknown) (unknown) 04:00 (units (unkno wn) date) unknown) (unknown) (no (unknown) (unknown) 07:00 04/21/22 (units (unknown) date) unknown) (unknown) (no (unknown) (unknown) 07:45 (units (unkno wn) date) unknown) (unknown) (no (unknown) (unknown) 08:23 04/21/22 (units (unknown) date) unknown) (unknown) (no (unknown) (unknown) 04/20/22 (units (unkno wn) date) 04/20/22 04/20/22 unknown) (unknown) (no (unknown) (unknown) 04/20/22 18:22 (units (unknown) date) unknown) (unknown) (no (unknown) (unknown) 04/20/22 18:51 (units (unknown) date) unknown) (unknown) (no (unknown) (unknown) 04/21/22 02:15 (units (unknown) date) unknown) (unknown) (no (unknown) (unknown) 04/21/22 (units (unkno wn) date) 04/21/22 04/21/22 unknown) (unknown) (no (unknown) (unknown) 04/21/22 1534 (units ( unknown) date) unknown) (unknown) (no (unknown) (unknown) 04/21/22 (units (unkno wn) date) unknown) (unknown) (no (unknown) (unknown) 16:20 16:22 (units (un known) date) 16:22 unknown) (unknown) (no (unknown) (unknown) 16:22 16:22 (units (un known) date) 16:22 unknown) (unknown) (no (unknown) (unknown) 16:22 19:26 (units (un known) date) 20:20 unknown) (unknown) (no (unknown) (unknown) 208/101 so nitro (units (unknown) date) patch applied. unknown) Labs were unremarkable. (unknown) (no (unknown) (unknown) 4900 (units (unkno wn) date) unknown) (unknown) (no (unknown) (unknown) 81 mg PO DAILY (units (unknown) date) Qty: 90 0RF unknown) (unknown) (no (unknown) (unknown) ABD: soft, (units (unk nown) date) nontender, unknown) nondistended, no organomegaly (unknown) (no (unknown) (unknown) ALT 12 (units (unkno wn) date) unknown) (unknown) (no (unknown) (unknown) ALT (units (unkno wn) date) unknown) (unknown) (no (unknown) (unknown) APTT 28 (units (unkno wn) date) unknown) (unknown) (no (unknown) (unknown) APTT (units (unkno wn) date) unknown) (unknown) (no (unknown) (unknown) AST 25 (units (unkno wn) date) unknown) (unknown) (no (unknown) (unknown) AST (units (unkno wn) date) unknown) (unknown) (no (unknown) (unknown) Admitted with (units ( unknown) date) fatigue and unknown) exertional substernal CP. Chest pain reproducible on (unknown) (no (unknown) (unknown) Age/Sex: 81 / F (units (unknown) date) unknown) (unknown) (no (unknown) (unknown) Albumin 4.6 (units (un known) date) unknown) (unknown) (no (unknown) (unknown) Albumin (units (unkno wn) date) unknown) (unknown) (no (unknown) (unknown) Albumin/Globulin (units (unknown) date) Ratio 1.3 unknown) (unknown) (no (unknown) (unknown) Albumin/Globulin (units (unknown) date) Ratio unknown) (unknown) (no (unknown) (unknown) Alkaline (units (unkno wn) date) Phosphatase 68 unknown) (unknown) (no (unknown) (unknown) Alkaline (units (unkno wn) date) Phosphatase unknown) (unknown) (no (unknown) (unknown) Attending (units (unkn own) date) Provider: unknown) Viktor Wise (unknown) (no (unknown) (unknown) BUN 16 (units (unkno wn) date) unknown) (unknown) (no (unknown) (unknown) BUN 17 (units (unkno wn) date) unknown) (unknown) (no (unknown) (unknown) BUN (units (unkno wn) date) unknown) (unknown) (no (unknown) (unknown) BUN/Creatinine (units (unknown) date) Ratio 20.5 unknown) (unknown) (no (unknown) (unknown) BUN/Creatinine (units (unknown) date) Ratio 23.5 H unknown) (unknown) (no (unknown) (unknown) BUN/Creatinine (units (unknown) date) Ratio unknown) (unknown) (no (unknown) (unknown) Baso # (Auto) (units ( unknown) date) 100 unknown) (unknown) (no (unknown) (unknown) Baso # (Auto) (units ( unknown) date) unknown) (unknown) (no (unknown) (unknown) Baso % (Auto) (units ( unknown) date) 1.2 unknown) (unknown) (no (unknown) (unknown) Baso % (Auto) (units ( unknown) date) 1.5 unknown) (unknown) (no (unknown) (unknown) Baso % (Auto) (units ( unknown) date) unknown) (unknown) (no (unknown) (unknown) Blood Pressure (units (unknown) date) 145/82 H 145/82 H unknown) (unknown) (no (unknown) (unknown) Blood Pressure (units (unknown) date) 156/78 H 129/71 unknown) (unknown) (no (unknown) (unknown) CK-MB (CK-2) Rel (units (unknown) date) Index TNP unknown) (unknown) (no (unknown) (unknown) CK-MB (CK-2) Rel (units (unknown) date) Index unknown) (unknown) (no (unknown) (unknown) CK-MB (CK-2) TNP (units (unknown) date) unknown) (unknown) (no (unknown) (unknown) CK-MB (CK-2) (units (u nknown) date) unknown) (unknown) (no (unknown) (unknown) CV: regular rate (units (unknown) date) and rhythm, no unknown) murmurs, reproducible chest pain to palpation (unknown) (no (unknown) (unknown) Calcium 8.2 L (units ( unknown) date) unknown) (unknown) (no (unknown) (unknown) Calcium 9.3 (units (un known) date) unknown) (unknown) (no (unknown) (unknown) Calcium (units (unkno wn) date) unknown) (unknown) (no (unknown) (unknown) Carbon Dioxide (units (unknown) date) 23 unknown) (unknown) (no (unknown) (unknown) Carbon Dioxide (units (unknown) date) 26 unknown) (unknown) (no (unknown) (unknown) Carbon Dioxide (units (unknown) date) unknown) (unknown) (no (unknown) (unknown) Cataracts, (units (unk nown) date) bilateral unknown) (unknown) (no (unknown) (unknown) Chief complaint: (units (unknown) date) cardiac issues unknown) (unknown) (no (unknown) (unknown) Chloride 105 (units (u nknown) date) unknown) (unknown) (no (unknown) (unknown) Chloride 109 H (units (unknown) date) unknown) (unknown) (no (unknown) (unknown) Chloride (units (unkno wn) date) unknown) (unknown) (no (unknown) (unknown) Comment: (units (unkno wn) date) unknown) (unknown) (no (unknown) (unknown) Consult to (units (unk nown) date) Physical Therapy unknown) Evaluate + Treat (unknown) (no (unknown) (unknown) Consults: (units (unkn own) date) unknown) (unknown) (no (unknown) (unknown) Creatinine 0.68 (units (unknown) date) unknown) (unknown) (no (unknown) (unknown) Creatinine 0.83 (units (unknown) date) unknown) (unknown) (no (unknown) (unknown) Creatinine (units (unk nown) date) unknown) (unknown) (no (unknown) (unknown) D-Dimer 728 H (units ( unknown) date) unknown) (unknown) (no (unknown) (unknown) D-Dimer (units (unkno wn) date) unknown) (unknown) (no (unknown) (unknown) : 1940 (units (unknown) date) Acct:[id number] unknown) (unknown) (no (unknown) (unknown) Date of Service: (units (unknown) date) 04/20/22 unknown) (unknown) (no (unknown) (unknown) Date of (units (unkno wn) date) admission: unknown) (unknown) (no (unknown) (unknown) Deep Vein (units (unkn own) date) Thrombosis/Pulmon unknown) arabella Embolism Present on Admission: No (unknown) (no (unknown) (unknown) Discharge Data (units (unknown) date) unknown) (unknown) (no (unknown) (unknown) Discharge Date: (units (unknown) date) 04/21/22 unknown) (unknown) (no (unknown) (unknown) Discharge (units (unkn own) date) Diagnosis: unknown) (unknown) (no (unknown) (unknown) Discharge Plan (units (unknown) date) unknown) (unknown) (no (unknown) (unknown) Discharge (units (unkn own) date) Providers unknown) (unknown) (no (unknown) (unknown) Discharge (units (unkn own) date) Summary unknown) (unknown) (no (unknown) (unknown) Discharge orders (units (unknown) date) + Medications unknown) (unknown) (no (unknown) (unknown) Discharge (units (unkn own) date) provider: unknown) (unknown) (no (unknown) (unknown) EXT: warm and (units ( unknown) date) well perfused unknown) with no edema (unknown) (no (unknown) (unknown) Eos # (Auto) 100 (units (unknown) date) unknown) (unknown) (no (unknown) (unknown) Eos # (Auto) 200 (units (unknown) date) unknown) (unknown) (no (unknown) (unknown) Eos # (Auto) (units (u nknown) date) unknown) (unknown) (no (unknown) (unknown) Eos % (Auto) 1.1 (units (unknown) date) L unknown) (unknown) (no (unknown) (unknown) Eos % (Auto) 2.2 (units (unknown) date) unknown) (unknown) (no (unknown) (unknown) Eos % (Auto) (units (u nknown) date) unknown) (unknown) (no (unknown) (unknown) Estimated GFR > (units (unknown) date) 60 unknown) (unknown) (no (unknown) (unknown) Estimated GFR (units ( unknown) date) unknown) (unknown) (no (unknown) (unknown) Exam Narrative: (units (unknown) date) unknown) (unknown) (no (unknown) (unknown) Exam (units (unkno wn) date) unknown) (unknown) (no (unknown) (unknown) Family History (units (unknown) date) (Updated 04/20/22 unknown) @ 18:25 by Joseph Samuels MD) (unknown) (no (unknown) (unknown) Follow (units (unkno wn) date) up/Referrals: unknown) (unknown) (no (unknown) (unknown) Free T4 1.76 (units (u nknown) date) unknown) (unknown) (no (unknown) (unknown) Free T4 (units (unkno wn) date) unknown) (unknown) (no (unknown) (unknown) GEN: no acute (units ( unknown) date) distress unknown) (unknown) (no (unknown) (unknown) Globulin 3.5 (units (u nknown) date) unknown) (unknown) (no (unknown) (unknown) Globulin (units (unkno wn) date) unknown) (unknown) (no (unknown) (unknown) Glucose 85 (units (unk nown) date) unknown) (unknown) (no (unknown) (unknown) Glucose 90 (units (unk nown) date) unknown) (unknown) (no (unknown) (unknown) Glucose (units (unkno wn) date) unknown) (unknown) (no (unknown) (unknown) H/O: (units (unkno wn) date) hysterectomy unknown) (unknown) (no (unknown) (unknown) HEENT: moist (units (u nknown) date) mucous membranes, unknown) PERRL (unknown) (no (unknown) (unknown) Hct 38.3 (units (unkno wn) date) unknown) (unknown) (no (unknown) (unknown) Hct 45.6 (units (unkno wn) date) unknown) (unknown) (no (unknown) (unknown) Hct (units (unkno wn) date) unknown) (unknown) (no (unknown) (unknown) Hemoglobin A1c (units (unknown) date) 5.5 unknown) (unknown) (no (unknown) (unknown) Hemoglobin A1c (units (unknown) date) unknown) (unknown) (no (unknown) (unknown) Hgb 13.2 (units (unkno wn) date) unknown) (unknown) (no (unknown) (unknown) Hgb 15.2 (units (unkno wn) date) unknown) (unknown) (no (unknown) (unknown) Hgb (units (unkno wn) date) unknown) (unknown) (no (unknown) (unknown) History of (units (unk nown) date) Present Illness unknown) (unknown) (no (unknown) (unknown) Hospital Course (units (unknown) date) unknown) (unknown) (no (unknown) (unknown) Hospital Course: (units (unknown) date) unknown) (unknown) (no (unknown) (unknown) Hypertension (units (u nknown) date) unknown) (unknown) (no (unknown) (unknown) Hypothyroidism (units (unknown) date) unknown) (unknown) (no (unknown) (unknown) INR 1.1 (units (unkno wn) date) unknown) (unknown) (no (unknown) (unknown) INR (units (unkno wn) date) unknown) (unknown) (no (unknown) (unknown) In the ED (units (unkn own) date) patient had a unknown) normal ECG with normal troponin. BP elevated up to (unknown) (no (unknown) (unknown) [facility] (units (unknown) date) [address] unknown) [place] [address] (unknown) (no (unknown) (unknown) Laboratory (units (unk nown) date) Results - last 24 unknown) hr (unknown) (no (unknown) (unknown) Labs (units (unkno wn) date) unknown) (unknown) (no (unknown) (unknown) Labs: (units (unkno wn) date) unknown) (unknown) (no (unknown) (unknown) Tiffany Alfaro is an (units (unknown) date) 81yo F with PMH unknown) of HTN, HLD, mild COPD and hypothryoidism who (unknown) (no (unknown) (unknown) Lipase 112 (units (unk nown) date) unknown) (unknown) (no (unknown) (unknown) Lipase (units (unkno wn) date) unknown) (unknown) (no (unknown) (unknown) Lymph # (Auto) (units (unknown) date) 3000 unknown) (unknown) (no (unknown) (unknown) Lymph # (Auto) (units (unknown) date) 3100 unknown) (unknown) (no (unknown) (unknown) Lymph # (Auto) (units (unknown) date) unknown) (unknown) (no (unknown) (unknown) Lymph % (Auto) (units (unknown) date) 33.3 unknown) (unknown) (no (unknown) (unknown) Lymph % (Auto) (units (unknown) date) 40.0 unknown) (unknown) (no (unknown) (unknown) Lymph % (Auto) (units (unknown) date) unknown) (unknown) (no (unknown) (unknown) MCH 30.0 (units (unkno wn) date) unknown) (unknown) (no (unknown) (unknown) MCH 30.3 (units (unkno wn) date) unknown) (unknown) (no (unknown) (unknown) MCH (units (unkno wn) date) unknown) (unknown) (no (unknown) (unknown) MCHC 33.4 (units (unkn own) date) unknown) (unknown) (no (unknown) (unknown) MCHC 34.4 (units (unkn own) date) unknown) (unknown) (no (unknown) (unknown) MCHC (units (unkno wn) date) unknown) (unknown) (no (unknown) (unknown) MCV 88.3 (units (unkno wn) date) unknown) (unknown) (no (unknown) (unknown) MCV 89.7 (units (unkno wn) date) unknown) (unknown) (no (unknown) (unknown) MCV (units (unkno wn) date) unknown) (unknown) (no (unknown) (unknown) Magnesium 2.0 (units ( unknown) date) unknown) (unknown) (no (unknown) (unknown) Magnesium (units (unkn own) date) unknown) (unknown) (no (unknown) (unknown) Ligia Banerjee, (units (unknown) date) RN unknown) (unknown) (no (unknown) (unknown) Viktor Sotomayor Haresh, (units (unknown) date) DO unknown) (unknown) (no (unknown) (unknown) Medical History (units (unknown) date) (Updated 04/20/22 unknown) @ 18:38 by Joseph Samuels MD) (unknown) (no (unknown) (unknown) [place] # (Auto) (units ( unknown) date) 400 unknown) (unknown) (no (unknown) (unknown) [place] # (Auto) (units ( unknown) date) 500 unknown) (unknown) (no (unknown) (unknown) [place] # (Auto) (units ( unknown) date) unknown) (unknown) (no (unknown) (unknown) [place] % (Auto) (units ( unknown) date) 5.4 unknown) (unknown) (no (unknown) (unknown) [place] % (Auto) (units ( unknown) date) 5.5 unknown) (unknown) (no (unknown) (unknown) [place] % (Auto) (units ( unknown) date) unknown) (unknown) (no (unknown) (unknown) NECK: trachea (units ( unknown) date) midline, no JVD unknown) (unknown) (no (unknown) (unknown) NEURO: awake, (units ( unknown) date) alert, oriented, unknown) no focal deficits (unknown) (no (unknown) (unknown) NT-Pro-B (units (unkno wn) date) Natriuret Pep 79 unknown) (unknown) (no (unknown) (unknown) NT-Pro-B (units (unkno wn) date) Natriuret Pep unknown) (unknown) (no (unknown) (unknown) Narrative (units (unkn own) date) unknown) (unknown) (no (unknown) (unknown) Narrative: (units (unk nown) date) unknown) (unknown) (no (unknown) (unknown) Neut # (Auto) (units ( unknown) date) 3900 unknown) (unknown) (no (unknown) (unknown) Neut # (Auto) (units ( unknown) date) 5400 unknown) (unknown) (no (unknown) (unknown) Neut # (Auto) (units ( unknown) date) unknown) (unknown) (no (unknown) (unknown) Neut % (Auto) (units ( unknown) date) 51.2 unknown) (unknown) (no (unknown) (unknown) Neut % (Auto) (units ( unknown) date) 58.6 unknown) (unknown) (no (unknown) (unknown) Neut % (Auto) (units ( unknown) date) unknown) (unknown) (no (unknown) (unknown) New (units (unkno wn) date) unknown) (unknown) (no (unknown) (unknown) Objective (units (unkn own) date) unknown) (unknown) (no (unknown) (unknown) Other Cardiac (units ( unknown) date) disease unknown) (unknown) (no (unknown) (unknown) Oxygen Delivery (units (unknown) date) Method Room Air unknown) (unknown) (no (unknown) (unknown) Oxygen Delivery (units (unknown) date) Method unknown) (unknown) (no (unknown) (unknown) Oxygen Flow Rate (units (unknown) date) 0 unknown) (unknown) (no (unknown) (unknown) PFSH (units (unkno wn) date) unknown) (unknown) (no (unknown) (unknown) PT 12.2 (units (unkno wn) date) unknown) (unknown) (no (unknown) (unknown) PT (units (unkno wn) date) unknown) (unknown) (no (unknown) (unknown) PULM: clear (units (un known) date) bilaterally unknown) (unknown) (no (unknown) (unknown) Patient (units (unkno wn) date) Disposition: Home unknown) (unknown) (no (unknown) (unknown) Patient: (units (unkno wn) date) LeighannTiffany rangel Juan Carlos MR#: unknown) [id number] (unknown) (no (unknown) (unknown) Physician (units (unkn own) date) Instructions: unknown) Evaluate and Treat (unknown) (no (unknown) (unknown) Plt Count 136 L (units (unknown) date) unknown) (unknown) (no (unknown) (unknown) Plt Count 169 (units ( unknown) date) unknown) (unknown) (no (unknown) (unknown) Plt Count (units (unkn own) date) unknown) (unknown) (no (unknown) (unknown) Potassium 3.8 (units ( unknown) date) unknown) (unknown) (no (unknown) (unknown) Potassium 4.3 (units ( unknown) date) unknown) (unknown) (no (unknown) (unknown) Potassium (units (unkn own) date) unknown) (unknown) (no (unknown) (unknown) Prescriptions: (units (unknown) date) unknown) (unknown) (no (unknown) (unknown) Primary Care (units (u nknown) date) Provider: unknown) Ligia Banerjee (unknown) (no (unknown) (unknown) Primary care (units (u nknown) date) physician: unknown) (unknown) (no (unknown) (unknown) Provider (units (unkno wn) date) Discharge unknown) Comment: Your stress test was normal but you didn't quite (unknown) (no (unknown) (unknown) Provider (units (unkno wn) date) unknown) (unknown) (no (unknown) (unknown) Provider: (units (unkn own) date) Viktor Wise unknown) D.O. (unknown) (no (unknown) (unknown) Pulse Oximetry (units (unknown) date) 96 95 unknown) (unknown) (no (unknown) (unknown) Pulse Oximetry (units (unknown) date) 96 unknown) (unknown) (no (unknown) (unknown) Pulse Rate 60 60 (units (unknown) date) unknown) (unknown) (no (unknown) (unknown) Pulse Rate 67 56 (units (unknown) date) L unknown) (unknown) (no (unknown) (unknown) Quality (units (unkno wn) date) unknown) (unknown) (no (unknown) (unknown) RBC 4.34 (units (unkno wn) date) unknown) (unknown) (no (unknown) (unknown) RBC 5.08 (units (unkno wn) date) unknown) (unknown) (no (unknown) (unknown) RBC (units (unkno wn) date) unknown) (unknown) (no (unknown) (unknown) RDW 14.0 (units (unkno wn) date) unknown) (unknown) (no (unknown) (unknown) RDW 14.3 (units (unkno wn) date) unknown) (unknown) (no (unknown) (unknown) RDW (units (unkno wn) date) unknown) (unknown) (no (unknown) (unknown) Respiratory Rate (units (unknown) date) 17 unknown) (unknown) (no (unknown) (unknown) Respiratory Rate (units (unknown) date) 18 16 unknown) (unknown) (no (unknown) (unknown) Result Diagrams: (units (unknown) date) unknown) (unknown) (no (unknown) (unknown) SARS-CoV-2 (PCR) (units (unknown) date) Negative unknown) (unknown) (no (unknown) (unknown) SARS-CoV-2 (PCR) (units (unknown) date) unknown) (unknown) (no (unknown) (unknown) Signed (units (unkno wn) date) By:<Electronicall unknown) y signed by Adeline CatesOAlayna> (unknown) (no (unknown) (unknown) Smoking Status: (units (unknown) date) Current every day unknown) smoker (unknown) (no (unknown) (unknown) Social History (units (unknown) date) (Reviewed unknown) 04/20/22 @ 18:25 by Joseph Samuels MD) (unknown) (no (unknown) (unknown) Sodium 138 (units (unk nown) date) unknown) (unknown) (no (unknown) (unknown) Sodium 140 (units (unk nown) date) unknown) (unknown) (no (unknown) (unknown) Sodium (units (unkno wn) date) unknown) (unknown) (no (unknown) (unknown) Summary (units (unkno wn) date) unknown) (unknown) (no (unknown) (unknown) Surgical History (units (unknown) date) (Updated 04/20/22 unknown) @ 18:26 by Joseph Samuels MD) (unknown) (no (unknown) (unknown) TSH 6.66 H (units (unk nown) date) unknown) (unknown) (no (unknown) (unknown) TSH (units (unkno wn) date) unknown) (unknown) (no (unknown) (unknown) Temperature 97.3 (units (unknown) date) F L unknown) (unknown) (no (unknown) (unknown) Temperature 97.9 (units (unknown) date) F 97.7 F 97.6 F unknown) (unknown) (no (unknown) (unknown) Time Spent with (units (unknown) date) Patient unknown) (unknown) (no (unknown) (unknown) Time spent: (units (un known) date) Greater than 30 unknown) minutes (unknown) (no (unknown) (unknown) Total Bilirubin (units (unknown) date) 0.5 unknown) (unknown) (no (unknown) (unknown) Total Bilirubin (units (unknown) date) unknown) (unknown) (no (unknown) (unknown) Total Creatine (units (unknown) date) Kinase 29 L unknown) (unknown) (no (unknown) (unknown) Total Creatine (units (unknown) date) Kinase unknown) (unknown) (no (unknown) (unknown) Total Protein (units ( unknown) date) 8.1 unknown) (unknown) (no (unknown) (unknown) Total Protein (units ( unknown) date) unknown) (unknown) (no (unknown) (unknown) Troponin I < (units (u nknown) date) 0.012 unknown) (unknown) (no (unknown) (unknown) Troponin I (units (unk nown) date) unknown) (unknown) (no (unknown) (unknown) VTE (units (unkno wn) date) unknown) (unknown) (no (unknown) (unknown) Vital Signs (units (un known) date) unknown) (unknown) (no (unknown) (unknown) WBC 7.6 (units (unkno wn) date) unknown) (unknown) (no (unknown) (unknown) WBC 9.3 (units (unkno wn) date) unknown) (unknown) (no (unknown) (unknown) WBC (units (unkno wn) date) unknown) (unknown) (no (unknown) (unknown) Ligia Banerjee, (units (unknown) date) RN [Primary Care unknown) Provider] (unknown) (no (unknown) (unknown) [Embedded Image (units (unknown) date) Not Available] unknown) (unknown) (no (unknown) (unknown) adjustment, (units (un known) date) nuclear stress unknown) test and further workup of her fatigue and chest (unknown) (no (unknown) (unknown) admission. TSH (units (unknown) date) mildly elevated. unknown) Discharged to f/u with PCP for synthroid (unknown) (no (unknown) (unknown) and trops (units (unkn own) date) negative x3. unknown) Spoke with cardiology who recommended outpatient nuclear (unknown) (no (unknown) (unknown) aspirin 81 mg (units ( unknown) date) Tablet,Delayed unknown) Release (Dr/Ec) (unknown) (no (unknown) (unknown) but HR did not (units (unknown) date) get up very high unknown) so was suboptimal. Echo was completely normal (unknown) (no (unknown) (unknown) correctional probation officer who (units (unknown) date) said you should unknown) have an outpatient nuclear stress test, and (unknown) (no (unknown) (unknown) echocardiogram (units (unknown) date) were normal. unknown) Please start taking a baby aspirin daily. (unknown) (no (unknown) (unknown) exam. Underwent (units (unknown) date) exercise unknown) non-nuclear stress test and had mild chest pain during (unknown) (no (unknown) (unknown) for 30 years. (units ( unknown) date) She has a chronic unknown) cough but not worse. No NV, myalgias, LE (unknown) (no (unknown) (unknown) household (units (unkn own) date) members: spouse unknown) (unknown) (no (unknown) (unknown) pain, also (units (unk nown) date) adjustment of BP unknown) meds. (unknown) (no (unknown) (unknown) patient could (units ( unknown) date) not get HR up unknown) very high (unknown) (no (unknown) (unknown) presents with (units ( unknown) date) about 1 week of unknown) severe fatigue, LE heaviness, exertional chest (unknown) (no (unknown) (unknown) pressure (units (unkno wn) date) radiating to left unknown) shoulder and SOB. States she hasn't had these (unknown) (no (unknown) (unknown) stress test. (units (u nknown) date) Will start unknown) aspirin 81mg daily. Patient's fatigue improved during (unknown) (no (unknown) (unknown) strong family (units (u nknown) date) history of CAD. unknown) Has smoked up to 1ppd for 60 years. No alcohol use (unknown) (no (unknown) (unknown) swelling, or (units (u nknown) date) diarrhea. Says unknown) she has had monitoring of her thyroid labs. (unknown) (no (unknown) (unknown) symptoms before. (units (unknown) date) Chest pain is unknown) worse with activity and better at rest. She has a (unknown) (no (unknown) (unknown) that you are (units (u nknown) date) safe to discharge unknown) for now given your heart enzyme and (unknown) (no (unknown) (unknown) was normal (units (unk nown) date) unknown) (unknown) (no (unknown) (unknown) work hard enough (units (unknown) date) to make it as unknown) accurate as it could be. I spoke with a Result panel 29 (unknown) (no (unknown) (unknown) (no value) (units (unk nown) date) unknown) (unknown) (no (unknown) (unknown) 10, 2in (units (unkno wn) date) intensity, and unknown) improved in recovery, along with some shortness of (unknown) (no (unknown) (unknown) [address] (units (unkn own) date) Street unknown) (unknown) (no (unknown) (unknown) [address] (units (unkno wn) date) unknown) (unknown) (no (unknown) (unknown) Accession (units (unkn own) date) Number: unknown) (unknown) (no (unknown) (unknown) Age/Sex: 81 / F (units (unknown) date) Date of Service: unknown) (unknown) (no (unknown) (unknown) IVA [place] (units ( unknown) date) [id number] unknown) (unknown) (no (unknown) (unknown) CARDIAC STRESS: (units (unknown) date) The patient unknown) initially walked on Jeremias protocol, however, she (unknown) (no (unknown) (unknown) CONCLUSION: (units (un known) date) Exercise stress unknown) test did not reveal any obvious inducible (unknown) (no (unknown) (unknown) COPIES MNE: (units (un known) date) PALV; unknown) (unknown) (no (unknown) (unknown) DATE OF (units (unkno wn) date) SERVICE: unknown) 04/21/2022 (unknown) (no (unknown) (unknown) DICTATING (units (unkn own) date) MD/COPIES TO: unknown) Tabatha Gaming MD (unknown) (no (unknown) (unknown) : 1940 (units (unknown) date) Acct:[id number] unknown) (unknown) (no (unknown) (unknown) Draft (units (unkno wn) date) unknown) (unknown) (no (unknown) (unknown) However, the (units (u nknown) date) patient has very unknown) poor exercise tolerance. She achieved 3.5 (unknown) (no (unknown) (unknown) INDICATION: (units (un known) date) Chest unknown) discomfort, hypertension, hyperlipidemia, shortness of (unknown) (no (unknown) (unknown) [facility] (units (unknown) date) unknown) (unknown) (no (unknown) (unknown) Loc: AC 225-1 (units ( unknown) date) unknown) (unknown) (no (unknown) (unknown) Nuclear (units (unkno wn) date) Medicine Report unknown) (unknown) (no (unknown) (unknown) Ordering (units (unkno wn) date) Provider: unknown) (unknown) (no (unknown) (unknown) PROCEDURE: (units (unk nown) date) Exercise stress unknown) test. (unknown) (no (unknown) (unknown) Patient: (units (unkno wn) date) Tiffany Alfaro L unknown) MR#: [id number] (unknown) (no (unknown) (unknown) Procedure: (units (unk nown) date) unknown) (unknown) (no (unknown) (unknown) MILITARY LAWYER/fn/lc (units (unkno wn) date) unknown) (unknown) (no (unknown) (unknown) Leighannjuan carlosTiffany - (units ( unknown) date) unknown) (unknown) (no (unknown) (unknown) breath. (units (unkno wn) date) unknown) (unknown) (no (unknown) (unknown) changes seen. (units ( unknown) date) She had some unknown) PACs without any sustained ventricular tachycardia (unknown) (no (unknown) (unknown) changes. Some (units ( unknown) date) premature atrial unknown) contractions without any obvious atrial (unknown) (no (unknown) (unknown) could not walk (units (unknown) date) on Jeremias unknown) protocol. She had modified Jeremias protocol. Overall, (unknown) (no (unknown) (unknown) dd: 04/21/2022 (units (unknown) date) 12:55:00 dt: unknown) 04/21/2022 17:27:00 (unknown) (no (unknown) (unknown) discomfort (units (unk nown) date) during exercise, unknown) which was mild without any significant ischemic (unknown) (no (unknown) (unknown) doc#: (units (unkno wn) date) [id number]/job#: unknown) [id number] (unknown) (no (unknown) (unknown) fibrillation or (units (unknown) date) ventricular unknown) tachycardia. Correlate clinically and if pre-test (unknown) (no (unknown) (unknown) ischemia. (units (unkn own) date) unknown) (unknown) (no (unknown) (unknown) metabolic (units (unkn own) date) equivalents of unknown) workload. Flat blood pressure response. Chest (unknown) (no (unknown) (unknown) modality. (units (unkn own) date) Discussed the unknown) plan with Dr. Eagle Wise. (unknown) (no (unknown) (unknown) or atrial (units (unkn own) date) fibrillation. unknown) She had mild chest discomfort, which on a scale of 1 (unknown) (no (unknown) (unknown) percent of (units (unk nown) date) target heart unknown) rate with maximum heart rate of 138. Baseline blood (unknown) (no (unknown) (unknown) pressure (units (unkno wn) date) 168/90, which unknown) was flat without any significant rise. Baseline rhythm (unknown) (no (unknown) (unknown) probability is (units (unknown) date) high, consider unknown) repeating exercise stress test with imaging (unknown) (no (unknown) (unknown) remained having (units (unknown) date) some nonspecific unknown) ST changes. However, no convincing ischemic (unknown) (no (unknown) (unknown) she walked (units (unk nown) date) about 5 minutes unknown) and 19 seconds, achieved 3.5 METs of workload and 99 (unknown) (no (unknown) (unknown) to (units (unkno wn) date) unknown) (unknown) (no (unknown) (unknown) was sinus with (units (unknown) date) some nonspecific unknown) ST-T changes. During exercise, the patient Social History No information. Vital Signs date measurement value units +0000 BMI BMI 27.75 kg/m2 [id number] BP_diastolic BP_diastolic 87 mmHg [id number] BP_systolic BP_systolic 145 mmHg [id number] heart_rate heart_rate 84 /min [id number] height_metric height_metric 167 cm [id number] height_standard height_standard 65.75 in [id number] respiration_rate respiration_rate 16 /min [id number] temperature_metric temperature_metric 36.28 C [id number]+0000 temperature_standard temperature_standard 9 7.3 F +0000 weight_metric weight_metric 77.11 kg [id number]+0000 weight_standard weight_standard 170 lb
--- NOTE | 2022-06-04 14:26 | ED Physician Documentation ---
PD HPI CHEST PAIN - Stated complaint Stated Complaint: R SIDE OF THE BODY PX - Chief complaint Chief Complaint: Back Pain - History obtained from History obtained from: Patient - History of Present Illness Timing - onset: How many days ago (2) Timing - onset during: Rest Timing - duration: Days (2) Timing - details: Gradual onset, Still present Quality: Aching, Sharp, Pain Location: Right chest, Upper back. No: Left chest Radiation: Back (initiated in mid right back with pain wrapping around to right side below breast/to upper right abd. pain with palpation of area, breathing, moving. no injury. no nausea/vomiting. no change with eating.). No: Jaw, Neck Improved by: No: Rest Worsened by: Inspiration, Movement, Palpation. No: Exertion, Eating Associated symptoms: No: Shortness of air, Nausea, Vomiting, Feeling faint / dizzy, Cough Similar symptoms before: Has not had sx before Recently seen: Clinic (went to [facility] and referred to ER for further eval of chest/abd pain. They did note some redness in blotches on right back in area of pain but thought it from heating pad she had used.) Review of Systems Constitutional: denies: Fever, Chills, Myalgias Nose: denies: Rhinorrhea / runny nose, Congestion Throat: denies: Sore throat Cardiac: reports: Chest pain / pressure (riht thoracic approx t6 level around to under right breast/upper abd extending to right parasternal area in bandlike distributions.). denies: Palpitations, Pedal edema, Calf pain Respiratory: denies: Dyspnea, Cough, Wheezing GI: reports: Abdominal Pain. denies: Nausea, Vomiting, Diarrhea Skin: reports: Rash (right thoracic back in area of pain. very tender at area.) Neurologic: denies: Generalized weakness, Focal weakness, Numbness PD PAST MEDICAL HISTORY - Past Medical History Cardiovascular: Hypertension Respiratory: None Neuro: Other Endocrine/Autoimmune: HyPOthyroidism GI: None : None HEENT: None Psych: Anxiety, Panic attacks Musculoskeletal: Osteoarthritis Derm: None - Past Surgical History Past Surgical History: Yes /[employer]: Hysterectomy HEENT: Cataracts - Present Medications Home Medications: Ambulatory Orders Medication Instructions Recorded Confirmed Levothyroxine [Synthroid] 125 mcg PO QDAC 11/15/12 12/18/21 Cetirizine [ZyrTEC] 10 mg PO DAILY #15 tablet 12/18/21 dexAMETHasone [Decadron] 4 mg PO DAILY #5 tablet 12/18/21 Losartan Potassium 25 mg PO DAILY #30 tablet 04/16/22 Lidocaine Patch 5% [Lidoderm Patch] 1 patch TOP DAILY PRN #10 patch 06/04/22 Valacyclovir HCl [Valtrex] 1,000 mg PO TID #20 tablet 06/04/22 dexAMETHasone [Decadron] 4 mg PO DAILY #7 tablet 06/04/22 oxyCODONE [Roxicodone] 5 mg PO Q6H PRN #15 tablet 06/04/22 - Allergies Allergies/Adverse Reactions: Allergies Allergy/AdvReac Type Severity Reaction Status Date / Time No Known Drug Allergies Allergy Verified 06/04/22 12:54 - Social History Does the pt smoke?: Yes Smoking Status: Current every day smoker Does the pt drink ETOH?: No Does the pt have substance abuse?: No - Immunizations Immunizations are current?: Yes Immunizations: TDAP >10years/unknown - POLST Patient has POLST: No PD ED PE NORMAL - Vitals Vital signs reviewed: Yes - General General: Alert and oriented X 3, Well developed/nourished, Other (appears in considerable pain and distress. Not finding comfortable position. ) - Neck Neck: Supple, no meningeal sign, No adenopathy - Cardiac Cardiac: RRR, No murmur - Respiratory Respiratory: Clear bilaterally - Abdomen Abdomen: Normal bowel sounds, Soft, Non distended, Other (tender to light touch and palpation in right lower costal/upper abd in defined bandlike area around to lower parasternal forward and to t6 area in back. No abd tenderness to left nor just below that band.) - Derm Derm: Normal color, Warm and dry, Other (several separate patches of red with small vesicles and one small blister at right parathoracic and laterally to midscapular area. ) - Extremities Extremities: No edema, No calf tenderness / cord - Neuro 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, No motor deficit, No sensory deficit, Normal speech Results - Vitals Vitals: Vital Signs - 24 hr 06/04/22 06/04/22 06/04/22 12:49 12:53 16:14 Temperature 36.9 C 36.8 C 36.5 C Heart Rate 86 84 82 Respiratory 16 16 16 Rate Blood Pressure 144/86 H 130/80 130/82 H O2 Saturation 96 98 98 Oxygen O2 Source Room air PD MEDICAL DECISION MAKING - ED course Complexity details: considered differential (the bandlike distribution of the pain and tenderness to light touch and palpation deeper, with patchy red rash and blisers in same area on back, along with intensity of pain, are very c/w shingles. ), d/w patient Departure - Departure Disposition: 01 Home, Self Care Clinical Impression: Acute thoracic back pain Qualifiers: Back pain laterality: right Qualified Code(s): M54.6 - Pain in thoracic spine Shingles outbreak Qualifiers: Herpes zoster complications: without complications Qualified Code(s): B02.9 - Zoster without complications Condition: Stable Record reviewed to determine appropriate education?: Yes Instructions: ED Shingles Prescriptions: dexAMETHasone [Decadron] 4 mg PO DAILY #7 tablet Lidocaine Patch 5% [Lidoderm Patch] 1 patch TOP DAILY PRN #10 patch PRN Reason: pain oxyCODONE [Roxicodone] 5 mg PO Q6H PRN #15 tablet PRN Reason: Pain Valacyclovir HCl [Valtrex] 1,000 mg PO TID #20 tablet Comments: This has the character and pattern and appearance of shingles. I would treated with valacyclovir antiviral medication 3 times daily for a week as well as Decadron steroid daily for a week. This tries to decrease the inflammation of the nerve and the viral load to decrease his symptoms and duration. For symptoms, you can try a lidocaine patch in the back where the pain seems to originate. Use Tylenol 500 to 650 mg 4 times daily for the next week or so. Add oxycodone every 6-8 hours if needed for worse pain. I transmitted prescriptions to [facility] in [place]. My narcotic instructions I am prescribing a short course of narcotic pain medication for you. These are potentially dangerous and addictive medications that should be used carefully. These medications may constipate you. Take an dwuo-tww-[id number] stool softener such as docusate twice daily with plenty of water while taking these medicati ons. If you go 24 hours without a bowel movement, take jflj-cdh-[id number] MiraLAX, per package instructions. Do not drink or drive while taking these medications. If you received narcotic or sedating medications while in the emergency department do not drive for 24 hours. Store this medication in a safe, secure place and out of reach of children. It is a violation of federal law to give or sell this medication to another person or to use in a manner other than prescribed. The ED will not refill narcotic prescriptions, including prescriptions lost or stolen. You can dispose of unwanted medications at the [facility]'s office or at several pharmacies such as [facility]. Discharge Date/Time: 06/04/22 16:14
[2022-06-04] MEDS ORDERED: valACYclovir 500 MG TABLET PO STA (15:13)
[2022-06-04] MEDS ORDERED: oxyCODONE 5 MG TABLET PO STA (15:13)
[2022-06-04] MEDS ORDERED: CHERRY SYRUP 10 ML UDC PO ONE (15:13)
[2022-06-04] MEDS ORDERED: DEXAMETHASONE 10 MG/ML VIAL PO STA (15:13)
[2022-06-04] MEDS ORDERED: LIDOCAINE PATCH 5% TOP STA (15:13)
[2022-06-04 16:15] VITALS: BP 130/82
== END 2022-06-04 16:14 | disposition home or self-care (01) ==
LOC: ED 12:36
DX: M54.6 Pain in thoracic spine (principal); B02.9 Zoster without complications; F17.200 Nicotine dependence, unspecified, uncomplicated
CPT/HCPCS: 87252; 99283; 99284; A9270

== ENCOUNTER 2022-08-22 09:35 | Outpatient (CLI) | payer MEDICARE | END 2022-08-22 09:36 | disposition home or self-care (01) | LOC: LAB.S 09:35 | PROVIDERS: ATTEND Nurse Practitioner Acute Care | DX: Z53.9 Procedure and treatment not carried out, unspecified reason (principal) | CPT/HCPCS: 36415; 80053; 80061; 83721; 84443; 85025 ==

== ENCOUNTER 2022-08-23 07:53 | Outpatient (CLI) | payer MEDICARE ==
[2022-08-23 14:40] LABS: BASOPHILS # (AUTO) 0.1 10^3/uL (0.0-0.1); EOSINOPHILS # (AUTO) 0.1 10^3/uL (0.0-0.7); HCT - HEMATOCRIT 47.1 % (37.0-47.0); HGB - HEMOGLOBIN 15.1 g/dL (12.0-16.0); LYMPHOCYTES # (AUTO) 2.3 10^3/uL (1.5-3.5); LYMPHOCYTES % (AUTO) 33.1 %; MEAN CORPUSCULAR HEMOGLOBIN 29.6 pg (27.0-31.0); MEAN CORPUSCULAR HGB CONC 32.1 g/dL (32.0-36.0); MEAN CORPUSCULAR VOLUME 92.4 fL (81.0-99.0); MEAN PLATELET VOLUME 12.6 fL (7.9-10.8); MONOCYTES # (AUTO) 0.4 10^3/uL (0.0-1.0); MONOCYTES % (AUTO) 6.1 %; NEUTROPHILS % (AUTO) 57.4 %; PLT - PLATELET COUNT 158 10^3/uL (130-450); RED CELL DISTRIBUTION WIDTH 13.9 % (12.0-15.0); WHITE BLOOD COUNT 6.9 x10^3/uL (4.8-10.8)
[2022-08-23 15:24] LABS: THYROID STIMULATING HORMONE 18.8 uIU/mL (0.34-5.60)
[2022-08-23 17:24] LABS: ALBUMIN/GLOBULIN RATIO 1.3 (1.0-2.2); ALKALINE PHOSPHATASE 52 IU/L (42-121); ALT ALANINE AMINOTRANSFERASE 12 IU/L (10-60); AST ASPARTATE AMINOTRANSFERASE 18 IU/L (10-42); BILIRUBIN,TOTAL 0.9 mg/dL (0.2-1.0); BUN - BLOOD UREA NITROGEN 15 mg/dL (6-20); CALCIUM 10.2 mg/dL (8.5-10.3); CARBON DIOXIDE - CO2 25 mmol/L (21-32); CHLORIDE 103 mmol/L (101-111); CHOL/HDL RATIO 3.8 (<4.4); CHOLESTEROL 181 mg/dL; CREATININE 0.9 mg/dL (0.4-1.0); GFR - MDRD 60 (>89); GLUCOSE 98 mg/dL (70-100); HDL CHOLESTEROL 48 mg/dL; LDL CHOLESTEROL,CALCULATED 112 mg/dL; LDL/HDL RATIO 2.3 (<4.4); POTASSIUM 3.8 mmol/L (3.5-5.0); SODIUM 141 mmol/L (135-145); TOTAL PROTEIN 7.2 g/dL (6.7-8.2); TRIGLYCERIDES 106 mg/dL; VLDL CHOLESTEROL 21 mg/dL
[2022-08-23 18:44] LABS: FREE T4 (FREE THYROXINE) 1.19 ng/dL (0.58-1.64)
== END 2022-08-23 07:54 | disposition home or self-care (01) ==
LOC: LAB.S 07:53
PROVIDERS: ATTEND Nurse Practitioner Acute Care
DX: Z13.228 Encounter for screening for other metabolic disorders (principal); Z13.220 Encounter for screening for lipoid disorders; Z13.29 Encounter for screening for other suspected endocrine disorder; Z13.0 Encounter for screening for diseases of the blood and blood-forming organs and certain disorders involving the immune mechanism
CPT/HCPCS: 36415; 80053; 80061; 83721; 84439; 84443; 85025

== ENCOUNTER 2022-08-31 11:50 | Outpatient (CLI) | payer MEDICARE ==
--- NOTE | 2022-08-31 19:00 | Ultrasound Report ---
PROCEDURE: Ankle Brachial Index INDICATIONS: BILATERAL CLAUDICATION. History of smoking. TECHNIQUE: Ankle-brachial indices were obtained bilaterally and recorded. COMPARISONS: None. FINDINGS: Right brachial pressure: 170/77 Left brachial pressure: 176/92 Right ankle brachial index (TERESO): 1.0 Right ankle pressure: 182/79 Left ankle brachial index (TERESO): 0.9 Left ankle pressure: 162/97 Healing potential: Ankle pressures >55 mm Hg in non-diabetics and >80 mm Hg in diabetics are likely to achieve primary h ealing of ischemic foot ulcers. Toe pressures >30 mm Hg are likely to achieve primary healing of ischemic foot ulcers, toe or transme tatarsal amputations. IMPRESSION: Normal ankle brachial index bilaterally. Reviewed by: Den Prabhakar MD on 08/31/2022 6:58 PM PST Approved by: Den Prabhakar MD on 08/31/2022 6:58 PM PST Station ID: [id number]
== END 2022-08-31 11:51 | disposition home or self-care (01) ==
LOC: DI 11:50
PROVIDERS: ATTEND Nurse Practitioner Acute Care
DX: I73.9 Peripheral vascular disease, unspecified (principal)
CPT/HCPCS: 93922

== ENCOUNTER 2022-09-09 14:20 | Outpatient (CLI) | payer MEDICARE | END 2022-09-09 14:21 | disposition home or self-care (01) | LOC: MAC.MOP 14:20 | PROVIDERS: ATTEND Nurse Practitioner Acute Care | DX: I49.9 Cardiac arrhythmia, unspecified (principal) | CPT/HCPCS: 93242 ==

== ENCOUNTER 2022-09-28 09:18 | Outpatient (CLI) | payer MEDICARE | END 2022-09-28 09:19 | disposition home or self-care (01) | LOC: DI 09:18 | PROVIDERS: ATTEND Nurse Practitioner Acute Care | DX: R55 Syncope and collapse (principal) | CPT/HCPCS: 93306 ==

== ENCOUNTER 2022-09-30 14:27 | Outpatient (CLI) | payer MEDICARE | END 2022-09-30 14:28 | disposition home or self-care (01) | LOC: MAC.INF 14:27 | PROVIDERS: ATTEND Nurse Practitioner Acute Care | DX: I47.1 Supraventricular tachycardia (principal); I49.1 Atrial premature depolarization; I49.3 Ventricular premature depolarization | CPT/HCPCS: 93244 ==

== ENCOUNTER 2022-11-10 09:24 | Outpatient (CLI) | payer MEDICARE ==
[2022-11-10 14:34] LABS: CHOL/HDL RATIO 3.2 (<4.4); CHOLESTEROL 197 mg/dL; HDL CHOLESTEROL 62 mg/dL; LDL CHOLESTEROL,CALCULATED 117 mg/dL; LDL/HDL RATIO 1.9 (<4.4); TRIGLYCERIDES 90 mg/dL; VLDL CHOLESTEROL 18 mg/dL
[2022-11-10 14:39] LABS: T4 (THYROXINE) 9.49 ug/dL (6.09-12.23)
[2022-11-10 14:45] LABS: THYROID STIMULATING HORMONE 23.06 uIU/mL (0.34-5.60)
== END 2022-11-10 09:25 | disposition home or self-care (01) ==
LOC: LAB.S 09:24
PROVIDERS: ATTEND Nurse Practitioner Acute Care
DX: E03.9 Hypothyroidism, unspecified (principal); Z13.220 Encounter for screening for lipoid disorders; Z13.29 Encounter for screening for other suspected endocrine disorder
CPT/HCPCS: 36415; 80061; 83721; 84436; 84439; 84443; 84480

== ENCOUNTER 2022-11-29 07:47 | Outpatient (CLI) | payer MEDICARE ==
[2022-11-29] MEDS: ALBUTEROL 1 PUFF INH STA (09:32)
== END 2022-11-29 07:48 | disposition home or self-care (01) ==
LOC: RT 07:47
PROVIDERS: ATTEND Nurse Practitioner Acute Care
DX: R06.09 Other forms of dyspnea (principal)
CPT/HCPCS: 94060

== ENCOUNTER 2022-12-13 12:46 | Outpatient (CLI) | payer MEDICARE ==
--- NOTE | 2022-12-14 10:05 | Mammography Report ---
BILATERAL DIGITAL SCREENING MAMMOGRAM 3D/2D: 12/13/2022 CLINICAL: Routine screening. Comparison is made to exams dated: 09/28/2021 mammogram, 09/28/2021 mammogram, 09/10/2020 mammogram, mammogram, 12/08/2015 mammogram, and 10/17/2013 mammogram - [facility]. Both breasts are heterogeneously dense, which may obscure small masses (category c / 51-75% glandular tissue). No significant masses, calcifications, or other findings are seen in either breast. There has been no significant interval change. IMPRESSION: NEGATIVE There is no mammographic evidence of malignancy. A 1 year screening mammogram is recommended. Based on the Tyrer Cuzick model (a risk assessment model) the patients lifetime risk is 1.3% and her 10 year risk is 0.0%. According to the ACR, ACS, and NCCN guidelines, an annual breast MRI exam pete g with mammogram is recommended if the patients lifetime risk is 20% or greater. This exam was interpreted at Station ID: [id number]. NOTE: For mammograms, a report in lay terms will be sent to the patient. Approximately 15% of breast malignancies will not be visualized mammographically. In the management of a palpable breast mass, a negative mammogram must not discourage biopsy of a clinically suspicious lesion. Electronically Signed By: Russell plaza/johan:12/13/2022 15:45:07 letter sent: No_Letter ACR BI-RADS Category 1: Negative 3341F PARENCHYMAL PATTERN: (D) - The breast(s) demonstrate(s) heterogeneously dense fibroglandular campos jamison. BI-RADS CATEGORY: (1) - 1 Mammogram [id number] 1 year screening LATERALITY: (B)
== END 2022-12-13 12:47 | disposition home or self-care (01) ==
LOC: DI 12:46
PROVIDERS: ATTEND Nurse Practitioner Acute Care
DX: Z12.31 Encounter for screening mammogram for malignant neoplasm of breast (principal)

== ENCOUNTER 2022-12-13 12:46 | Outpatient (CLI) | payer MEDICARE ==
--- NOTE | 2022-12-13 16:14 | DEXA Report ---
PROCEDURE: Dexa Spine and/or Hip INDICATIONS: LUNG NODULES, POST MENOPAUSAL TECHNIQUE: Dual energy x-ray absorptiometry (DXA) was performed on a [employer] System. Regions measur ed are the AP Spine, femoral neck, and if needed forearm. COMPARISON: 09/20/2021 FINDINGS: Lumbar Spine: Bone Mineral Density 0.902 g/cm/cm,T score -2.4. Osteopenia. Previous T score -2.5. There has been n o statistically significant change in bone mineral density since the prior study. Left Femoral Neck: Bone Mineral Density 0.701 g/cm/cm, T score -2.4. Osteopenia. Previous T score -2.3. Left Hip: Bone Mineral Density 0.723 g/cm/cm,T score -2.3. Osteopenia. Previous T score -2.0. Since the most re cent prior study, there has been a statistically significant decrease in bone mineral density by 4.9 percent. (T score greater or equal to -1.0: NORMAL) (T score from -1.1 to -2.4: OSTEOPENIA) (T score less than or equal to -2.5 to: OSTEOPOROSIS) Impression: By WHO criteria, this patient has low bone density (osteopenia). No statistical interval change in bone minteral density of the lumbar spine. Interval statistical dec rease in bone minteral density of the hip. Patients with diagnosis of osteoporosis or osteopenia should have regular bone mineral density assess ment. For those eligible for Medicare, routine testing is allowed once every 2 years. Testing frequ ency can be increased for patients who have rapidly progressing disease or for those who are receivin g medical therapy to restore bone mass. Reviewed by: Den Prabhakar MD on 12/13/2022 4:13 PM PDT Approved by: Den Prabhakar MD on 12/13/2022 4:13 PM PDT Station ID: [id number]
--- NOTE | 2022-12-14 08:30 | CT Report ---
PROCEDURE: CHEST WO INDICATIONS: LUNG NODULES, POST MENOPAUSAL TECHNIQUE: Noncontrast 1mm axial images were acquired from the pulmonary apices to the posterior costophrenic an gles. Axial 5 mm soft tissue kernel reconstructions were performed as well as 8 mm axial MIP and cor onal and sagittal 5 mm reformations. For radiation dose reduction, the following was used: automate d exposure control, adjustment of mA and/or kV according to patient size. COMPARISON: CT chest 09/20/2021 FINDINGS: Lymph nodes: No evidence of thoracic lymphadenopathy however evaluation for mediastinal and hilar carlitos nopathy is limited in the absence of intravenous contrast. Vasculature: Aorta and main pulmonary artery diameters are within normal range. Heart: No pericardial effusion. Lung parenchyma and pleura: The previously described new 3 mm right upper lobe nodule is no longer vi sualized. 2 mm right lower lobe nodule (4/198), unchanged. No consolidation or pleural effusion. Mild emphysema. Redemonstrated lingular bronchiectasis. Chest wall/musculoskeletal: Multilevel degenerative change of the visualized spine. Visualized upper abdomen: Small hiatal hernia. IMPRESSION: 1. Previously described new 3 mm right upper lobe nodule is no longer visualized. 2. Tiny right lower lobe pulmonary nodule is not significantly changed. Reviewed by: Den Prabhakar MD on 12/14/2022 8:29 AM PDT Approved by: Den Prabhakar MD on 12/14/2022 8:29 AM PDT Station ID: [id number]
== END 2022-12-13 12:47 | disposition home or self-care (01) ==
LOC: DI 12:46
PROVIDERS: ATTEND Nurse Practitioner Acute Care
DX: Z78.0 Asymptomatic menopausal state (principal); M85.89 Other specified disorders of bone density and structure, multiple sites; R91.1 Solitary pulmonary nodule

== ENCOUNTER 2023-01-19 09:22 | Outpatient (CLI) | payer MEDICARE ==
[2023-01-19 14:53] LABS: THYROID STIMULATING HORMONE 6.83 uIU/mL (0.34-5.60)
[2023-01-19 14:54] LABS: FREE T3 2.46 pg/mL (2.5-3.9)
[2023-01-19 15:23] LABS: FREE T4 (FREE THYROXINE) 0.9 ng/dL (0.58-1.64)
== END 2023-01-19 09:23 | disposition home or self-care (01) ==
LOC: LAB.S 09:22
PROVIDERS: ATTEND Nurse Practitioner Acute Care
DX: E03.9 Hypothyroidism, unspecified (principal)
CPT/HCPCS: 36415; 84439; 84443; 84481

== ENCOUNTER 2023-02-10 19:29 | Outpatient (CLI) | payer MEDICARE | END 2023-02-10 23:59 | disposition EMS.NT | LOC: EMS 19:29 | DX: R42 Dizziness and giddiness (principal); R11.0 Nausea; R68.2 Dry mouth, unspecified; T40.715A Adverse effect of cannabis, initial encounter ==

== ENCOUNTER 2023-04-19 08:15 | Outpatient (CLI) | payer MEDICARE ==
[2023-04-19 15:10] LABS: THYROID STIMULATING HORMONE 4.17 uIU/mL (0.34-5.60)
== END 2023-04-19 08:16 | disposition home or self-care (01) ==
LOC: LAB.S 08:15
PROVIDERS: ATTEND Nurse Practitioner Acute Care
DX: E03.9 Hypothyroidism, unspecified (principal)
CPT/HCPCS: 36415; 84443

== ENCOUNTER 2023-07-03 07:00 | Outpatient (CLI) | payer MEDICARE ==
--- NOTE | 2023-07-03 14:04 | XRAY Report ---
PROCEDURE: Chest 2 View X-Ray INDICATIONS: ACUTE COUGH TECHNIQUE: 2 views of the chest were acquired. COMPARISON: Chest CT 12/13/2022, x-ray 04/16/2022 FINDINGS: Surgical changes and devices: None. Lungs and pleura: No pleural effusions or pneumothorax. Lungs are clear. Mediastinum: Mediastinal contours appear normal. Heart size is normal. Bones and chest wall: No suspicious bony lesions. Degenerative changes in the thoracic spine. Overl john soft tissues appear unremarkable. IMPRESSION: No acute cardiopulmonary process. Reviewed by: Darlin Estrada MD on 07/03/2023 2:02 PM PST Approved by: Darlin Estrada MD on 07/03/2023 2:02 PM PST Station ID: [id number]
== END 2023-07-03 23:59 | disposition home or self-care (01) ==
LOC: DI.S 07:00
PROVIDERS: ATTEND Registered Nurse
DX: R05.1 Acute cough (principal); R53.83 Other fatigue; R06.09 Other forms of dyspnea

== ENCOUNTER 2023-07-03 08:00 | Outpatient (CLI) | payer MEDICARE | END 2023-07-03 08:01 | disposition home or self-care (01) | LOC: LAB.S 08:00 | PROVIDERS: ATTEND Registered Nurse | DX: R05.1 Acute cough (principal); R53.83 Other fatigue; R06.09 Other forms of dyspnea ==

== ENCOUNTER 2023-07-13 08:37 | Outpatient (CLI) | payer MEDICARE ==
[2023-07-13 15:15] LABS: THYROID STIMULATING HORMONE 1.28 uIU/mL (0.34-5.60)
== END 2023-07-13 08:38 | disposition home or self-care (01) ==
LOC: LAB.S 08:37
PROVIDERS: ATTEND Nurse Practitioner Acute Care
DX: E03.9 Hypothyroidism, unspecified (principal); R53.83 Other fatigue
CPT/HCPCS: 36415; 82306; 84436; 84443; 84481

== ENCOUNTER 2023-09-06 07:54 | Outpatient (CLI) | payer MEDICARE ==
[2023-09-06 14:24] LABS: BASOPHILS # (AUTO) 0.1 10^3/uL (0.0-0.1); BASOPHILS % (AUTO) 1.2 %; EOSINOPHILS # (AUTO) 0.1 10^3/uL (0.0-0.7); EOSINOPHILS % (AUTO) 1.9 %; HCT - HEMATOCRIT 46.2 % (37.0-47.0); HGB - HEMOGLOBIN 14.4 g/dL (12.0-16.0); LYMPHOCYTES # (AUTO) 2.1 10^3/uL (1.5-3.5); LYMPHOCYTES % (AUTO) 31.8 %; MEAN CORPUSCULAR HEMOGLOBIN 28.6 pg (27.0-31.0); MEAN CORPUSCULAR HGB CONC 31.2 g/dL (32.0-36.0); MEAN CORPUSCULAR VOLUME 91.7 fL (81.0-99.0); MEAN PLATELET VOLUME 12.4 fL (7.9-10.8); MONOCYTES # (AUTO) 0.4 10^3/uL (0.0-1.0); MONOCYTES % (AUTO) 5.8 %; NEUTROPHILS % (AUTO) 59.2 %; PLT - PLATELET COUNT 167 10^3/uL (130-450); RED BLOOD COUNT 5.04 10^6/uL (4.20-5.40); RED CELL DISTRIBUTION WIDTH 12.9 % (12.0-15.0); WHITE BLOOD COUNT 6.7 x10^3/uL (4.8-10.8)
[2023-09-06 16:05] LABS: ALBUMIN 4.1 g/dL (3.2-5.5); ALBUMIN/GLOBULIN RATIO 1.5 (1.0-2.2); ALKALINE PHOSPHATASE 54 IU/L (42-121); ALT ALANINE AMINOTRANSFERASE 9 IU/L (10-60); AST ASPARTATE AMINOTRANSFERASE 14 IU/L (10-42); BILIRUBIN,TOTAL 0.6 mg/dL (0.2-1.0); BUN - BLOOD UREA NITROGEN 17 mg/dL (6-20); CALCIUM 9.4 mg/dL (8.5-10.3); CARBON DIOXIDE - CO2 25 mmol/L (21-32); CHLORIDE 110 mmol/L (101-111); CHOL/HDL RATIO 2.8 (<4.4); CHOLESTEROL 136 mg/dL; CREATININE 0.8 mg/dL (0.6-1.3); GFR - MDRD 69 (>89); GLUCOSE 106 mg/dL (74-104); HDL CHOLESTEROL 49 mg/dL; LDL CHOLESTEROL,CALCULATED 63 mg/dL; LDL/HDL RATIO 1.3 (<4.4); POTASSIUM 4.1 mmol/L (3.5-4.5); SODIUM 141 mmol/L (135-145); TOTAL PROTEIN 6.8 g/dL (6.4-8.9); TRIGLYCERIDES 120 mg/dL (48-352); VLDL CHOLESTEROL 24 mg/dL
[2023-09-06 16:23] LABS: THYROID STIMULATING HORMONE 0.15 uIU/mL (0.34-5.60)
== END 2023-09-06 07:55 | disposition home or self-care (01) ==
LOC: LAB.S 07:54
PROVIDERS: ATTEND Nurse Practitioner Acute Care
DX: Z13.228 Encounter for screening for other metabolic disorders (principal); Z13.29 Encounter for screening for other suspected endocrine disorder; Z13.0 Encounter for screening for diseases of the blood and blood-forming organs and certain disorders involving the immune mechanism
CPT/HCPCS: 36415; 80053; 80061; 83721; 84439; 84443; 85025

== ENCOUNTER 2023-11-08 07:20 | Outpatient (CLI) | payer MEDICARE ==
[2023-11-08 15:10] LABS: THYROID STIMULATING HORMONE 1.7 uIU/mL (0.34-5.60)
== END 2023-11-08 07:21 | disposition home or self-care (01) ==
LOC: LAB.S 07:20
PROVIDERS: ATTEND Nurse Practitioner Acute Care
DX: E55.9 Vitamin D deficiency, unspecified (principal); E03.9 Hypothyroidism, unspecified
CPT/HCPCS: 36415; 82306; 84443; 84481

== ENCOUNTER 2024-01-25 09:32 | Outpatient (CLI) | payer MEDICARE ==
--- NOTE | 2024-01-25 10:25 | XRAY Report ---
PROCEDURE: Chest 2V INDICATIONS: ACUTE LOWER RESPIRATORY INFECTION, reported smoking TECHNIQUE: 2 views of the chest were acquired. COMPARISON: None. FINDINGS: Surgical changes and devices: None. Lungs and pleura: A nodular region of the left lung base is favored to represent end-on calcified co stal cartilage. Mild diffuse peribronchial thickening. No dense airspace disease or pleural effusion Mediastinum: Heart size is at the upper limit of normal. Bones and chest wall: Degenerative changes. IMPRESSION: Mild peribronchial thickening, likely bronchitis/viral infection. Consider future imaging surveillanc e to assess for resolution. No dense airspace disease or pleural effusion A nodular region of the left lung base is favored to represent end-on calcified costal cartilage. Reviewed by: Alistair Rosen MD on 01/25/2024 10:24 AM PDT Approved by: Alistair Rosen MD on 01/25/2024 10:24 AM PDT Station ID: [id number]
== END 2024-01-25 09:33 | disposition home or self-care (01) ==
LOC: DI 09:32
PROVIDERS: ATTEND Emergency Medicine
DX: J22 Unspecified acute lower respiratory infection (principal)